=== PATIENT | male | born 1970 | race Caucasian/White ===

== ENCOUNTER 2016-11-09 18:19 | Inpatient (IN) | payer OTHER ==
[~2016-11-09] VITALS: Ht 182.9 cm; Wt 90.7 kg
--- NOTE | 2016-11-09 18:48 | ED GI/GU/ABDOMINAL COMPLAINT ---
History of Present Illness General Chief Complaint: Male Genitourinary Problems Stated Complaint: SENT BY DR ANDRADE FOR EVAL OF FEVER Source: patient Exam Limitations: no limitations Vital Signs & Intake/Output Vital Signs & Intake/Output Vital Signs Date Time Temp Pulse Resp B/P Pulse O2 O2 Flow FiO2 Ox Delivery Rate 11/09 2126 97.0 96 20 132/76 98 Room Air 11/09 1936 Room Air 11/09 1831 96.2 128 20 147/82 95 Room Air Allergies Coded Allergies: No Known Allergies (11/09/16) Reconcile Medications Aspirin (Ecotrin*) 81 MG TABLET.DR 10 TAB PO PRN PAIN (Reported) Divalproex Sodium (Divalproex Sodium ER) 500 MG TAB.ER.24H 1,500 MG PO QAM MENTAL HEALTH (Reported) Esomeprazole Magnesium (Nexium) 20 MG CAPSULE.DR 1 CAP PO DAILY GI (Reported) Hydroxyzine HCl 25 MG TABLET 2 CAP PO QPM MENTAL HEALTH (Reported) Mirtazapine 45 MG TABLET 1 TAB PO QPM MENTAL HEALTH (Reported) Quetiapine Fumarate 300 MG TABLET 2 TAB PO QPM MENTAL HEALTH (Reported) Venlafaxine HCl (Venlafaxine HCl ER) 150 MG CAP.ER.24H 2 CAP PO QPM MENTAL HEALTH (Reported) Triage Note: PT TO ED C/O LEFT TESTICLE PAIN AND SWELLING X A FEW WEEKS. PT SAW DR PUGH AND WAS GIVEN ABX AND PAIN MEDS. PT STATES HE IS DONE WITH THE ABX AND THE PAIN AND SWELLING IS STILL THERE. PT WENT TO SEE DR GONZALEZ AND WAS TOLD TO COME TO ED FOR FURTHER EVAL. PT AFEBRILE, HOWEVER SWEATING WITH RIGORS. Triage Nurses Notes Reviewed? yes Onset: Abrupt Duration: week(s):, constant, getting worse Timing: recent history Location: scrotal Radiation: no radiation No Modifying Factors: none HPI: 46-year-old male comes into emergency room with complaints of severe testicular pain and swelling. Patient reports that he saw his primary care doctor initially and was prescribed antibiotics. Symptoms got progressively worse. This is been going on-and-off for about a month. Patient saw Dr. Gonzalez today who sent into the emergency room for further evaluation. She shooting pain. Associated fever chills. (JIMENEZ SANFORD,TRENT) Past History Travel History Traveled to [place] past 21 day No Medical History Any Pertinent Medical History? see below for history Psychiatric: bipolar disease Surgical History Surgical History: non-contributory Psychosocial History What is your primary language Kiswahili Tobacco Use: Current Daily Use Daily Tobacco Use Amount/Type: => 5 Cigarettes daily ETOH Use: denies use Illicit Drug Use: denies illicit drug use Family History Hx Contributory? No (TRENT HAN) Review of Systems Review of Systems Constitutional: Reports: see HPI. EENTM: Reports: no symptoms. Respiratory: Reports: no symptoms. Cardiovascular: Reports: see HPI. GI: Reports: no symptoms. Genitourinary: Reports: no symptoms, see HPI. Musculoskeletal: Reports: no symptoms. Skin: Reports: no symptoms. Neurological/Psychological: Reports: no symptoms. Hematologic/Endocrine: Reports: no symptoms. Immunologic/Allergic: Reports: no symptoms. All Other Systems: Reviewed and Negative (TRENT HAN) Physical Exam Physical Exam General Appearance: alert, awake, moderate distress Head: atraumatic, normal appearance Eyes: Bilateral: normal appearance, EOMI. Ears, Nose, Throat, Mouth: hearing grossly normal, moist mucous membrane Neck: normal inspection, full range of motion Respiratory: normal breath sounds, no respiratory distress Cardiovascular: regular rate/rhythm, tachycardia Gastrointestinal: soft Male Genitals: severe swelling, testicles tender to palpation, firm, Extremities: normal range of motion Neurologic/Psych: awake, alert, oriented x 3, normal gait, normal mood/affect Skin: intact, normal color Core Measures ACS in differential dx? No Severe Sepsis Present: No Septic Shock Present: No (TRENT HAN) Progress Differential Diagnosis: orchitis, pancreatitis, prostatitis, peptic ulcer, PUD/ GERD, perforated viscous, pyelonephritis, testicular torsion, ureterolithiasis, urinary retention, urethritis, UTI/pyelo Plan of Care: Orders Procedure Date/time Status LACTIC ACID 11/09 2145 Active Admit to inpatient 11/09 2127 Active LACTIC ACID 11/09 184 Active EKG 11/09 1846 Active BLOOD CULTURE 11/09 183 Active URINALYSIS 11/09 183 Complete COMPREHENSIVE METABOLIC PANEL 11/09 183 Complete CBC WITHOUT DIFFERENTIAL 11/09 1829 Complete Laboratory Tests 11/09/165: Urine Color YEL, Urine Clarity CLEAR, Urine pH 8.0, Ur Specific [place] 1.015, Urine Protein 30 H, Urine Ketones NEG, Urine Nitrite NEG, Urine Bilirubin NEG, Urine Urobilinogen 1.0, Ur Leukocyte Esterase NEG, Ur Microscopic SEDIMENT EXAMINED, Urine WBC 1-3 H, Urine Mucus RARE, Urine Hemoglobin NEG, Urine Glucose NEG 11/09/162053: Lactic Acid Pending 11/09/161914: Anion Gap 15, Estimated GFR > 60, BUN/Creatinine Ratio 13.8, Glucose 102 H, Calcium 10.2, Total Bilirubin 0.5, AST 23, ALT 39, Alkaline Phosphatase 98, Total Protein 8.2, Albumin 4.4, Globulin 3.8, Albumin/Globulin Ratio 1.2, CBC w Diff NO MAN DIFF REQ, RBC 5.26, MCV 86.4, MCH 28.5, RDW 13.3, MPV 8.5, Gran % 71.8, Lymphocytes % 21.6, Monocytes % 4.5, Eosinophils % 1.9, Basophils % 0.2, Absolute Granulocytes 7.5 H, Absolute Lymphocytes 2.3, Absolute Monocytes 0.5, Absolute Eosinophils 0.2, Absolute Basophils 0, PUBS MCHC 33.0 Microbiology 11/09 1914 BLOOD: Blood Culture - RECD 11/09 1904 BLOOD: Blood Culture - RECD Diagnostic Imaging: Viewed by Me: Ultrasound. Discussed w/RAD: Ultrasound. Initial ED EKG: normal intervals, normal p-waves, normal sinus rhythm Hand-Off Endorsed To: FREDERICK LINDSAY,CASSIE Folres Endorsed Time: 2056 (TRENT HAN) Departure Departure Disposition: STILL A PATIENT Condition: Stable Clinical Impression Primary Impression: Epididymitis Referrals: SERJIO PUGH MD (PCP/Family) Departure Forms: Customer Survey General Discharge Information Admission Note Spoke With: JULIANE GONZALEZ MD Documentation of Exam: aDocumentation of any treatments & extenuating circumstances including Concerns Regarding Discharge (functional status, medication knowledge or non-compliance, living conditions, etc.) that warrant an admission rather than observation: Patient will require IV antibiotics. IV fluids. Possible surgery. Patient has failed outpatient treatment with oral medications. Patient will require IV pain control. (TRENT HAN) PA/MARBLE MACHINE OPERATOR Co-Sign Statement Statement: ED Attending supervision documentation- [] I saw and evaluated the patient. I have also reviewed all the pertinent lab results and diagnostic results. I agree with the findings and the plan of care as documented in the PA's/MARBLE MACHINE OPERATOR's documentation. [X] I have reviewed the ED Record and agree with the PA's/MARBLE MACHINE OPERATOR's documentation. [] Additions or exceptions (if any) to the PAs/MARBLE MACHINE OPERATOR's note and plan are summarized below: [] (FREDERICK LINDSAY,CASSIE Flores)
[2016-11-09] MEDS ORDERED: DIVALPROEX SOD500 M3 PO (18:57)
[2016-11-09] MEDS ORDERED: QUETIAPINE FUM300 M1 PO (18:59)
[2016-11-09] MEDS ORDERED: VENLAFAXINE HC150 MG PO (19:00)
[2016-11-09] MEDS ORDERED: MIRTAZAPINE45 M1 PO (19:01)
[2016-11-09] MEDS ORDERED: HYDROXYZINE HCL25 M2 PO (19:01)
[2016-11-09] MEDS ORDERED: NEXIUM20 M1 PO (19:02)
[2016-11-09] MEDS ORDERED: ASPIRIN EC81 M1 PO (19:02)
[2016-11-09 19:31] LABS: ABSOLUTE BASOPHIL COUNT 0 /CUMM (0.0-0.2); ABSOLUTE EOSINOPHIL COUNT 0.2 /CUMM (0.0-0.7); ABSOLUTE GRANULOCYTE CT 7.5 /CUMM (1.4-6.5); ABSOLUTE LYMPH COUNT 2.3 /CUMM (1.2-3.4); ABSOLUTE MONOCYTE COUNT 0.5 /CUMM (0.10-0.60); BASOPHIL % 0.2 % (0.0-2.0); EOSINOPHIL % 1.9 % (0-5); GRANULOCYTE % 71.8 % (42.2-75.2); HEMATOCRIT 45.4 % (42-52); MEAN CORPUSCULAR HGB 28.5 PG (27.0-31.0); MEAN CORPUSCULAR VOLUME 86.4 FL (80.0-94.0); MEAN PLATELET VOLUME 8.5 FL (7.4-10.4); PLATELET COUNT 525 /CUMM (130-400); RBC DISTRIBUTION WIDTH 13.3 % (11.5-14.5); RED BLOOD CELL CT 5.26 /CUMM (4.70-6.10); WHITE BLOOD CELL COUNT 10.5 /CUMM (4.8-10.8)
--- NOTE | 2016-11-09 20:57 | ULTRASOUND REPORT ---
EXAMINATION: ULTRASOUND SCROTUM CLINICAL INFORMATION: Fever. Testicular pain. COMPARISON: Testicular ultrasound 10/27/2016 TECHNIQUE: Routine scrotal ultrasound with grayscale and spectral and color Doppler. FINDINGS: Testicle: There is homogeneous echotexture of the right and left testicle. No suspicious focal lesion. There is normal variant of an appendix left testicle at the superior pole. Doppler demonstrates arterial and venous vascular flow in both testicles. Right testicle: 4 x 2 x 2.7 cm. Volume 15.3 mL Left testicle: 3.8 x 2.6 x 1.3 cm. Volume 9.1 mL Epididymis: There is normal vascular flow with Doppler.. No abnormal mass. Varices: There is no varices. Hydrocele: There is a left-sided hydrocele. Measures 8.3 x 4.3 x 5.2 cm. There are a few low-level echoes in the fluid which is otherwise anechoic. The hydrocele on the left is similar to prior exam of 10/27/2016. No right-sided hydrocele. Scrotal wall: Unremarkable. IMPRESSION: Large left-sided hydrocele. Normal vascular flow in right and left testicle.
--- NOTE | 2016-11-09 21:50 | Cons- Urology ---
General Information and HPI Consulting Request Date of Consult: 11/09/16 Requested By: MD FREDERICK, ELMIRA Reason for Consult: chills, rigors, severe left scrotal/testicle pain Source of Information: patient Exam Limitations: no limitations History of Present Illness: 46 YEAR OLD WITH LEFT SCROTAL PAIN AND SWELLING, TXD FOR ONE WEEK WITH ABX, AND IS NOW WORSE WITH RIGORS, N/V, CHILLS. NO FEVER, NO DYSURIA. Allergies/Medications Allergies: Coded Allergies: No Known Allergies (11/09/16) Home Med List: Aspirin (Ecotrin*) 81 MG TABLET.DR 10 TAB PO PRN PAIN (Reported) Divalproex Sodium (Divalproex Sodium ER) 500 MG TAB.ER.24H 1,500 MG PO QAM MENTAL HEALTH (Reported) Esomeprazole Magnesium (Nexium) 20 MG CAPSULE.DR 1 CAP PO DAILY GI (Reported) Hydroxyzine HCl 25 MG TABLET 2 CAP PO QPM MENTAL HEALTH (Reported) Mirtazapine 45 MG TABLET 1 TAB PO QPM MENTAL HEALTH (Reported) Quetiapine Fumarate 300 MG TABLET 2 TAB PO QPM MENTAL HEALTH (Reported) Venlafaxine HCl (Venlafaxine HCl ER) 150 MG CAP.ER.24H 2 CAP PO QPM MENTAL HEALTH (Reported) Current Medications: Current Medications Sig/Delia Start time Last Medication Dose Route Stop Time Status Admin Ampicillin Sodium/ 0 .STK-MED ONE 11/09 1905 DC Sulbactam Sodium .ROUTE Ampicillin Sodium/ 3,000 MG ONCE ONE 11/09 1830 DC 11/09 Sulbactam Sodium IV 11/09 Sodium Chloride 100 ML Hydromorphone HCl 1 MG ONCE ONE 11/09 2100 DC 11/09 IV 11/09 Hydromorphone HCl 0 .STK-MED ONE 11/09 2099 DC .ROUTE Hydromorphone HCl 0 .STK-MED ONE 11/09 1905 DC .ROUTE Hydromorphone HCl 1 MG ONCE ONE 11/09 1900 DC 11/09 IV 11/09 Sodium Chloride 1,000 ML BOLUS ONE 11/09 1900 DC 11/09 IV 11/09 Past History Medical History Blood Transfusion Hx: No Psychiatric: bipolar disease Surgical History Pertinent Surgical History: non-contributory Psychosocial History Where Do You Live? Home Who Do You Live With? self Services at Home: None Primary Language: Hungarian ETOH Use: denies use Illicit Drug Use: denies illicit drug use Employment History Employment: Employed Profession/Employer: [employer] Retired? no Review of Systems Review of Systems Constitutional: Denies: no symptoms. EENTM: Denies: no symptoms. Cardiovascular: Reports: palpitations. Respiratory: Denies: no symptoms. GI: Reports: abdominal pain. Genitourinary: Reports: see HPI. Musculoskeletal: Reports: muscle pain, muscle stiffness. Exam & Diagnostic Data Vital Signs and I&O Vital Signs Date Time Temp Pulse Resp B/P Pulse O2 O2 Flow FiO2 Ox Delivery Rate 11/09 2126 97.0 96 20 132/76 98 Room Air 11/09 1935 Room Air 11/09 1830 96.2 128 20 147/82 95 Room Air Physical Exam General Appearance: well developed/nourished Head: atraumatic Eyes: Bilateral: normal appearance. Neck: normal inspection Respiratory: normal breath sounds Cardiovascular: tachycardia Gastrointestinal: normal bowel sounds, soft Back: no vertebral tenderness Extremities: normal inspection Reproductive: LEFT SCROTUM FIRM AND PAINFUL Last 24 Hours of Labs: Laboratory Tests 11/09 Chemistry Lactic Acid (0.7 - 2.1 mmol/L) 1.1 Urines Urine Color (YEL,AMB,STR) YEL Urine Clarity (CLEAR) CLEAR Urine pH (5.0 - 8.0) 8.0 Ur Specific [place] (1.001 - 1.035) 1.015 Urine Protein (NEG,<30 MG/DL) 30 H Urine Ketones (NEG) NEG Urine Nitrite (NEG) NEG Urine Bilirubin (NEG) NEG Urine Urobilinogen (0.1 - 1.0 EU/dl) 1.0 Ur Leukocyte Esterase (NEG) NEG Ur Microscopic SEDIMENT EXAMINED Urine WBC (0 - 2 /HPF) 1-3 H Urine Mucus (FEW,NONE) RARE Urine Hemoglobin (NEG) NEG Urine Glucose (N MG/DL) NEG 11/09 1914 Chemistry Sodium (137 - 145 mmol/L) 144 Potassium (3.5 - 5.1 mmol/L) 4.9 Chloride (98 - 107 mmol/L) 100 Carbon Dioxide (22 - 30 mmol/L) 28 Anion Gap (5 - 16) 15 BUN (9 - 20 mg/dL) 11 Creatinine (0.7 - 1.2 mg/dL) 0.8 Estimated GFR (>60 ml/min) > 60 BUN/Creatinine Ratio (7 - 25 %) 13.8 Glucose (65 - 99 mg/dL) 102 H Calcium (8.4 - 10.2 mg/dL) 10.2 Total Bilirubin (0.2 - 1.3 mg/dL) 0.5 AST (17 - 59 U/L) 23 ALT (21 - 72 U/L) 39 Alkaline Phosphatase (< 127 U/L) 98 Total Protein (6.3 - 8.2 g/dL) 8.2 Albumin (3.5 - 5.0 g/dL) 4.4 Globulin (1.9 - 4.2 gm/dL) 3.8 Albumin/Globulin Ratio (1.1 - 2.2 %) 1.2 Hematology CBC w Diff NO MAN DIFF REQ WBC (4.8 - 10.8 /CUMM) 10.5 RBC (4.70 - 6.10 /CUMM) 5.26 Hgb (14.0 - 18.0 G/DL) 15.0 Hct (42 - 52 %) 45.4 MCV (80.0 - 94.0 FL) 86.4 MCH (27.0 - 31.0 PG) 28.5 RDW (11.5 - 14.5 %) 13.3 Plt Count (130 - 400 /CUMM) 525 H MPV (7.4 - 10.4 FL) 8.5 Gran % (42.2 - 75.2 %) 71.8 Lymphocytes % (20.5 - 51.1 %) 21.6 Monocytes % (1.7 - 9.3 %) 4.5 Eosinophils % (0 - 5 %) 1.9 Basophils % (0.0 - 2.0 %) 0.2 Absolute Granulocytes (1.4 - 6.5 /CUMM) 7.5 H Absolute Lymphocytes (1.2 - 3.4 /CUMM) 2.3 Absolute Monocytes (0.10 - 0.60 /CUMM) 0.5 Absolute Eosinophils (0.0 - 0.7 /CUMM) 0.2 Absolute Basophils (0.0 - 0.2 /CUMM) 0 PUBS MCHC (33.0 - 37.0 G/DL) 33.0 Imaging Results: PATIENT: FLYNTZ,JESSICA PRESENT AGE: 46 PATIENT ACCOUNT NO: [id number] : 71 LOCATION: [facility] ORDERING PHYSICIAN: GARY MARTE MD SERVICE DATE: 11/09/16 EXAM TYPE: US - US-TESTICULAR EXAMINATION: ULTRASOUND SCROTUM CLINICAL INFORMATION: Fever. Testicular pain. COMPARISON: Testicular ultrasound 10/27/2016 TECHNIQUE: Routine scrotal ultrasound with grayscale and spectral and color Doppler. FINDINGS: Testicle: There is homogeneous echotexture of the right and left testicle. No suspicious focal lesion. There is normal variant of an appendix left testicle at the superior pole. Doppler demonstrates arterial and venous vascular flow in both testicles. Right testicle: 4 x 2 x 2.7 cm. Volume 15.3 mL Left testicle: 3.8 x 2.6 x 1.3 cm. Volume 9.1 mL Epididymis: There is normal vascular flow with Doppler.. No abnormal mass. Varices: There is no varices. Hydrocele: There is a left-sided hydrocele. Measures 8.3 x 4.3 x 5.2 cm. There are a few low-level echoes in the fluid which is otherwise anechoic. The hydrocele on the left is similar to prior exam of 10/27/2016. No right-sided hydrocele. Scrotal wall: Unremarkable. IMPRESSION: Large left-sided hydrocele. Normal vascular flow in right and left testicle. Assessment/Plan Assessment/Plan LEFT EPIDIDYMO-ORCHITIS WITH RIGORS/CHILLS/ADMIT FOR IV ABX AND PAIN MANAGEMENT Copies To: JULIANE QUINTERO MD Consult Acknowledgment - Thank you for your consult request. Attending MD Review Statement Attending Statement Attending MD Statement: examined this patient Attending Assessment/Plan: EPIDIDYMITIS-ORCHITIS: SEVERE, ADMIT FOR ABX AND PAIN CONTROL
[2016-11-10 00:30] VITALS: BP 138/84
[2016-11-10 08:17] LABS: ABSOLUTE BASOPHIL COUNT 0 /CUMM (0.0-0.2); ABSOLUTE EOSINOPHIL COUNT 0.3 /CUMM (0.0-0.7); ABSOLUTE GRANULOCYTE CT 5.5 /CUMM (1.4-6.5); ABSOLUTE LYMPH COUNT 2.9 /CUMM (1.2-3.4); ABSOLUTE MONOCYTE COUNT 0.6 /CUMM (0.10-0.60); BASOPHIL % 0.3 % (0.0-2.0); EOSINOPHIL % 3.5 % (0-5); GRANULOCYTE % 58.7 % (42.2-75.2); MEAN CORPUSCULAR HGB CONC 33.4 G/DL (33.0-37.0); MEAN CORPUSCULAR VOLUME 86.7 FL (80.0-94.0); PLATELET COUNT 522 /CUMM (130-400); RBC DISTRIBUTION WIDTH 13.2 % (11.5-14.5); WHITE BLOOD CELL COUNT 9.3 /CUMM (4.8-10.8)
[2016-11-10 08:19] VITALS: BP 132/78
[2016-11-10 08:31] LABS: HEMATOCRIT 36.4 % (42-52)
--- NOTE | 2016-11-10 10:16 | Admission Certification ---
Admission Certification Certification Statement - As attending physician, I certify that at the time of - admission, based on clinical presentation, severity of - symptoms, need for further diagnostic testing and - therapeutic interventions, and risk of adverse outcomes - without in-hospital treatment, in my clinical assessment, - this patient requires an acute hospital stay for a minimum - of two nights or longer. I have also considered psychsocial - factors such as support system, advanced age, financial - issues, cognitive issues, and failed out-patient treatments, - past re-admission history, safety of patient, and lack of - compliance as applicable. Specific rationale supporting this admission is: acute epididymitis
--- NOTE | 2016-11-10 10:22 | PN- Att Addend ---
Attending Addendum Attending Brief Note Patient complains of left scrotal pain and swelling General Appearance: Alert, No Acute Distress Skin: Grossly normal HEENT: PEERLA Neck: Supple, No JVD Cardiovascular: Regular Rate, Normal S1, Normal S2, No Murmurs Lungs: Clear to Auscultation, Normal Air Movement Abdomen: Left scrotal swelling, redness and tenderness Neurological: Normal Speech, Strength at 5/5 X4 Ext, Cranial Nerves 3-12 NL, Reflexes 2+ Extremities: No Clubbing, No Cyanosis, No Edema Vascular: Normal Pulses Assessment 46-year-old with history of bipolar disorder and chronic back pain presenting with left scrotal pain and swelling that is on and off for last few weeks. He was seen at our office and was started on oral antibiotics with failure. He now presents with severe pain associated with chills and rigors. He has acute epididymitis. He will be treated conservatively with IV antibiotics with urology consult Plan Continue IV Unasyn Follow blood cultures Urology consult Continue other home meds DVT prophylaxis Current Medications Sig/Delia Start time Last Medication Dose Route Stop Time Status Admin Acetaminophen 650 MG Q6PRN PRN 11/09 2200 AC PO Al Hydroxide/Mg 30 ML Q6P PRN 11/09 2200 AC Hydroxide PO Ampicillin Sodium/ 3,000 MG Q6 11/10 1200 AC Sulbactam Sodium IV Sodium Chloride 100 ML Ampicillin Sodium/ 0 .STK-MED ONE 11/09 1905 DC Sulbactam Sodium .ROUTE Ampicillin Sodium/ 3,000 MG ONCE ONE 11/09 1830 DC 11/09 Sulbactam Sodium IV 11/09 1859 1919 Sodium Chloride 100 ML Divalproex Sodium 500 MG TID 11/09 2200 AC 11/10 PO 0937 Docusate Sodium 100 MG DAILY 11/10 1000 AC PO Folic Acid 1 MG DAILY 11/10 1000 AC 11/10 PO 0937 Heparin Sodium 0 .STK-MED ONE 11/09 2232 DC (Porcine) .ROUTE Heparin Sodium 5,000 UNIT Q8 11/09 2200 AC 11/09 (Porcine) SC 2244 Hydromorphone HCl 1 MG ONCE ONE 11/09 2100 DC 11/09 IV 11/09 2100 210 Hydromorphone HCl 0 .STK-MED ONE 11/09 2100 DC .ROUTE Hydromorphone HCl 0 .STK-MED ONE 11/09 1905 DC .ROUTE Hydromorphone HCl 1 MG ONCE ONE 11/09 1899 DC 11/09 IV 11/09 Hydroxyzine HCl 25 MG AT BEDTIME NEED.. 11/09 2214 AC PO Mirtazapine 7.5 MG AT BEDTIME 11/10 2199 AC PO Multivitamins 1 TAB DAILY 11/10 1000 AC 11/10 PO 0937 Omeprazole 40 MG DAILY AC 11/10 0700 AC 11/10 PO 0543 Ondansetron HCl 4 MG Q8P PRN 11/09 2199 AC IV Oxycodone/ 2 TAB Q4P PRN 11/09 2214 AC 11/10 Acetaminophen PO 0937 Oxycodone/ 1 TAB Q6P PRN 11/09 2214 AC Acetaminophen PO Sodium Chloride 1,000 ML .Q10H 11/09 2199 AC 11/10 IV 0552 Sodium Chloride 1,000 ML BOLUS ONE 11/09 1899 DC 11/09 IV 11/09 Venlafaxine HCl 37.5 MG BID 11/09 2202 AC 11/10 PO 0937 Zolpidem Tartrate 2.5 MG AT BEDTIME NEED.. 11/09 2199 AC 11/10 PO 0041 Laboratory Tests 11/10 11/09 0610 2146 Chemistry Sodium (137 - 145 mmol/L) 145 Potassium (3.5 - 5.1 mmol/L) 4.4 Chloride (98 - 107 mmol/L) 104 Carbon Dioxide (22 - 30 mmol/L) 29 Anion Gap (5 - 16) 12 BUN (9 - 20 mg/dL) 12 Creatinine (0.7 - 1.2 mg/dL) 0.7 Estimated GFR (>60 ml/min) > 60 BUN/Creatinine Ratio (7 - 25 %) 17.1 Lactic Acid Cancelled Hematology CBC w Diff NO MAN DIFF REQ WBC (4.8 - 10.8 /CUMM) 9.3 RBC (4.70 - 6.10 /CUMM) 4.20 L Hgb (14.0 - 18.0 G/DL) 12.2 L Hct (42 - 52 %) 36.4 L MCV (80.0 - 94.0 FL) 86.7 MCH (27.0 - 31.0 PG) 29.0 RDW (11.5 - 14.5 %) 13.2 Plt Count (130 - 400 /CUMM) 522 H MPV (7.4 - 10.4 FL) 8.0 Gran % (42.2 - 75.2 %) 58.7 Lymphocytes % (20.5 - 51.1 %) 30.7 Monocytes % (1.7 - 9.3 %) 6.8 Eosinophils % (0 - 5 %) 3.5 Basophils % (0.0 - 2.0 %) 0.3 Absolute Granulocytes (1.4 - 6.5 /CUMM) 5.5 Absolute Lymphocytes (1.2 - 3.4 /CUMM) 2.9 Absolute Monocytes (0.10 - 0.60 /CUMM) 0.6 Absolute Eosinophils (0.0 - 0.7 /CUMM) 0.3 Absolute Basophils (0.0 - 0.2 /CUMM) 0 PUBS MCHC (33.0 - 37.0 G/DL) 33.4 11/09 Chemistry Lactic Acid (0.7 - 2.1 mmol/L) 1.1 Urines Urine Color (YEL,AMB,STR) YEL Urine Clarity (CLEAR) CLEAR Urine pH (5.0 - 8.0) 8.0 Ur Specific [place] (1.001 - 1.035) 1.015 Urine Protein (NEG,<30 MG/DL) 30 H Urine Ketones (NEG) NEG Urine Nitrite (NEG) NEG Urine Bilirubin (NEG) NEG Urine Urobilinogen (0.1 - 1.0 EU/dl) 1.0 Ur Leukocyte Esterase (NEG) NEG Ur Microscopic SEDIMENT EXAMINED Urine WBC (0 - 2 /HPF) 1-3 H Urine Mucus (FEW,NONE) RARE Urine Hemoglobin (NEG) NEG Urine Glucose (N MG/DL) NEG 11/09 1914 Chemistry Sodium (137 - 145 mmol/L) 144 Potassium (3.5 - 5.1 mmol/L) 4.9 Chloride (98 - 107 mmol/L) 100 Carbon Dioxide (22 - 30 mmol/L) 28 Anion Gap (5 - 16) 15 BUN (9 - 20 mg/dL) 11 Creatinine (0.7 - 1.2 mg/dL) 0.8 Estimated GFR (>60 ml/min) > 60 BUN/Creatinine Ratio (7 - 25 %) 13.8 Glucose (65 - 99 mg/dL) 102 H Calcium (8.4 - 10.2 mg/dL) 10.2 Total Bilirubin (0.2 - 1.3 mg/dL) 0.5 AST (17 - 59 U/L) 23 ALT (21 - 72 U/L) 39 Alkaline Phosphatase (< 127 U/L) 98 Total Protein (6.3 - 8.2 g/dL) 8.2 Albumin (3.5 - 5.0 g/dL) 4.4 Globulin (1.9 - 4.2 gm/dL) 3.8 Albumin/Globulin Ratio (1.1 - 2.2 %) 1.2 Hematology CBC w Diff NO MAN DIFF REQ WBC (4.8 - 10.8 /CUMM) 10.5 RBC (4.70 - 6.10 /CUMM) 5.26 Hgb (14.0 - 18.0 G/DL) 15.0 Hct (42 - 52 %) 45.4 MCV (80.0 - 94.0 FL) 86.4 MCH (27.0 - 31.0 PG) 28.5 RDW (11.5 - 14.5 %) 13.3 Plt Count (130 - 400 /CUMM) 525 H MPV (7.4 - 10.4 FL) 8.5 Gran % (42.2 - 75.2 %) 71.8 Lymphocytes % (20.5 - 51.1 %) 21.6 Monocytes % (1.7 - 9.3 %) 4.5 Eosinophils % (0 - 5 %) 1.9 Basophils % (0.0 - 2.0 %) 0.2 Absolute Granulocytes (1.4 - 6.5 /CUMM) 7.5 H Absolute Lymphocytes (1.2 - 3.4 /CUMM) 2.3 Absolute Monocytes (0.10 - 0.60 /CUMM) 0.5 Absolute Eosinophils (0.0 - 0.7 /CUMM) 0.2 Absolute Basophils (0.0 - 0.2 /CUMM) 0 PUBS MCHC (33.0 - 37.0 G/DL) 33.0 Vital Signs Date Time Temp Pulse Resp B/P Pulse O2 O2 Flow FiO2 Ox Delivery Rate 11/10 0819 97.0 89 18 132/78 95 Room Air 11/10 0030 98.0 94 20 138/84 97 Room Air 11/09 2245 97.1 90 18 122/68 99 Room Air 11/097 97.0 96 20 132/76 98 Room Air 11/09 1936 Room Air 11/09 1831 96.2 128 20 147/82 95 Room Air
--- NOTE | 2016-11-10 14:27 | History & Physical ---
JENNIFER REYES 11/10/16 1427: General Information and HPI MD Statement: I have seen and personally examined JESSICA LEIJA and documented this H&P. The patient is a 46 year old M who presented with a patient stated chief complaint of left scrotal pain Source of Information: patient, old records Exam Limitations: no limitations History of Present Illness: Mr Leija is a 46-year-old man who was known to be in his usual state of health until 6 weeks ago. He has a history of bipolar disorder, chronic pain disorder. He came to [facility] with chief concern of worsening left scrotal swelling and pain 6 weeks. As per the patient, he had difficulty urination and pain in his left scrotum after he drove for 17 hours 6 weeks ago, which worsened in the last 2 weeks.. Pain located in the left scrotum, no radiation, 7/10 in severity. Inability to move or work. Reports difficulty urination, but no dysuria. No abnormal discharge. Reports no ejaculation. Also reports fever (recorded temp 100.1), associated with chills. Treated with antibiotics for a week, with no improvement. No injury reported. No abdominal pain, nausea or vomiting. Reports last sexual encounter 2 months ago, monogamous relationship and unprotected sexual intercourse. Nonsmoker [id number] history. No IVDA. Allergies/Medications Allergies: Coded Allergies: No Known Allergies (11/09/16) Home Med list Aspirin (Ecotrin*) 81 MG TABLET.DR 10 TAB PO PRN PAIN (Reported) Divalproex Sodium (Divalproex Sodium ER) 500 MG TAB.ER.24H 1,500 MG PO QAM MENTAL HEALTH (Reported) Esomeprazole Magnesium (Nexium) 20 MG CAPSULE.DR 1 CAP PO DAILY GI (Reported) Hydroxyzine HCl 25 MG TABLET 2 CAP PO QPM MENTAL HEALTH (Reported) Mirtazapine 45 MG TABLET 1 TAB PO QPM MENTAL HEALTH (Reported) Quetiapine Fumarate 300 MG TABLET 2 TAB PO QPM MENTAL HEALTH (Reported) Venlafaxine HCl (Venlafaxine HCl ER) 150 MG CAP.ER.24H 2 CAP PO QPM MENTAL HEALTH (Reported) Past History Travel History Traveled to [place] past 21 day No Medical History Blood Transfusion Hx: No Neurological: NONE EENT: NONE Cardiovascular: NONE Respiratory: NONE Gastrointestinal: NONE Hepatic: NONE Renal: NONE Musculoskeletal: NONE Psychiatric: bipolar disease Endocrine: NONE Blood Disorders: NONE Cancer(s): NONE TITLE SEARCHER/Reproductive: NONE History of MRSA: No History of VRE: No History of CDIFF: No Isolation History: Standard Surgical History Surgical History: spinal fusion Past Family/Social History Family History Relations & Conditions if any FATHER (thymoma ?). Psychosocial History Where do you live? Home Who Do You Live With? self Services at Home: None Primary Language: Cymro Smoking Status: Current Everyday Smoker ETOH Use: denies use Illicit Drug Use: denies illicit drug use Employment History Employment Employed Profession/Employer [employer] Review of Systems Review of Systems Constitutional: Reports: chills, fever, weakness. EENTM: Denies: visual changes. Cardiovascular: Denies: chest pain, orthopena, palpitations. Respiratory: Denies: cough, orthopnea. GI: Denies: abdominal pain. Genitourinary: Reports: frequency, hesitation, pain. Denies: dysuria, nocturia, urgency. Musculoskeletal: Denies: back pain, joint pain. Skin: Denies: jaundice. Neurological/Psychological: Reports: anxiety, depressed, emotional problems. Denies: tingling. Hematologic/Endocrine: Denies: bruising, bleeding. Exam & Diagnostic Data Last 24 Hrs of Vital Signs/I&O Vital Signs Date Time Temp Pulse Resp B/P Pulse O2 O2 Flow FiO2 Ox Delivery Rate 11/10 1555 97.4 75 19 130/88 96 11/10 0819 97.0 89 18 132/78 95 Room Air 11/10 0030 98.0 94 20 138/84 97 Room Air 11/09 2245 97.1 90 18 122/68 99 Room Air Intake & Output 11/10 1600 11/10 0800 11/10 0000 Intake Total 1750 1300 1000 Output Total Balance 1750 1300 1000 Intake, IV 470 039 4295 Intake, Oral 950 600 Number 1 Bowel Movements Patient 200 lb 200 lb Weight Physical Exam General Appearance Alert, Oriented X3, Cooperative, No Acute Distress Skin No Rashes, No Breakdown, No Significant Lesion, left scrotal swelling and erythema tenderness + HEENT Atraumatic, PERRLA, EOMI, Mucous Membr. moist/pink Neck Supple, No JVD, No thryomegaly, +2 Carotid Pulse wo Bruit, No LAD Lymphatic Axillary nl, Cervical nl Cardiovascular Regular Rate, Normal S1, Normal S2, No Murmurs Lungs Clear to Auscultation, Normal Air Movement Abdomen Normal Bowel Sounds, Soft, No Tenderness, No Hepatospenomegaly, No Masses Neurological Normal Speech, Strength at 5/5 X4 Ext, Normal Tone, Sensation Intact, Cranial Nerves 3-12 NL, Reflexes 2+ Extremities No Clubbing, No Cyanosis, No Edema, Normal Pulses, No Tenderness/ Swelling Vascular Pulses Symmetrical Diagnostic Data EKG Results Normal sinus rhythm, QTc 470. Other Results US - US-TESTICULAR Hydrocele: There is a left-sided hydrocele. Measures 8.3 x 4.3 x 5.2 cm. There are a few low-level echoes in the fluid which is otherwise anechoic. The hydrocele on the left is similar to prior exam of 10/27/2016. No right-sided hydrocele. Scrotal wall: Unremarkable. IMPRESSION: Large left-sided hydrocele. Normal vascular flow in right and left testicle. Assessment/Plan Assessment: He is a young man with a past history of bipolar disorder is being evaluated for left scrotal swelling, pain, fever. He was treated with antibiotics, with no resolution of symptoms. At the time of admission, temperature 97.0, pulse rate 89, respiratory rate 18, blood pressure 132/78, pulse ox 95% on room air. No leukocytosis WBC 10.5, hemoglobin 15.0, platelets 522, serum electrolytes sodium 144, potassium 4.9, bicarbonate 28, BUN 11, creatinine 0.8. Urinalysis did not reveal any pyuria or leukocyte esterase. Urine toxicology reviewed elevated benzodiazepines, cannabis, urine opiates. Ultrasound of the testes reveals large left-sided hydrocele. Normal vascular flow in the right and left testicle. No evidence of torsion. Differential diagnosis: #1 hydrocele #2 epididymitis #3 orchitis #4 inguinal hernia Below is the problem list and plan: #1 left scrotal swelling-likely because of hydrocele and epididymitis/orchitis. Likely organisms are mostly Klebsiella, chlamydia, neisseria, Escherichia coli. To cover with ceftriaxone and doxycycline. Alternatively could use fluoroquinolone. Consider revisiting the triceps of antibiotic. Blood cultures. Chlamydia PCR to be sent. Continue to monitor for leukocytosis and fever. For hydrocele-urology consult. #2 pain management-Percocet. Consider reevaluation of pain medications, as per urology. #4 mental health-history of bipolar disorder. Consult psychiatry, for titrating the diagnosis of medications. #5 DVT prophylaxis-heparin. As Ranked By This Provider Problem List: 1. Epididymitis 2. Marijuana abuse 3. Benzodiazepine abuse 4. Opiate dependence Core Measures/Miscellaneous Acute Coronary Syndrome ACS Diagnosis: No Cerebrovascular Accident CVA/TIA Diagnosis: No Congestive Heart Failure CHF Diagnosis: No Venous Thromboembolism VTE Risk Factors: Acute medical illness, Age > 40 VTE Prophylaxis Ordered Inpt: Pharm- Heparin No Mech VTE prophylaxis d/t: No contraindications No VTE Pharm Prophylaxis d/t: No contraindications VTE Diagnosis: No VTE Type: NONE VTE Confirmed by (Test): NONE Severe Sepsis Severe Sepsis Present: No Septic Shock Septic Shock Present: No Miscellaneous Documentation Attending Case Discussed With: MICHELLE POTTER MD Primary Care Physician: SERJIO PUGH MD Patient sees these Specialists Dr. Gonzalez Level of Patient Care: General Medicine MICHELLE POTTER MD 11/10/16 6998: Attending MD Review Statement Attending Statement Attending MD Statement: examined this patient, discuss w/resident/PA/GEL COAT SPRAYER, agreed w/resident/PA/GEL COAT SPRAYER, discussed with family, reviewed EMR data (avail) ELOISA NUÑEZ MD 11/10/16 2305: Resident Review Statement Resident Statement: examined this patient, discussed with internet marketing strategist, agreed with internet marketing strategist, discussed with family, reviewed EMR data (avail), discussed with nursing , discussed with case mgmt, reviewed images, amended to note Other Findings: 46 yo male with pmh of bipolar disorder p/w Lt. testicular swelling. He was seen by Dr. Pugh and given po augmentin 11/02-, but his symptoms didn't improve. Since he had spinal fusion L5-S1 in 2004, he had urinary incontinence. From 2015, he has been suffering ongoing Lt. scrotal swelling with discomfort associated with abnormal ejaculation. He c/o urinary incontinence, dysuria. He denies hematuria or penile discharge. No new sexual parter; he was in relationship with his ex-girlfriend for 4 years, last intercourse around gi. No hx of STDs. He has been sexually inactive for 2 months. He c/o fever/chills, 100.1 F at home. 1. Failed outpt abx treatment for Lt. epididymitis: urology consult was obtained from Dr. Gonzalez. IV unasyn was initiated, but to cover Chlamydia/N.gonorrhea, may consider IV/IM ceftriaxone with ciprofloxacin. Continue IV hydration, pain control, monitor CBC. 2. Bipolar disorder: He followed outpt psychiatry and on different antipsychotics with high doses. EKG [id number], will decrease the dose of seroquel, hydroxyzine. Repeat EKG in 6am. Pt denies SI/HI. DVT ppx: SC heparin, DNR/I
[2016-11-10 15:55] VITALS: BP 130/88
[2016-11-10 16:51] VITALS: BP 172/90
[2016-11-11 00:08] VITALS: BP 128/76
--- NOTE | 2016-11-11 04:56 | Event Note ---
Event Note Event Note: Rapid response was called at 4 o'clock. We went to see the patient. He was conscious, cooperative, oriented to time, place and person. His vitals were blood pressure 153/85, pulse 85, temperature 96.7, SPO2 94%, blood sugar 65. Discussed with the nurse according to her. He tripped within the lines and fell and hit his shoulder. We advised to drink a glass of juice and also check the movements in the shoulder which were normal without any pain. We did check the blood sugar in 20 minutes, which was 70. We advised more sugar-containing juice and biscuits. Patient denies dizziness, palpitations, nausea, vomiting, fever, black in front of eyes
[2016-11-11 07:50] LABS: ABSOLUTE BASOPHIL COUNT 0.1 /CUMM (0.0-0.2); ABSOLUTE EOSINOPHIL COUNT 0.5 /CUMM (0.0-0.7); ABSOLUTE GRANULOCYTE CT 3.8 /CUMM (1.4-6.5); ABSOLUTE LYMPH COUNT 4.1 /CUMM (1.2-3.4); ABSOLUTE MONOCYTE COUNT 0.8 /CUMM (0.10-0.60); BASOPHIL % 0.6 % (0.0-2.0); EOSINOPHIL % 5.6 % (0-5); HEMATOCRIT 36.2 % (42-52); MEAN CORPUSCULAR HGB 28.8 PG (27.0-31.0); MEAN CORPUSCULAR HGB CONC 33.1 G/DL (33.0-37.0); MEAN PLATELET VOLUME 7.9 FL (7.4-10.4); PLATELET COUNT 545 /CUMM (130-400); RBC DISTRIBUTION WIDTH 12.9 % (11.5-14.5); RED BLOOD CELL CT 4.16 /CUMM (4.70-6.10); WHITE BLOOD CELL COUNT 9.3 /CUMM (4.8-10.8)
--- NOTE | 2016-11-11 08:00 | PN- Housestaff ---
Subjective Follow-up For: Acute epididymal orchitis Subjective: He was comfortable this morning. Stated that pain is about the same, and has not changed compared to yesterday. -04/05. No other complaints. No difficulty urination. Remained afebrile overnight. Y toes were stable. Review of Systems Constitutional: Reports: see HPI. Objective Last 24 Hrs of Vital Signs/I&O Vital Signs Date Time Temp Pulse Resp B/P Pulse O2 O2 Flow FiO2 Ox Delivery Rate 11/11 0359 96 Room Air 11/11 0008 98.5 98 20 128/76 96 Room Air 11/10 1555 97.4 75 19 130/88 96 11/10 0819 97.0 89 18 132/78 95 Room Air Intake & Output 11/11 0800 11/11 0000 11/10 1600 Intake Total 900 1750 Output Total 500 Balance 400 1750 Intake, IV 100 800 Intake, Oral 800 950 Number 1 Bowel Movements Output, Urine 500 Physical Exam General Appearance: No Acute Distress Other Physical Findings: General Exam: AAOx3, No acute distress, Skin: No rashes, no breakdown, scrotal swelling on the left side. No discharge. HEENT: PERRLA, EOMI Neck: Supple, No JVD No cervical lymphadenopathy CVS: Reg Rate, Normal S1,S2, No MGR Resp: Normal air entry, no ronchi/rales Abdomen: Soft, No tenderness, Normal Bowel Sounds Neuro: Normal Speech, Strength 5/5 b/l x 4 extremities, Sensation intact, CN III -XII NL, Reflexes 2+ Extremities: No cyanosis, pedal edema Current Medications: Current Medications Sig/Delia Start time Last Medication Dose Route Stop Time Status Admin Acetaminophen 650 MG Q6PRN PRN 11/090 AC PO Al Hydroxide/Mg 30 ML Q6P PRN 11/09 2199 AC Hydroxide PO Ampicillin Sodium/ 3,000 MG Q6 11/10 1200 AC 11/11 Sulbactam Sodium IV 0534 Sodium Chloride 100 ML Divalproex Sodium 500 MG TID 11/09 2199 AC 11/10 PO 2151 Docusate Sodium 100 MG DAILY 11/10 1000 AC PO Folic Acid 1 MG DAILY 11/10 1000 AC 11/10 PO 0937 Heparin Sodium 5,000 UNIT Q8 11/09 2199 AC 11/09 (Porcine) SC 2244 Hydroxyzine HCl 25 MG AT BEDTIME NEED.. 11/09 2214 AC PO Mirtazapine 7.5 MG AT BEDTIME 11/10 2199 CAN PO Mirtazapine 45 MG AT BEDTIME 11/10 2199 DC PO Mirtazapine 15 MG AT BEDTIME 11/10 220 AC 11/10 PO 2150 Morphine Sulfate 2 MG Q4P PRN 11/10 1430 AC 11/10 IV 2353 Multivitamins 1 TAB DAILY 11/10 1000 AC 11/10 PO 0937 Omeprazole 20 MG DAILY AC 11/11 0700 AC 11/11 PO 0534 Omeprazole 40 MG DAILY AC 11/10 0700 DC 11/10 PO 0543 Ondansetron HCl 4 MG Q8P PRN 11/09 2199 AC IV Oxycodone/ 2 TAB Q4P PRN 11/09 221 DC 11/10 Acetaminophen PO 1350 Oxycodone/ 1 TAB Q6P PRN 11/09 221 AC 11/11 Acetaminophen PO 0418 Quetiapine Fumarate 600 MG AT BEDTIME 11/10 2199 DC PO Quetiapine Fumarate 300 MG AT BEDTIME 11/10 220 AC 11/10 PO 2150 Sodium Chloride 1,000 ML .Q10H 11/09 220 AC 11/11 IV 0417 Venlafaxine HCl 300 MG AT BEDTIME 11/10 220 AC 11/10 PO 2151 Venlafaxine HCl 37.5 MG BID 11/09 2202 DC 11/10 PO 0937 Zolpidem Tartrate 2.5 MG AT BEDTIME NEED.. 11/09 2199 AC 11/10 PO 0041 Last 24 Hrs of Lab/Dheeraj Results Last 24 Hrs of Labs/Mics: Laboratory Tests 11/11/16 0650: CBC w Diff Pending, WBC Pending, RBC Pending, Hgb Pending, Hct Pending, MCV Pending, MCH Pending, RDW Pending, Plt Count Pending, MPV Pending, Gran % Pending, Lymphocytes % Pending, Monocytes % Pending, Eosinophils % Pending, Basophils % Pending, Absolute Granulocytes Pending, Absolute Lymphocytes Pending , Absolute Monocytes Pending, Absolute Eosinophils Pending, Absolute Basophils Pending, PUBS MCHC Pending Assessment/Plan Assessment: He is a young man with a past history of bipolar disorder is being evaluated for left scrotal swelling, pain, fever. He was treated with antibiotics, with no resolution of symptoms. Ultrasound of the testes reveals large left-sided hydrocele. Normal vascular flow in the right and left testicle. No evidence of torsion. Differential diagnosis: #1 hydrocele #2 epididymitis #3 orchitis #4 inguinal hernia Below is the problem list and plan: #1 left scrotal swelling-likely because of hydrocele and epididymitis/orchitis. Likely organisms are mostly Klebsiella, chlamydia, neisseria, Escherichia coli. Changed the antibiotics to ceftriaxone and Levaquin. Blood cultures. Await results from Chlamydia and gonorrhea PCR. Continue to monitor for leukocytosis and fever. #2 pain management-Percocet. Consider reevaluation of pain medications, as per urology. #4 mental health-history of bipolar disorder. Consult psychiatry, for titrating the diagnosis of medications. #5 DVT prophylaxis-heparin. Problem List: 1. Epididymitis 2. Opiate dependence 3. Benzodiazepine abuse Pain Ratin Pain Location: Left scrotum Pain Goal: Pain 4 or less Pain Plan: Percocet Tomorrow's Labs & Rationales: No labs necessary. Currently stable. DVT/Prophylaxis: pharmacological (heparin)
[2016-11-11 08:03] VITALS: BP 153/85
[2016-11-11 08:25] VITALS: BP 140/82
--- NOTE | 2016-11-11 09:55 | PN- Att Addend ---
Attending Addendum Attending Brief Note Patient complains of improvement in pain General Appearance: Alert, No Acute Distress Skin: Grossly normal HEENT: PEERLA Neck: Supple, No JVD Cardiovascular: Regular Rate, Normal S1, Normal S2, No Murmurs Lungs: Clear to Auscultation, Normal Air Movement Abdomen: Left scrotal swelling, redness and tenderness Neurological: Normal Speech, Strength at 5/5 X4 Ext, Cranial Nerves 3-12 NL, Reflexes 2+ Extremities: No Clubbing, No Cyanosis, No Edema Vascular: Normal Pulses Assessment 46-year-old with history of bipolar disorder and chronic back pain presenting with left scrotal pain and swelling that is on and off for last few weeks. He was seen at our office and was started on oral antibiotics with failure. He now presents with severe pain associated with chills and rigors. He has acute epididymitis. Will broaden the spectrum of antibiotics to include possible sexually transmitted disease pathogens given her risk. In the meantime we will test him for chlamydia and gonorrhea urine antigen. Plan Discontinue Unasyn and start IV ceftriaxone and levofloxacin 500 mg once daily Sent chlamydia and gonorrhea urine antigen Test STD panel Continue other home meds DVT prophylaxis Current Medications Sig/Delia Start time Last Medication Dose Route Stop Time Status Admin Acetaminophen 650 MG Q6PRN PRN 11/09 2199 AC PO Al Hydroxide/Mg 30 ML Q6P PRN 11/09 2199 AC Hydroxide PO Ampicillin Sodium/ 3,000 MG Q6 11/10 1200 AC 11/11 Sulbactam Sodium IV 0534 Sodium Chloride 100 ML Divalproex Sodium 500 MG TID 11/09 220 AC 11/11 PO 0931 Docusate Sodium 100 MG DAILY 11/10 1000 AC PO Folic Acid 1 MG DAILY 11/10 1000 AC 11/11 PO 0931 Heparin Sodium 5,000 UNIT Q8 11/09 2199 AC 11/09 (Porcine) SC 2244 Hydroxyzine HCl 25 MG AT BEDTIME NEED.. 11/09 2214 AC PO Mirtazapine 7.5 MG AT BEDTIME 11/10 2199 CAN PO Mirtazapine 45 MG AT BEDTIME 11/10 2199 DC PO Mirtazapine 15 MG AT BEDTIME 11/10 2200 AC 11/10 PO 2150 Morphine Sulfate 2 MG Q4P PRN 11/10 1430 AC 11/11 IV 0941 Multivitamins 1 TAB DAILY 11/10 1000 AC 11/11 PO 0931 Omeprazole 20 MG DAILY AC 11/11 0700 AC 11/11 PO 0534 Omeprazole 40 MG DAILY AC 11/10 0700 DC 11/10 PO 0543 Ondansetron HCl 4 MG Q8P PRN 11/09 2199 AC IV Oxycodone/ 2 TAB Q4P PRN 11/09 2214 DC 11/10 Acetaminophen PO 1350 Oxycodone/ 1 TAB Q6P PRN 11/09 2214 AC 11/11 Acetaminophen PO 0418 Quetiapine Fumarate 600 MG AT BEDTIME 11/10 2199 DC PO Quetiapine Fumarate 300 MG AT BEDTIME 11/10 2199 AC 11/10 PO 2150 Sodium Chloride 1,000 ML .Q10H 11/09 2199 AC 11/11 IV 0417 Venlafaxine HCl 300 MG AT BEDTIME 11/10 2199 AC 11/10 PO 2151 Venlafaxine HCl 37.5 MG BID 11/09 2202 DC 11/10 PO 0937 Zolpidem Tartrate 2.5 MG AT BEDTIME NEED.. 11/09 2199 AC 11/10 PO 0041 Laboratory Tests 11/11 0650 Hematology CBC w Diff NO MAN DIFF REQ WBC (4.8 - 10.8 /CUMM) 9.3 RBC (4.70 - 6.10 /CUMM) 4.16 L Hgb (14.0 - 18.0 G/DL) 12.0 L Hct (42 - 52 %) 36.2 L MCV (80.0 - 94.0 FL) 87.0 MCH (27.0 - 31.0 PG) 28.8 RDW (11.5 - 14.5 %) 12.9 Plt Count (130 - 400 /CUMM) 545 H MPV (7.4 - 10.4 FL) 7.9 Gran % (42.2 - 75.2 %) 41.0 L Lymphocytes % (20.5 - 51.1 %) 43.9 Monocytes % (1.7 - 9.3 %) 8.9 Eosinophils % (0 - 5 %) 5.6 H Basophils % (0.0 - 2.0 %) 0.6 Absolute Granulocytes (1.4 - 6.5 /CUMM) 3.8 Absolute Lymphocytes (1.2 - 3.4 /CUMM) 4.1 H Absolute Monocytes (0.10 - 0.60 /CUMM) 0.8 H Absolute Eosinophils (0.0 - 0.7 /CUMM) 0.5 Absolute Basophils (0.0 - 0.2 /CUMM) 0.1 PUBS MCHC (33.0 - 37.0 G/DL) 33.1 Vital Signs Date Time Temp Pulse Resp B/P Pulse O2 O2 Flow FiO2 Ox Delivery Rate 11/11 0825 97.6 84 20 140/82 96 Room Air 11/11 0803 96.1 87 18 153/85 11/11 0359 96 Room Air 11/11 0008 98.5 98 20 128/76 96 Room Air 11/10 1555 97.4 75 19 130/88 96
[2016-11-11 15:47] VITALS: BP 104/64
[2016-11-12 00:46] VITALS: BP 112/72
--- NOTE | 2016-11-12 05:51 | PN- Housestaff ---
Subjective Follow-up For: - scrotal pain Subjective: He was comfortable this morning. Stated that there was a decrease in swelling as well as pain. Vitals remained stable. He was afebrile. Discussed with him about the change in antibiotics. Also discussed with him about testing for STD's. Spoke to Dr. Gonzalez this afternoon. Dr. Gonzalez will stop by in the a.m. and discuss the management plan with the patient. Review of Systems Constitutional: Reports: see HPI. Objective Last 24 Hrs of Vital Signs/I&O Vital Signs Date Time Temp Pulse Resp B/P Pulse O2 O2 Flow FiO2 Ox Delivery Rate 11/12 0046 97.7 84 19 112/72 95 Room Air 11/11 1547 97.4 78 19 104/64 96 Room Air 11/11 0825 97.6 84 20 140/82 96 Room Air 11/11 0803 96.1 87 18 153/85 Intake & Output 11/12 0800 11/12 0000 11/11 1600 Intake Total 2800 1600 Output Total Balance 2800 1600 Intake, IV 800 800 Intake, Oral 2000 800 Number 0 Bowel Movements Patient 200 lb Weight Physical Exam General Appearance: No Acute Distress Other Physical Findings: General Exam: AAOx3, No acute distress, Skin: No rashes, no breakdown HEENT: PERRLA, EOMI Neck: Supple, No JVD No cervical lymphadenopathy CVS: Reg Rate, Normal S1,S2, No MGR Resp: Normal air entry, no ronchi/rales Abdomen: Soft, No tenderness, Normal Bowel Sounds, Left scrotal swelling, tenderness. Neuro: Normal Speech, Strength 5/5 b/l x 4 extremities, Sensation intact, CN III -XII NL, Reflexes 2+ Extremities: No cyanosis, pedal edema Current Medications: Current Medications Sig/Delia Start time Last Medication Dose Route Stop Time Status Admin Acetaminophen 650 MG Q6PRN PRN 11/09 2200 AC PO Al Hydroxide/Mg 30 ML Q6P PRN 11/09 2200 AC Hydroxide PO Ampicillin Sodium/ 3,000 MG Q6 11/10 1200 DC 11/11 Sulbactam Sodium IV 1115 Sodium Chloride 100 ML Ceftriaxone Sodium 1,000 MG DAILY 11/11 1139 AC 11/11 IV 1439 Divalproex Sodium 500 MG TID 11/09 2200 AC 11/11 PO 2140 Docusate Sodium 100 MG DAILY 11/10 1000 AC PO Folic Acid 1 MG DAILY 11/10 1000 AC 11/11 PO 0931 Heparin Sodium 5,000 UNIT Q8 11/09 2200 AC 11/09 (Porcine) SC 2244 Hydroxyzine HCl 25 MG AT BEDTIME NEED.. 11/09 2215 AC PO Levofloxacin 500 MG DAILY 11/11 1330 AC 11/11 PO 1439 Mirtazapine 15 MG AT BEDTIME 11/10 2200 AC 11/11 PO 2140 Morphine Sulfate 2 MG Q4P PRN 11/10 1430 AC 11/11 IV 1955 Multivitamins 1 TAB DAILY 11/10 1000 AC 11/11 PO 0931 Nicotine 14 MG DAILY 11/11 1338 AC 11/11 TOP 1439 Omeprazole 20 MG DAILY AC 11/11 0700 AC 11/11 PO 0534 Ondansetron HCl 4 MG Q8P PRN 11/09 2200 AC IV Oxycodone/ 1 TAB Q6P PRN 11/09 2215 AC 11/11 Acetaminophen PO 2331 Patient Medication 1 ED .STK-MED ONE 11/11 1400 MD Teaching ED 11/11 1401 Quetiapine Fumarate 300 MG AT BEDTIME 11/10 2200 AC 11/11 PO 2140 Sodium Chloride 1,000 ML .Q10H 11/09 2200 AC 11/12 IV 0030 Venlafaxine HCl 300 MG AT BEDTIME 11/10 2200 AC 11/11 PO 2140 Zolpidem Tartrate 2.5 MG AT BEDTIME NEED.. 11/09 2200 AC 11/10 PO 0041 Last 24 Hrs of Lab/Dheeraj Results Last 24 Hrs of Labs/Mics: Laboratory Tests 11/11/16 0650: CBC w Diff NO MAN DIFF REQ, RBC 4.16 L, MCV 87.0, MCH 28.8, RDW 12.9, MPV 7.9, Gran % 41.0 L, Lymphocytes % 43.9, Monocytes % 8.9, Eosinophils % 5.6 H, Basophils % 0.6, Absolute Granulocytes 3.8, Absolute Lymphocytes 4.1 H, Absolute Monocytes 0.8 H, Absolute Eosinophils 0.5, Absolute Basophils 0.1, PUBS MCHC 33.1 Microbiology 11/11 1904 URINE ROUT: GC DNA Probe - RECD 11/11 1904 URINE ROUT: Chlamydia DNA Probe (DHEERAJ) - RECD Assessment/Plan Assessment: He is a young man with a past history of bipolar disorder is being evaluated for left scrotal swelling, pain, fever. He was treated with antibiotics, with no resolution of symptoms. Ultrasound of the testes reveals large left-sided hydrocele. Normal vascular flow in the right and left testicle. No evidence of torsion. Differential diagnosis: #1 hydrocele #2 epididymitis #3 orchitis #4 inguinal hernia Below is the problem list and plan: #1 left scrotal swelling-likely because of hydrocele and epididymitis/orchitis. Likely organisms are mostly Klebsiella, chlamydia, neisseria, Escherichia coli. Changed the antibiotics to ceftriaxone and Levaquin. Blood cultures. Chlamydia and gonorrhea PCR-negative. Results from VDRL, RPR, HIV, hepatitis pending. Continue to monitor for leukocytosis and fever. #2 pain management-Percocet. Consider reevaluation of pain medications, as per urology. #4 mental health-history of bipolar disorder. Consult psychiatry, for titrating the diagnosis of medications. #5 DVT prophylaxis-heparin. Problem List: 1. Epididymitis 2. Marijuana abuse Pain Ratin Pain Location: left scrotum Pain Goal: Pain 4 or less Pain Plan: Tylenol when necessary Tomorrow's Labs & Rationales: CBC, BEP- to check for leukocytosis and renal function. DVT/Prophylaxis: pharmacological
[2016-11-12 07:57] VITALS: BP 160/95
--- NOTE | 2016-11-12 09:47 | PN- Att Addend ---
Attending Addendum Attending Brief Note Patient complains of improvement in pain but has persistent swelling General Appearance: Alert, No Acute Distress Skin: Grossly normal HEENT: PEERLA Neck: Supple, No JVD Cardiovascular: Regular Rate, Normal S1, Normal S2, No Murmurs Lungs: Clear to Auscultation, Normal Air Movement Abdomen: Left scrotal swelling, redness and tenderness Neurological: Normal Speech, Strength at 5/5 X4 Ext, Cranial Nerves 3-12 NL, Reflexes 2+ Extremities: No Clubbing, No Cyanosis, No Edema Vascular: Normal Pulses Assessment 46-year-old with history of bipolar disorder and chronic back pain presenting with left scrotal pain and swelling that is on and off for last few weeks. He was seen at our office and was started on oral antibiotics with failure. He now presents with severe pain associated with chills and rigors. He has acute epididymitis/orchitis. chlamydia and gonorrhea urine antigen test is pending. Provided his high risk we will continue broad-spectrum coverage and also get a neurology reevaluation. Plan Get urology to reevaluate. IV ceftriaxone and levofloxacin 500 mg once daily chlamydia and gonorrhea urine antigen Check STD panel, including HIV, syphilis and hepatitis panel Continue other home meds DVT prophylaxis Current Medications Sig/Delia Start time Last Medication Dose Route Stop Time Status Admin Acetaminophen 650 MG Q6PRN PRN 11/09 2200 AC PO Al Hydroxide/Mg 30 ML Q6P PRN 11/09 2200 AC Hydroxide PO Ampicillin Sodium/ 3,000 MG Q6 11/10 1200 DC 11/11 Sulbactam Sodium IV 1115 Sodium Chloride 100 ML Ceftriaxone Sodium 1,000 MG DAILY 11/11 1139 AC 11/12 IV 0819 Divalproex Sodium 500 MG TID 11/09 2200 AC 11/12 PO 0819 Docusate Sodium 100 MG DAILY 11/10 1000 AC 11/12 PO 0819 Folic Acid 1 MG DAILY 11/10 1000 AC 11/12 PO 0819 Heparin Sodium 5,000 UNIT Q8 11/09 220 AC 11/09 (Porcine) SC 2244 Hydroxyzine HCl 25 MG AT BEDTIME NEED.. 11/09 2215 AC PO Levofloxacin 500 MG DAILY 11/11 1330 AC 11/12 PO 0819 Mirtazapine 15 MG AT BEDTIME 11/10 2200 AC 11/11 PO 2140 Morphine Sulfate 2 MG Q4P PRN 11/10 1430 AC 11/11 IV 1955 Multivitamins 1 TAB DAILY 11/10 1000 AC 11/12 PO 0819 Nicotine 14 MG DAILY 11/11 1338 AC 11/12 TOP 0819 Omeprazole 20 MG DAILY AC 11/11 0700 AC 11/12 PO 0638 Ondansetron HCl 4 MG Q8P PRN 11/09 2200 AC IV Oxycodone/ 1 TAB Q6P PRN 11/09 2215 AC 11/12 Acetaminophen PO 0630 Patient Medication 1 ED .STK-MED ONE 11/11 1400 ND Teaching ED 11/11 1401 Quetiapine Fumarate 300 MG AT BEDTIME 11/10 2199 11/11 PO 2140 Sodium Chloride 1,000 ML .Q10H 11/09 2200 DC 11/12 IV 0030 Venlafaxine HCl 300 MG AT BEDTIME 11/10 220 11/11 PO 2140 Zolpidem Tartrate 2.5 MG AT BEDTIME NEED.. 11/09 2199 11/10 PO 0041 Vital Signs Date Time Temp Pulse Resp B/P Pulse O2 O2 Flow FiO2 Ox Delivery Rate 11/12 0757 97.5 58 20 160/95 94 Room Air 11/12 0046 97.7 84 19 112/72 95 Room Air 11/11 1547 97.4 78 19 104/64 96 Room Air
[2016-11-12 14:18] VITALS: BP 126/78
[2016-11-12 16:08] VITALS: BP 140/80
[2016-11-12 17:45] LABS: ABSOLUTE BASOPHIL COUNT 0.1 /CUMM (0.0-0.2); ABSOLUTE EOSINOPHIL COUNT 0.5 /CUMM (0.0-0.7); ABSOLUTE MONOCYTE COUNT 0.7 /CUMM (0.10-0.60); BASOPHIL % 0.7 % (0.0-2.0); EOSINOPHIL % 5.9 % (0-5); GRANULOCYTE % 48.5 % (42.2-75.2); MEAN CORPUSCULAR HGB 28.9 PG (27.0-31.0); MEAN CORPUSCULAR HGB CONC 33.3 G/DL (33.0-37.0); MEAN CORPUSCULAR VOLUME 86.9 FL (80.0-94.0); MEAN PLATELET VOLUME 7.9 FL (7.4-10.4); PLATELET COUNT 579 /CUMM (130-400); RBC DISTRIBUTION WIDTH 13.2 % (11.5-14.5); RED BLOOD CELL CT 4.03 /CUMM (4.70-6.10); WHITE BLOOD CELL COUNT 8.2 /CUMM (4.8-10.8)
[2016-11-13] VITALS: BP 136/84
--- NOTE | 2016-11-13 07:20 | PN- Housestaff ---
Subjective Follow-up For: -Acute epididymoorchitis -hydrocele Subjective: Pt feels about the same. Still has pain. Remained afebrile. Complained of sore throat, which has not improved compared to yesterday. No abdominal pain. Review of Systems Constitutional: Reports: see HPI. Objective Last 24 Hrs of Vital Signs/I&O Vital Signs Date Time Temp Pulse Resp B/P Pulse O2 O2 Flow FiO2 Ox Delivery Rate 11/13 0000 97.8 81 18 136/84 99 11/12 1608 98.1 88 20 140/80 99 11/12 1418 97.7 98 20 126/78 97 Room Air 11/12 0757 97.5 58 20 160/95 94 Room Air Intake & Output 11/13 0800 11/13 0000 11/12 1600 Intake Total 800 1000 Output Total Balance 800 1000 Intake, IV 100 Intake, Oral 800 900 Number 0 Bowel Movements Physical Exam General Appearance: No Acute Distress Other Physical Findings: General Exam: AAOx3, No acute distress, Skin: No rashes, no breakdown HEENT: PERRLA, EOMI, erythema and exudates on the posterior pharyngeal wall. Neck: Supple, No JVD No cervical lymphadenopathy CVS: Reg Rate, Normal S1,S2, No MGR Resp: Normal air entry, no ronchi/rales Abdomen: Soft, No tenderness, Normal Bowel Sounds, scrotal tenderness and erythema. Neuro: Normal Speech, Strength 5/5 b/l x 4 extremities, Sensation intact, CN III -XII NL, Reflexes 2+ Extremities: No cyanosis, pedal edema Current Medications: Current Medications Sig/Delia Start time Last Medication Dose Route Stop Time Status Admin Acetaminophen 650 MG Q6PRN PRN 11/09 2199 AC PO Al Hydroxide/Mg 30 ML Q6P PRN 11/09 2199 AC Hydroxide PO Benzocaine/Menthol 1 TANO BID PRN 11/12 1800 AC PO Ceftriaxone Sodium 1,000 MG DAILY 11/11 1139 AC 11/12 IV 0819 Divalproex Sodium 500 MG TID 11/09 2199 AC 11/12 PO 2143 Docusate Sodium 100 MG DAILY 11/10 1000 AC 11/12 PO 0819 Folic Acid 1 MG DAILY 11/10 1000 AC 11/12 PO 0819 Heparin Sodium 5,000 UNIT Q8 11/09 2199 AC 11/09 (Porcine) SC 2244 Hydroxyzine HCl 25 MG AT BEDTIME NEED.. 11/09 2215 AC PO Levofloxacin 500 MG DAILY 11/11 1330 AC 11/12 PO 0819 Mirtazapine 15 MG AT BEDTIME 11/10 2200 AC 11/12 PO 2144 Morphine Sulfate 2 MG Q4P PRN 11/10 1430 AC 11/13 IV 0528 Multivitamins 1 TAB DAILY 11/10 1000 AC 11/12 PO 0819 Nicotine 14 MG DAILY 11/11 1338 AC 11/12 TOP 0819 Omeprazole 20 MG DAILY AC 11/11 0700 AC 11/13 PO 0528 Ondansetron HCl 4 MG Q8P PRN 11/09 2200 AC IV Oxycodone/ 1 TAB Q6P PRN 11/09 2215 AC 11/12 Acetaminophen PO 1856 Quetiapine Fumarate 300 MG AT BEDTIME 11/10 2200 AC 11/12 PO 2143 Sodium Chloride 1,000 ML .Q10H 11/09 2200 DC 11/12 IV 0030 Venlafaxine HCl 300 MG AT BEDTIME 11/10 2200 AC 11/12 PO 2143 Zolpidem Tartrate 2.5 MG AT BEDTIME NEED.. 11/09 2200 AC 11/10 PO 0041 Last 24 Hrs of Lab/Dheeraj Results Last 24 Hrs of Labs/Mics: Laboratory Tests 11/13/16 0610: CBC w Diff Pending, WBC Pending, RBC Pending, Hgb Pending, Hct Pending, MCV Pending, MCH Pending, RDW Pending, Plt Count Pending, MPV Pending, PUBS MCHC Pending 11/12/16 1641: RPR Titer/FTA Pending 11/12/16 1641: CBC w Diff NO MAN DIFF REQ, RBC 4.03 L, MCV 86.9, MCH 28.9, RDW 13.2, MPV 7.9, Gran % 48.5, Lymphocytes % 37.0, Monocytes % 7.9, Eosinophils % 5.9 H, Basophils % 0.7, Absolute Granulocytes 4.0, Absolute Lymphocytes 3.0, Absolute Monocytes 0.7 H, Absolute Eosinophils 0.5, Absolute Basophils 0.1, PUBS MCHC 33.3, Hepatitis A IgM Ab Pending, Hep Bs Antigen Pending, Hep B Core IgM Ab Conf Pending, Hepatitis C Antibody Pending, HIV 1&2 Ab Western Blot NONREACTIVE Microbiology 11/12 1700 NASOPHARYN: Influenza Virus A & B Rapid Smear - COMP Assessment/Plan Assessment: He is a young man with a past history of bipolar disorder is being evaluated for left scrotal swelling, pain, fever. He was treated with antibiotics, with no resolution of symptoms. Ultrasound of the testes reveals large left-sided hydrocele. Normal vascular flow in the right and left testicle. No evidence of torsion. Differential diagnosis: #1 hydrocele #2 epididymitis #3 orchitis #4 inguinal hernia Below is the problem list and plan: #1 left scrotal swelling-likely because of hydrocele and epididymitis/orchitis. Likely organisms are mostly Klebsiella, chlamydia, neisseria, Escherichia coli. Blood cultures have been negative so far. Chlamydia and gonorrhea PCR-negative. RPR, HIV, hepatitis are negative. Continue to monitor for leukocytosis and fever. Restarted unasyn. Aspiration of hydrocele, if inflammation is resolved. #2 pain management-Percocet. #4 mental health-history of bipolar disorder. Consult psychiatry, for titrating the diagnosis of medications. #5 Sore throat- chlorseptic lozenges. Meets Centor's criteria. Strep throat- pending results. #5 DVT prophylaxis-heparin. Problem List: 1. Marijuana abuse 2. Epididymitis 3. Benzodiazepine abuse Pain Ratin Pain Location: scrotal Pain Goal: Pain 4 or less Pain Plan: percocet Tomorrow's Labs & Rationales: no labs necessary. pt stable.
[2016-11-13 07:47] LABS: ABSOLUTE BASOPHIL COUNT 0 /CUMM (0.0-0.2); ABSOLUTE EOSINOPHIL COUNT 0.5 /CUMM (0.0-0.7); ABSOLUTE GRANULOCYTE CT 3.7 /CUMM (1.4-6.5); ABSOLUTE LYMPH COUNT 2.9 /CUMM (1.2-3.4); ABSOLUTE MONOCYTE COUNT 0.5 /CUMM (0.10-0.60); BASOPHIL % 0.3 % (0.0-2.0); EOSINOPHIL % 6.2 % (0-5); GRANULOCYTE % 48.9 % (42.2-75.2); HEMATOCRIT 34.7 % (42-52); MEAN CORPUSCULAR HGB CONC 33.7 G/DL (33.0-37.0); MEAN CORPUSCULAR VOLUME 86.1 FL (80.0-94.0); MEAN PLATELET VOLUME 7.8 FL (7.4-10.4); PLATELET COUNT 603 /CUMM (130-400); RBC DISTRIBUTION WIDTH 13.4 % (11.5-14.5); RED BLOOD CELL CT 4.03 /CUMM (4.70-6.10); WHITE BLOOD CELL COUNT 7.6 /CUMM (4.8-10.8)
[2016-11-13 08:44] VITALS: BP 148/90
--- NOTE | 2016-11-13 09:39 | PN- Att Addend ---
Attending Addendum Attending Brief Note Patient complains of persisting pain and swelling. He complains of sore throat. General Appearance: Alert, No Acute Distress Skin: Grossly normal HEENT: PEERLA Neck: Supple, No JVD Cardiovascular: Regular Rate, Normal S1, Normal S2, No Murmurs Lungs: Clear to Auscultation, Normal Air Movement Abdomen: Left scrotal swelling, redness and tenderness Neurological: Normal Speech, Strength at 5/5 X4 Ext, Cranial Nerves 3-12 NL, Reflexes 2+ Extremities: No Clubbing, No Cyanosis, No Edema Vascular: Normal Pulses Assessment 46-year-old with history of bipolar disorder and chronic back pain presenting with left scrotal pain and swelling that is on and off for last few weeks. He was seen at our office and was started on oral antibiotics with failure. He now presents with severe pain associated with chills and rigors. He has acute epididymitis/orchitis. chlamydia and gonorrhea urine antigen test is negative. We will change coverage to cover enteric bacteria. Possible aspiration when infection well-controlled. Patient possibly has oropharyngeal danilo. Plan Discontinue current antibiotics and restart Unasyn Nystatin swish and swallow Continue other home meds DVT prophylaxis Current Medications Sig/Delia Start time Last Medication Dose Route Stop Time Status Admin Acetaminophen 650 MG Q6PRN PRN 11/09 2200 AC PO Al Hydroxide/Mg 30 ML Q6P PRN 11/09 2200 AC Hydroxide PO Benzocaine/Menthol 1 TANO BID PRN 11/12 1800 AC PO Ceftriaxone Sodium 1,000 MG DAILY 11/11 1139 AC 11/13 IV 0807 Divalproex Sodium 500 MG TID 11/09 2200 AC 11/13 PO 0808 Docusate Sodium 100 MG DAILY 11/10 1000 AC 11/13 PO 0808 Folic Acid 1 MG DAILY 11/10 1000 AC 11/13 PO 0808 Heparin Sodium 5,000 UNIT Q8 11/09 2200 AC 11/09 (Porcine) SC 2244 Hydroxyzine HCl 25 MG AT BEDTIME NEED.. 11/09 2215 AC PO Levofloxacin 500 MG DAILY 11/11 1330 AC 11/13 PO 0808 Mirtazapine 15 MG AT BEDTIME 11/10 2200 AC 11/12 PO 2144 Morphine Sulfate 2 MG Q4P PRN 11/10 1430 AC 11/13 IV 0528 Multivitamins 1 TAB DAILY 11/10 1000 AC 11/13 PO 0808 Nicotine 14 MG DAILY 11/11 1338 AC 11/13 TOP 0807 Nystatin 5 ML 4 TIMES/DAY 11/13 1000 AC PO 11/14 220 Omeprazole 20 MG DAILY AC 11/11 0700 AC 11/13 PO 0528 Ondansetron HCl 4 MG Q8P PRN 11/09 2200 AC IV Oxycodone/ 1 TAB Q6P PRN 11/09 221 AC 11/13 Acetaminophen PO 08 Quetiapine Fumarate 300 MG AT BEDTIME 11/10 2199 AC 11/12 PO 214 Venlafaxine HCl 300 MG AT BEDTIME 11/10 2199 AC 11/12 PO 214 Zolpidem Tartrate 2.5 MG AT BEDTIME NEED.. 11/09 2199 AC 11/10 PO 0041 Laboratory Tests 11/13 11/12 0610 1641 Hematology CBC w Diff NO MAN DIFF REQ WBC (4.8 - 10.8 /CUMM) 7.6 RBC (4.70 - 6.10 /CUMM) 4.03 L Hgb (14.0 - 18.0 G/DL) 11.7 L Hct (42 - 52 %) 34.7 L MCV (80.0 - 94.0 FL) 86.1 MCH (27.0 - 31.0 PG) 29.0 RDW (11.5 - 14.5 %) 13.4 Plt Count (130 - 400 /CUMM) 603 H MPV (7.4 - 10.4 FL) 7.8 Gran % (42.2 - 75.2 %) 48.9 Lymphocytes % (20.5 - 51.1 %) 37.6 Monocytes % (1.7 - 9.3 %) 7.0 Eosinophils % (0 - 5 %) 6.2 H Basophils % (0.0 - 2.0 %) 0.3 Absolute Granulocytes (1.4 - 6.5 /CUMM) 3.7 Absolute Lymphocytes (1.2 - 3.4 /CUMM) 2.9 Absolute Monocytes (0.10 - 0.60 /CUMM) 0.5 Absolute Eosinophils (0.0 - 0.7 /CUMM) 0.5 Absolute Basophils (0.0 - 0.2 /CUMM) 0 PUBS MCHC (33.0 - 37.0 G/DL) 33.7 Serology RPR Titer/FTA (NONREACTIVE) NONREACTIVE 11/12 1641 Hematology CBC w Diff NO MAN DIFF REQ WBC (4.8 - 10.8 /CUMM) 8.2 RBC (4.70 - 6.10 /CUMM) 4.03 L Hgb (14.0 - 18.0 G/DL) 11.7 L Hct (42 - 52 %) 35.0 L MCV (80.0 - 94.0 FL) 86.9 MCH (27.0 - 31.0 PG) 28.9 RDW (11.5 - 14.5 %) 13.2 Plt Count (130 - 400 /CUMM) 579 H MPV (7.4 - 10.4 FL) 7.9 Gran % (42.2 - 75.2 %) 48.5 Lymphocytes % (20.5 - 51.1 %) 37.0 Monocytes % (1.7 - 9.3 %) 7.9 Eosinophils % (0 - 5 %) 5.9 H Basophils % (0.0 - 2.0 %) 0.7 Absolute Granulocytes (1.4 - 6.5 /CUMM) 4.0 Absolute Lymphocytes (1.2 - 3.4 /CUMM) 3.0 Absolute Monocytes (0.10 - 0.60 /CUMM) 0.7 H Absolute Eosinophils (0.0 - 0.7 /CUMM) 0.5 Absolute Basophils (0.0 - 0.2 /CUMM) 0.1 PUBS MCHC (33.0 - 37.0 G/DL) 33.3 Serology Hepatitis A IgM Ab (NONREACTIVE) Pending Hep Bs Antigen (NONREACTIVE) Pending Hep B Core IgM Ab Conf (NONREACTIVE) Pending Hepatitis C Antibody (NONREACTIVE) Pending HIV 1&2 Ab Western Blot (NONREACTIVE) NONREACTIVE Vital Signs Date Time Temp Pulse Resp B/P Pulse O2 O2 Flow FiO2 Ox Delivery Rate 11/13 0844 97.8 79 20 148/90 96 11/13 0000 97.8 81 18 136/84 99 11/12 1608 98.1 88 20 140/80 99 11/12 1418 97.7 98 20 126/78 97 Room Air
[2016-11-13 16:10] VITALS: BP 144/88
[2016-11-14 00:13] VITALS: BP 128/96
--- NOTE | 2016-11-14 06:02 | PN- Housestaff ---
Subjective Follow-up For: - scrotal pain Subjective: Patient comfortable this morning. Did not have any complaints. Pain adequately controlled with current regimen. Vitals remained stable overnight. He remained afebrile overnight. Review of Systems Constitutional: Reports: see HPI. Objective Last 24 Hrs of Vital Signs/I&O Vital Signs Date Time Temp Pulse Resp B/P Pulse O2 O2 Flow FiO2 Ox Delivery Rate 11/14 0013 97.5 93 18 128/96 92 Room Air 11/13 1610 98.2 90 20 144/88 94 11/13 0844 97.8 79 20 148/90 96 Intake & Output 11/14 0800 11/14 0000 11/13 1600 Intake Total 930 1000 Output Total Balance 930 1000 Intake, IV 130 100 Intake, Oral 800 900 Number 0 Bowel Movements Physical Exam General Appearance: No Acute Distress Other Physical Findings: General Exam: AAOx3, No acute distress, Skin: No rashes, no breakdown HEENT: PERRLA, EOMI Neck: Supple, No JVD No cervical lymphadenopathy CVS: Reg Rate, Normal S1,S2, No MGR Resp: Normal air entry, no ronchi/rales Abdomen: Soft, No tenderness, Normal Bowel Sounds, left scrotal swelling and erythema (decreased compared to yesterday). Neuro: Normal Speech, Strength 5/5 b/l x 4 extremities, Sensation intact, CN III -XII NL, Reflexes 2+ Extremities: No cyanosis, pedal edema Current Medications: Current Medications Sig/Delia Start time Last Medication Dose Route Stop Time Status Admin Acetaminophen 650 MG Q6PRN PRN 11/09 2200 AC PO Al Hydroxide/Mg 30 ML Q6P PRN 11/09 220 AC Hydroxide PO Ampicillin Sodium/ 3,000 MG Q6 11/13 1800 AC 11/13 Sulbactam Sodium IV 2351 Sodium Chloride 100 ML Benzocaine/Menthol 1 TANO BID PRN 11/12 1800 AC PO Ceftriaxone Sodium 1,000 MG DAILY 11/11 1139 DC 11/13 IV 0807 Divalproex Sodium 500 MG TID 11/09 2200 AC 11/13 PO 2200 Docusate Sodium 100 MG DAILY 11/10 1000 AC 11/13 PO 0808 Folic Acid 1 MG DAILY 11/10 1000 AC 11/13 PO 0808 Heparin Sodium 5,000 UNIT Q8 11/09 2199 AC 11/09 (Porcine) SC 2244 Hydroxyzine HCl 25 MG AT BEDTIME NEED.. 11/09 2215 AC PO Levofloxacin 500 MG DAILY 11/11 1330 DC 11/13 PO 0808 Mirtazapine 15 MG AT BEDTIME 11/10 2200 AC 11/13 PO 2159 Morphine Sulfate 2 MG Q4P PRN 11/10 1430 AC 11/13 IV 2201 Multivitamins 1 TAB DAILY 11/10 1000 AC 11/13 PO 0808 Nicotine 14 MG DAILY 11/11 1338 AC 11/13 TOP 0807 Nystatin 5 ML 4 TIMES/DAY 11/13 1000 AC 11/13 PO 11/14 220 2159 Omeprazole 20 MG DAILY AC 11/11 0700 AC 11/13 PO 0528 Ondansetron HCl 4 MG Q8P PRN 11/09 2200 AC IV Oxycodone/ 1 TAB Q6P PRN 11/09 2215 AC 11/13 Acetaminophen PO 2351 Quetiapine Fumarate 300 MG AT BEDTIME 11/10 2200 AC 11/13 PO 2159 Venlafaxine HCl 300 MG AT BEDTIME 11/10 2200 AC 11/13 PO 2200 Zolpidem Tartrate 2.5 MG AT BEDTIME NEED.. 11/09 220 AC 11/10 PO 0041 Last 24 Hrs of Lab/Dheeraj Results Last 24 Hrs of Labs/Mics: Laboratory Tests 11/13/16 0610: CBC w Diff NO MAN DIFF REQ, RBC 4.03 L, MCV 86.1, MCH 29.0, RDW 13.4, MPV 7.8, Gran % 48.9, Lymphocytes % 37.6, Monocytes % 7.0, Eosinophils % 6.2 H, Basophils % 0.3, Absolute Granulocytes 3.7, Absolute Lymphocytes 2.9, Absolute Monocytes 0.5, Absolute Eosinophils 0.5, Absolute Basophils 0, PUBS MCHC 33.7 Assessment/Plan Assessment: He is a young man with a past history of bipolar disorder is being evaluated for left scrotal swelling, pain, fever. He was treated with antibiotics, with no resolution of symptoms. Ultrasound of the testes reveals large left-sided hydrocele. Normal vascular flow in the right and left testicle. No evidence of torsion. Differential diagnosis: #1 hydrocele #2 epididymitis #3 orchitis #4 inguinal hernia Below is the problem list and plan: #1 left scrotal swelling-likely because of hydrocele and epididymitis/orchitis. Likely organisms are mostly Klebsiella, chlamydia, neisseria, Escherichia coli. Blood cultures have been negative so far. Chlamydia and gonorrhea PCR-negative. RPR, HIV, hepatitis are negative. Continue to monitor for leukocytosis and fever. Restarted unasyn. Aspiration of hydrocele, if inflammation is resolved. #2 pain IV morphine #4 mental health-history of bipolar disorder. Consult psychiatry, for titrating the diagnosis of medications. #5 Sore throat- chlorseptic lozenges. Meets Centor's criteria. Strep throat- pending results. #5 DVT prophylaxis-heparin. Problem List: 1. Epididymitis 2. Marijuana abuse Pain Ratin Pain Location: left scrotum Pain Goal: Pain 4 or less Pain Plan: percocet tylenol Tomorrow's Labs & Rationales: no labs necessary. pt stable.
[2016-11-14 08:44] VITALS: BP 110/53
--- NOTE | 2016-11-14 12:06 | PN- Pulmonary ---
Subjective HPI/Critical Care Issues: Deep asleep when I saw him and attempted to wake pt up but he was in deep sleep No sig events noted Objective Current Medications: Current Medications Sig/Delia Start time Last Medication Dose Route Stop Time Status Admin Acetaminophen 650 MG Q6PRN PRN 11/09 2200 AC PO Al Hydroxide/Mg 30 ML Q6P PRN 11/09 2200 AC Hydroxide PO Ampicillin Sodium/ 3,000 MG Q6 11/13 1800 AC 11/14 Sulbactam Sodium IV 0600 Sodium Chloride 100 ML Benzocaine/Menthol 1 TANO BID PRN 11/12 1800 AC PO Ceftriaxone Sodium 1,000 MG DAILY 11/11 1139 DC 11/13 IV 0807 Divalproex Sodium 500 MG TID 11/09 2200 AC 11/14 PO 0906 Docusate Sodium 100 MG DAILY 11/10 1000 AC 11/14 PO 0906 Folic Acid 1 MG DAILY 11/10 1000 AC 11/14 PO 0908 Heparin Sodium 5,000 UNIT Q8 11/09 2200 AC 11/09 (Porcine) SC 2244 Hydroxyzine HCl 25 MG AT BEDTIME NEED.. 11/09 2215 AC PO Levofloxacin 500 MG DAILY 11/11 1330 DC 11/13 PO 0808 Mirtazapine 15 MG AT BEDTIME 11/10 2200 AC 11/13 PO 2159 Morphine Sulfate 2 MG Q4P PRN 11/10 1430 AC 11/14 IV 0909 Multivitamins 1 TAB DAILY 11/10 1000 AC 11/14 PO 0906 Nicotine 14 MG DAILY 11/11 1338 AC 11/14 TOP 0905 Nystatin 5 ML 4 TIMES/DAY 11/13 1000 AC 11/14 PO 11/14 2201 0906 Omeprazole 20 MG DAILY AC 11/11 0700 AC 11/13 PO 0528 Ondansetron HCl 4 MG Q8P PRN 11/09 2200 AC IV Oxycodone/ 1 TAB Q6P PRN 11/09 2215 AC 11/14 Acetaminophen PO 0605 Polyethylene Glycol 17 GM DAILY PRN 11/14 0630 AC PO Quetiapine Fumarate 300 MG AT BEDTIME 11/10 2200 AC 11/13 PO 2159 Senna 187 MG AT BEDTIME PRN 11/14 0630 AC PO Venlafaxine HCl 300 MG AT BEDTIME 11/10 2200 AC 11/13 PO 2200 Zolpidem Tartrate 2.5 MG AT BEDTIME NEED.. 11/09 2200 AC 11/10 PO 0041 Vital Signs & I&O Last 24 Hrs of Vitals and I&O: Vital Signs Date Time Temp Pulse Resp B/P Pulse O2 O2 Flow FiO2 Ox Delivery Rate 11/14 0844 97.6 86 18 110/53 92 Room Air 11/14 0013 97.5 93 18 128/96 92 Room Air 11/13 1610 98.2 90 20 144/88 94 Intake & Output 11/14 1600 11/14 0800 11/14 0000 Intake Total 200 930 Output Total 150 Balance 50 930 Intake, IV 200 130 Intake, Oral 800 Output, Urine 150 Impression/Plan Impression/Plan Impression/Plan: 46-year-old with history of bipolar disorder and chronic back pain presenting with left scrotal pain and swelling that is on and off for last few weeks. He was seen at our office and was started on oral antibiotics with failure. He now presents with severe pain associated with chills and rigors. He has acute epididymitis/orchitis. chlamydia and gonorrhea urine antigen test is negative. We will change coverage to cover enteric bacteria. Possible aspiration when infection well-controlled. Patient possibly has oropharyngeal danilo. Plan Unasyn Nystatin swish and swallow Continue other home meds DVT prophylaxis Uro on board
[2016-11-14 15:51] VITALS: BP 137/64
[2016-11-15 00:04] VITALS: BP 145/101
--- NOTE | 2016-11-15 07:29 | PN- Housestaff ---
Subjective Follow-up For: Left scrotal swelling Subjective: Patient comfortable this morning. Pain decreased compared to yesterday. Still complains of sore throat. Vitals remained stable overnight. MAXIMUM TEMPERATURE 98.1, oxygen saturation in the range of 90-97% on room air. Review of Systems Constitutional: Reports: see HPI. Objective Last 24 Hrs of Vital Signs/I&O Vital Signs Date Time Temp Pulse Resp B/P Pulse O2 O2 Flow FiO2 Ox Delivery Rate 11/15 0004 97.6 83 18 145/101 97 Room Air 11/14 1551 97.4 81 20 137/64 91 11/14 0844 97.6 86 18 110/53 92 Room Air Intake & Output 11/15 0800 11/15 0000 11/14 1600 Intake Total 650 600 Output Total Balance 650 600 Intake, IV 120 Intake, Oral 650 480 Physical Exam General Appearance: No Acute Distress Other Physical Findings: General Exam: AAOx3, No acute distress, Skin: No rashes, no breakdown HEENT: PERRLA, EOMI, erythema posterior pharyngeal wall Neck: Supple, No JVD No cervical lymphadenopathy CVS: Reg Rate, Normal S1,S2, No MGR Resp: Normal air entry, no ronchi/rales Abdomen: Soft, No tenderness, Normal Bowel Sounds, left scrotal tenderness, erythema decreased compared to yesterday. Neuro: Normal Speech, Strength 5/5 b/l x 4 extremities, Sensation intact, CN III -XII NL, Reflexes 2+ Extremities: No cyanosis, pedal edema Current Medications: Current Medications Sig/Delia Start time Last Medication Dose Route Stop Time Status Admin Acetaminophen 650 MG Q6PRN PRN 11/09 2199 AC PO Al Hydroxide/Mg 30 ML Q6P PRN 11/09 2199 AC Hydroxide PO Ampicillin Sodium/ 3,000 MG Q6 11/13 1800 AC 11/15 Sulbactam Sodium IV 0624 Sodium Chloride 100 ML Benzocaine/Menthol 1 TANO BID PRN 11/12 1800 AC PO Divalproex Sodium 500 MG TID 11/09 2199 AC 11/14 PO 2211 Docusate Sodium 100 MG DAILY 11/10 1000 AC 11/14 PO 0906 Folic Acid 1 MG DAILY 11/10 1000 AC 11/14 PO 0908 Heparin Sodium 5,000 UNIT Q8 11/09 2199 AC 11/09 (Porcine) SC 2244 Hydroxyzine HCl 25 MG AT BEDTIME NEED.. 11/09 2214 AC PO Mirtazapine 15 MG AT BEDTIME 11/10 2200 AC 11/14 PO 2211 Morphine Sulfate 2 MG Q4P PRN 11/10 1430 AC 11/15 IV 0641 Multivitamins 1 TAB DAILY 11/10 1000 AC 11/14 PO 0906 Nicotine 14 MG DAILY 11/11 1338 AC 11/14 TOP 0905 Nystatin 5 ML 4 TIMES/DAY 11/13 1000 DC 11/14 PO 11/14 220 221 Omeprazole 20 MG DAILY AC 11/11 0700 AC 11/15 PO 0625 Ondansetron HCl 4 MG Q8P PRN 11/09 2200 AC IV Oxycodone/ 1 TAB Q6P PRN 11/09 2215 AC 11/14 Acetaminophen PO 0605 Polyethylene Glycol 17 GM DAILY PRN 11/14 0630 AC PO Quetiapine Fumarate 300 MG AT BEDTIME 11/10 2200 AC 11/14 PO 2209 Senna 187 MG AT BEDTIME PRN 11/14 0630 AC PO Venlafaxine HCl 300 MG AT BEDTIME 11/10 2200 AC 11/14 PO 2209 Zolpidem Tartrate 2.5 MG AT BEDTIME NEED.. 11/09 220 AC 11/10 PO 0041 Assessment/Plan Assessment: He is a young man with a past history of bipolar disorder is being evaluated for left scrotal swelling, pain, fever. He was treated with antibiotics, with no resolution of symptoms. Ultrasound of the testes reveals large left-sided hydrocele. Normal vascular flow in the right and left testicle. No evidence of torsion. Differential diagnosis: #1 hydrocele #2 epididymitis #3 orchitis #4 inguinal hernia Below is the problem list and plan: #1 left scrotal swelling-likely because of hydrocele and epididymitis/orchitis. Blood cultures have been negative so far. Chlamydia and gonorrhea PCR-negative. RPR, HIV, hepatitis are negative. Continue to monitor for leukocytosis and fever. Restarted unasyn. Aspiration of hydrocele, if inflammation is resolved. #2 pain IV morphine, frequency of which has been decreased. Continue Percocet. #4 mental health-history of bipolar disorder. Currently on Effexor, Seroquel, Depakote, Ambien and Remeron. Possible psychiatric evaluation at the time of discharge. #5 Sore throat- chlorseptic lozenges. Meets Centor's criteria. Strep throat- pending results. #5 DVT prophylaxis-heparin. Problem List: 1. Epididymitis Pain Ratin Pain Location: Left scrotum Pain Goal: Pain 4 or less Pain Plan: Morphine every 6 when necessary Percocet every 6 when necessary Tomorrow's Labs & Rationales: No labs necessary.. Patient stable
[2016-11-15 08:04] VITALS: BP 118/78
--- NOTE | 2016-11-15 11:11 | PN- Pulmonary ---
Subjective HPI/Critical Care Issues: Patient comfortable this morning. Pain decreased compared to yesterday. Still complains of sore throat. Vitals remained stable overnight. MAXIMUM TEMPERATURE 98.1, oxygen saturation in the range of 90-97% on room air. Review of Systems Constitutional: Reports: see HPI. Objective Current Medications: Current Medications Sig/Delia Start time Last Medication Dose Route Stop Time Status Admin Acetaminophen 650 MG Q6PRN PRN 11/09 220 AC PO Al Hydroxide/Mg 30 ML Q6P PRN 11/09 220 AC Hydroxide PO Ampicillin Sodium/ 3,000 MG Q6 11/13 1800 AC 11/15 Sulbactam Sodium IV 0624 Sodium Chloride 100 ML Benzocaine/Menthol 1 TANO BID PRN 11/12 1800 AC PO Divalproex Sodium 500 MG TID 11/09 2200 AC 11/15 PO 0807 Docusate Sodium 100 MG DAILY 11/10 1000 AC 11/15 PO 0807 Folic Acid 1 MG DAILY 11/10 1000 AC 11/15 PO 0807 Heparin Sodium 5,000 UNIT Q8 11/09 2200 AC 11/09 (Porcine) SC 2244 Hydroxyzine HCl 25 MG AT BEDTIME NEED.. 11/09 2214 AC PO Mirtazapine 15 MG AT BEDTIME 11/10 2200 AC 11/14 PO 2211 Morphine Sulfate 2 MG Q6-PRN PRN 11/15 1045 AC 11/15 IV 1032 Morphine Sulfate 2 MG Q4P PRN 11/10 1430 DC 11/15 IV 0641 Multivitamins 1 TAB DAILY 11/10 1000 AC 11/15 PO 0807 Nicotine 14 MG DAILY 11/11 1338 AC 11/15 TOP 0807 Nystatin 5 ML 4 TIMES/DAY 11/15 1400 AC PO 11/15 2201 Nystatin 5 ML 4 TIMES/DAY 11/13 1000 DC 11/14 PO 11/14 2201 2216 Omeprazole 20 MG DAILY AC 11/11 0700 AC 11/15 PO 0625 Ondansetron HCl 4 MG Q8P PRN 11/09 2200 AC IV Oxycodone/ 1 TAB Q6P PRN 11/09 2215 AC 11/15 Acetaminophen PO 0807 Polyethylene Glycol 17 GM DAILY PRN 11/14 0630 AC PO Quetiapine Fumarate 300 MG AT BEDTIME 11/10 2200 AC 11/14 PO 2209 Senna 187 MG AT BEDTIME PRN 11/14 0630 AC PO Venlafaxine HCl 300 MG AT BEDTIME 11/10 2199 AC 11/14 PO 2209 Zolpidem Tartrate 2.5 MG AT BEDTIME NEED.. 11/09 2199 AC 11/10 PO 0041 Vital Signs & I&O Last 24 Hrs of Vitals and I&O: Vital Signs Date Time Temp Pulse Resp B/P Pulse O2 O2 Flow FiO2 Ox Delivery Rate 11/15 0804 98.1 65 20 118/78 90 Room Air 11/15 0004 97.6 83 18 145/101 97 Room Air 11/14 1551 97.4 81 20 137/64 91 Intake & Output 11/15 1600 11/15 0800 11/15 0000 Intake Total 650 Output Total Balance 650 Intake, Oral 650 Impression/Plan Impression/Plan Impression/Plan: 46-year-old with history of bipolar disorder and chronic back pain presenting with left scrotal pain and swelling that is on and off for last few weeks. He was started on oral antibiotics with failure. He has acute epididymitis/ orchitis. chlamydia and gonorrhea urine antigen test is negative. Patient possibly has oropharyngeal danilo. Plan Unasyn Nystatin swish and swallow Continue other home meds DVT prophylaxis Uro on board DC in am
[2016-11-15 15:47] VITALS: BP 132/78
[2016-11-15 23:33] VITALS: BP 144/64
--- NOTE | 2016-11-16 05:46 | PN- Housestaff ---
Subjective Follow-up For: - left scrotal swelling Subjective: Still complains of pain and swelling in the left scrotum. Pain decreased compared to yesterday. He remained afebrile overnight. Blood pressure was stable. Review of Systems Constitutional: Reports: see HPI. Objective Last 24 Hrs of Vital Signs/I&O Vital Signs Date Time Temp Pulse Resp B/P Pulse O2 O2 Flow FiO2 Ox Delivery Rate 11/15 2333 97.8 50 20 144/64 96 11/15 1547 97.8 79 18 132/78 97 11/15 0804 98.1 65 20 118/78 90 Room Air Intake & Output 11/16 0800 11/16 0000 11/15 1600 Intake Total 920 820 Output Total Balance 920 820 Intake, IV 120 100 Intake, Oral 800 720 Number 1 Bowel Movements Physical Exam General Appearance: No Acute Distress Other Physical Findings: General Exam: AAOx3, No acute distress, Skin: No rashes, no breakdown HEENT: PERRLA, EOMI Neck: Supple, No JVD No cervical lymphadenopathy CVS: Reg Rate, Normal S1,S2, No MGR Resp: Normal air entry, no ronchi/rales Abdomen: Soft, No tenderness, Normal Bowel Sounds, left scrotal swelling, tenderness. Neuro: Normal Speech, Strength 5/5 b/l x 4 extremities, Sensation intact, CN III -XII NL, Reflexes 2+ Extremities: No cyanosis, pedal edema Current Medications: Current Medications Sig/Delia Start time Last Medication Dose Route Stop Time Status Admin Acetaminophen 650 MG Q6PRN PRN 11/09 2199 AC PO Al Hydroxide/Mg 30 ML Q6P PRN 11/09 2199 AC Hydroxide PO Ampicillin Sodium/ 3,000 MG Q6 11/13 1800 AC 11/16 Sulbactam Sodium IV 0003 Sodium Chloride 100 ML Benzocaine/Menthol 1 TANO BID PRN 11/12 1800 AC PO Divalproex Sodium 500 MG TID 11/09 2199 AC 11/15 PO 2050 Docusate Sodium 100 MG DAILY 11/10 1000 AC 11/15 PO 806 Folic Acid 1 MG DAILY 11/10 1000 AC 11/15 PO 806 Heparin Sodium 5,000 UNIT Q8 11/09 2199 AC 11/09 (Porcine) SC 2244 Hydroxyzine HCl 25 MG AT BEDTIME NEED.. 02/13 2215 AC PO Mirtazapine 15 MG AT BEDTIME 11/10 2200 AC 11/15 PO 205 Morphine Sulfate 2 MG Q6-PRN PRN 11/15 1045 AC 11/16 IV 0002 Morphine Sulfate 2 MG Q4P PRN 11/10 1430 DC 11/15 IV 0641 Multivitamins 1 TAB DAILY 11/10 1000 AC 11/15 PO 0807 Nicotine 14 MG DAILY 11/11 1338 AC 11/15 TOP 0807 Nystatin 5 ML 4 TIMES/DAY 11/15 1400 DC 11/15 PO 11/15 220 205 Omeprazole 20 MG DAILY AC 11/11 0700 AC 11/15 PO 0625 Ondansetron HCl 4 MG Q8P PRN 11/09 2200 AC IV Oxycodone/ 1 TAB Q6P PRN 11/09 2215 AC 11/15 Acetaminophen PO 210 Pantoprazole Sodium 40 MG ONCE ONE 11/15 2045 DC 11/15 IV 11/15 Polyethylene Glycol 17 GM DAILY PRN 11/14 0630 AC PO Quetiapine Fumarate 300 MG AT BEDTIME 11/10 2200 AC 11/15 PO 205 Senna 187 MG AT BEDTIME PRN 11/14 0630 AC PO Venlafaxine HCl 300 MG AT BEDTIME 11/10 2200 AC 11/15 PO 205 Zolpidem Tartrate 2.5 MG AT BEDTIME NEED.. 11/09 220 AC 11/10 PO 0041 Assessment/Plan Assessment: He is a young man with a past history of bipolar disorder is being evaluated for left scrotal swelling, pain, fever. He was treated with antibiotics, with no resolution of symptoms. Ultrasound of the testes reveals large left-sided hydrocele. Normal vascular flow in the right and left testicle. No evidence of torsion. Differential diagnosis: #1 hydrocele #2 epididymitis #3 orchitis #4 inguinal hernia Below is the problem list and plan: #1 left scrotal swelling-likely because of hydrocele and epididymitis/orchitis. Blood cultures have been negative so far. Chlamydia and gonorrhea PCR-negative. RPR, HIV, hepatitis are negative. Continue to monitor for leukocytosis and fever. Restarted unasyn. Aspiration of hydrocele, if inflammation is resolved. Await recommendation from urology, if any possible aspiration could be done. If not, the patient did be discharged in the a.m. on by mouth antibiotics- Augmentin. #2 pain IV morphine, frequency of which has been decreased. Continue Percocet. #4 mental health-history of bipolar disorder. Currently on Effexor, Seroquel, Depakote, Ambien and Remeron. Possible psychiatric evaluation at the time of discharge. #5 Sore throat- chlorseptic lozenges. Meets [facility]'s criteria. Strep throat- pending results. #5 DVT prophylaxis-heparin. Problem List: 1. Epididymitis 2. Marijuana abuse 3. Benzodiazepine abuse Pain Ratin Pain Location: Left scrotum Pain Goal: Pain 4 or less Pain Plan: Tylenol when necessary Tomorrow's Labs & Rationales: No labs necessary
[2016-11-16 08:17] VITALS: BP 138/68
--- NOTE | 2016-11-16 08:54 | PN- Att Addend ---
Attending Addendum Attending Brief Note Patient complains of persisting pain and swelling. He complains of sore throat. General Appearance: Alert, No Acute Distress Skin: Grossly normal HEENT: PEERLA Neck: Supple, No JVD Cardiovascular: Regular Rate, Normal S1, Normal S2, No Murmurs Lungs: Clear to Auscultation, Normal Air Movement Abdomen: Left scrotal swelling, redness and tenderness Neurological: Normal Speech, Strength at 5/5 X4 Ext, Cranial Nerves 3-12 NL, Reflexes 2+ Extremities: No Clubbing, No Cyanosis, No Edema Vascular: Normal Pulses Assessment 46-year-old with history of bipolar disorder and chronic back pain presenting with left scrotal pain and swelling that is on and off for last few weeks. He was seen at our office and was started on oral antibiotics with failure. He now presents with severe pain associated with chills and rigors. He has acute epididymitis/orchitis. chlamydia and gonorrhea urine antigen test is negative. Patient possibly has oropharyngeal danilo on nystatin. He is currently on Unasyn with some improvement. We will have a reevaluation by urology. Plan Get urology reevaluation Continue current antibiotics Nystatin swish and swallow Continue other home meds DVT prophylaxis Current Medications Sig/Delia Start time Last Medication Dose Route Stop Time Status Admin Acetaminophen 650 MG Q6PRN PRN 11/09 2199 AC PO Al Hydroxide/Mg 30 ML Q6P PRN 11/09 2199 AC Hydroxide PO Ampicillin Sodium/ 3,000 MG Q6 11/13 1800 AC 11/16 Sulbactam Sodium IV 0559 Sodium Chloride 100 ML Benzocaine/Menthol 1 TANO BID PRN 11/12 1800 AC PO Divalproex Sodium 500 MG TID 11/09 2199 AC 11/15 PO 205 Docusate Sodium 100 MG DAILY 11/10 1000 AC 11/15 PO 0807 Folic Acid 1 MG DAILY 11/10 1000 AC 11/15 PO 0807 Heparin Sodium 5,000 UNIT Q8 11/09 2199 AC 11/09 (Porcine) SC 2244 Hydroxyzine HCl 25 MG AT BEDTIME NEED.. 11/09 2214 AC PO Mirtazapine 15 MG AT BEDTIME 11/10 2199 AC 11/15 PO 205 Morphine Sulfate 2 MG Q6-PRN PRN 11/15 1045 AC 11/16 IV 0002 Morphine Sulfate 2 MG Q4P PRN 11/10 1430 DC 11/15 IV 0641 Multivitamins 1 TAB DAILY 11/10 1000 AC 11/15 PO 0807 Nicotine 14 MG DAILY 11/11 1338 AC 11/15 TOP 0807 Nystatin 5 ML 4 TIMES/DAY 11/15 1400 DC 11/15 PO 11/15 Omeprazole 20 MG DAILY AC 11/11 0700 AC 11/16 PO 0559 Ondansetron HCl 4 MG Q8P PRN 11/09 220 AC IV Oxycodone/ 1 TAB Q6P PRN 11/09 221 AC 11/16 Acetaminophen PO 0559 Pantoprazole Sodium 40 MG ONCE ONE 11/15 2044 DC 11/15 IV 11/15 Polyethylene Glycol 17 GM DAILY PRN 11/14 0630 AC PO Quetiapine Fumarate 300 MG AT BEDTIME 11/10 2199 AC 11/15 PO 2051 Senna 187 MG AT BEDTIME PRN 11/14 0630 AC PO Venlafaxine HCl 300 MG AT BEDTIME 11/10 2199 AC 11/15 PO 2050 Zolpidem Tartrate 2.5 MG AT BEDTIME NEED.. 11/09 2199 AC 11/10 PO 0041 Vital Signs Date Time Temp Pulse Resp B/P Pulse O2 O2 Flow FiO2 Ox Delivery Rate 11/16 0817 98.1 55 20 138/68 94 Room Air 11/15 2333 97.8 50 20 144/64 96 11/15 1547 97.8 79 18 132/78 97
[2016-11-16 16:00] VITALS: BP 120/84
[2016-11-16 23:47] VITALS: BP 126/60
--- NOTE | 2016-11-17 06:01 | PN- Housestaff ---
Subjective Follow-up For: - acute epididymo orchitis Subjective: Checked CTPMP, and he received opiates on 11/02/16. Dr. Montana recommended that we discharge the pt on percocet, as a taper. CMR signed by Dr. Montana. He was comfortable this morning. Pain adequately controlled with current regimen. Evaluated by urology-Dr. Gonzalez this morning, and he was comfortable discharging the patient;reassess him as an outpatient for further management- possibly aspiration. Review of Systems Constitutional: Reports: see HPI. Objective Last 24 Hrs of Vital Signs/I&O Vital Signs Date Time Temp Pulse Resp B/P Pulse O2 O2 Flow FiO2 Ox Delivery Rate 11/16 2347 98.3 98 20 126/60 91 Room Air 11/16 1600 97.8 109 20 120/84 92 11/16 0817 98.1 55 20 138/68 94 Room Air Intake & Output 11/17 0800 11/17 0000 11/16 1600 Intake Total 100 240 Output Total Balance 100 240 Intake, IV 100 Intake, Oral 240 Number 1 Bowel Movements Physical Exam General Appearance: No Acute Distress Other Physical Findings: General Exam: AAOx3, No acute distress, Skin: No rashes, no breakdown HEENT: PERRLA, EOMI Neck: Supple, No JVD No cervical lymphadenopathy CVS: Reg Rate, Normal S1,S2, No MGR Resp: Normal air entry, no ronchi/rales Abdomen: Soft, No tenderness, Normal Bowel Sounds, left scrotal swelling. Neuro: Normal Speech, Strength 5/5 b/l x 4 extremities, Sensation intact, CN III -XII NL, Reflexes 2+ Extremities: No cyanosis, pedal edema Current Medications: Current Medications Sig/Delia Start time Last Medication Dose Route Stop Time Status Admin Acetaminophen 650 MG Q6PRN PRN 11/090 AC PO Al Hydroxide/Mg 30 ML Q6P PRN 11/09 2200 AC Hydroxide PO Ampicillin Sodium/ 3,000 MG Q6 11/13 1800 AC 11/16 Sulbactam Sodium IV 2323 Sodium Chloride 100 ML Benzocaine/Menthol 1 TANO BID PRN 11/12 1800 AC PO Divalproex Sodium 500 MG TID 11/09 2200 AC 11/16 PO 2117 Docusate Sodium 100 MG DAILY 11/10 1000 AC 11/16 PO 1003 Folic Acid 1 MG DAILY 11/10 1000 AC 11/16 PO 1003 Heparin Sodium 5,000 UNIT Q8 11/09 2200 AC 11/16 (Porcine) SC 1335 Hydroxyzine HCl 25 MG AT BEDTIME NEED.. 11/09 2214 AC PO Mirtazapine 15 MG AT BEDTIME 11/10 2200 AC 11/16 PO 2116 Morphine Sulfate 2 MG Q6-PRN PRN 11/15 1045 AC 11/17 IV 0307 Multivitamins 1 TAB DAILY 11/10 1000 AC 11/16 PO 1003 Nicotine 14 MG DAILY 11/11 1338 AC 11/16 TOP 1003 Omeprazole 20 MG DAILY AC 11/11 0700 AC 11/16 PO 0559 Ondansetron HCl 4 MG Q8P PRN 11/09 220 AC IV Oxycodone/ 1 TAB Q6P PRN 11/09 221 DC 11/16 Acetaminophen PO 211 Polyethylene Glycol 17 GM DAILY PRN 11/14 0630 AC PO Quetiapine Fumarate 300 MG AT BEDTIME 11/10 220 AC 11/16 PO 211 Senna 187 MG AT BEDTIME PRN 11/14 0630 AC PO Venlafaxine HCl 300 MG AT BEDTIME 11/10 2200 AC 11/16 PO 2116 Zolpidem Tartrate 2.5 MG AT BEDTIME NEED.. 11/09 2199 DC 11/10 PO 0041 Assessment/Plan Assessment: He is a young man with a past history of bipolar disorder is being evaluated for left scrotal swelling, pain, fever. He was treated with antibiotics, with no resolution of symptoms. Ultrasound of the testes reveals large left-sided hydrocele. Normal vascular flow in the right and left testicle. No evidence of torsion. Differential diagnosis: #1 hydrocele Below is the problem list and plan: #1 left scrotal swelling-likely because of hydrocele and epididymitis/orchitis. Blood cultures have been negative so far. Chlamydia and gonorrhea PCR-negative. RPR, HIV, hepatitis are negative. Continue to monitor for leukocytosis and fever. Restarted unasyn. Aspiration of hydrocele, if inflammation is resolved. #2 pain IV morphine, frequency of which has been decreased. Continue Percocet. #4 mental health-history of bipolar disorder. Currently on Effexor, Seroquel, Depakote, Ambien and Remeron. Possible psychiatric evaluation at the time of discharge. #5 Sore throat- chlorseptic lozenges. #5 DVT prophylaxis-heparin. Problem List: 1. Epididymitis 2. Marijuana abuse 3. Benzodiazepine abuse 4. Opiate dependence Pain Ratin Pain Location: Left scrotum Pain Goal: Pain 4 or less Pain Plan: Percocet Tomorrow's Labs & Rationales: No labs necessary. Patient to be discharged.
[2016-11-17 08:14] VITALS: BP 140/80
[2016-11-17] MEDS ORDERED: AUGMENTIN 875-1 EACH PO ×2 (08:20→11:00)
--- NOTE | 2016-11-17 08:20 | Patient Discharge Instructions ---
Discharge Instructions General Discharge Information You were seen/treated for: Epidymitis Special Instructions: 1. Please see your PCP within one week 2. Please see your urologist within one week. Please contact his office as soon as possible, for scheduling a possible procedure. 3. Please take your medications as prescribed. Acute Coronary Syndrome Inclusion Criteria At DC or during hospital stay patient has or had the following: ACS DIAGNOSIS No Discharge Core Measures Meds if any: Prescribed or Continued at Discharge Meds if any: NOT Prescribed or Continued at Discharge Congestive Heart Failure Inclusion Criteria At DC or during hospital stay patient has or had the following: CHF DIAGNOSIS No Discharge Core Measures Meds if any: Prescribed or Continued at Discharge Meds if any: NOT Prescribed or Continued at Discharge Cerebrovascular accident Inclusion Criteria At DC or during hospital stay patient has or had the following: CVA/TIA Diagnosis No Discharge Core Measures Meds if any: Prescribed or Continued at Discharge Meds if any: NOT Prescribed or Continued at Discharge Venous thromboembolism Inclusion Criteria VTE Diagnosis No VTE Type NONE VTE Confirmed by (Test) NONE Discharge Core Measures - Per Current guidelines, there needs to be overlap - treatment for the first 5 days of Warfarin therapy. - If discharged on Warfarin prior to 5 days of - overlap therapy, the patient will need to be - assessed for post discharge needs including - *Post discharge parental anticoagulation - *Warfarin and/or parental anticoagulation education - *Follow up date to check INR post discharge At least 5 days overlap therapy as Inpatient No Meds if any: Prescribed or Continued at Discharge Note: Overlap Therapy is Warfarin and Anticoagulant Meds if any: NOT Prescribed or Continued at Discharge
[2016-11-17] MEDS ORDERED: TYLENOL EXTRA500 M2 PO (08:25)
[2016-11-17] MEDS ORDERED: PERCOCET 5-3251 EACH PO ×2 (08:32→11:00)
--- NOTE | 2016-11-17 08:42 | PN- Att Addend ---
Attending Addendum Attending Brief Note Patient reports improved pain however swelling is persistent General Appearance: Alert, No Acute Distress Skin: Grossly normal HEENT: PEERLA Neck: Supple, No JVD Cardiovascular: Regular Rate, Normal S1, Normal S2, No Murmurs Lungs: Clear to Auscultation, Normal Air Movement Abdomen: Left scrotal swelling, redness Neurological: Normal Speech, Strength at 5/5 X4 Ext, Cranial Nerves 3-12 NL, Reflexes 2+ Extremities: No Clubbing, No Cyanosis, No Edema Vascular: Normal Pulses Assessment 46-year-old with history of bipolar disorder and chronic back pain presenting with left scrotal pain and swelling that is on and off for last few weeks. He was seen at our office and was started on oral antibiotics with failure. He now presents with severe pain associated with chills and rigors. He has acute epididymitis/orchitis. chlamydia and gonorrhea urine antigen test is negative. Patient possibly has oropharyngeal danilo on nystatin. He is currently on Unasyn with improvement. We will have a reevaluation by urology prior to discharge and transition to oral antibiotics. Plan Get urology reevaluation Augmentin for 1 more week Discharge on Percocet taper Continue other home meds DVT prophylaxis Current Medications Sig/Delia Start time Last Medication Dose Route Stop Time Status Admin Acetaminophen 650 MG Q6PRN PRN 11/09 2199 AC PO Al Hydroxide/Mg 30 ML Q6P PRN 11/09 2199 AC Hydroxide PO Ampicillin Sodium/ 3,000 MG Q6 11/13 1800 AC 11/17 Sulbactam Sodium IV 0630 Sodium Chloride 100 ML Benzocaine/Menthol 1 TANO BID PRN 11/12 1800 AC PO Divalproex Sodium 500 MG TID 11/09 220 AC 11/16 PO 2117 Docusate Sodium 100 MG DAILY 11/10 1000 AC 11/16 PO 1003 Folic Acid 1 MG DAILY 11/10 1000 AC 11/16 PO 1003 Heparin Sodium 5,000 UNIT Q8 11/09 2199 AC 11/16 (Porcine) SC 1335 Hydroxyzine HCl 25 MG AT BEDTIME NEED.. 11/09 2214 AC PO Mirtazapine 15 MG AT BEDTIME 11/10 2200 AC 11/16 PO 2116 Morphine Sulfate 2 MG Q6-PRN PRN 11/15 1045 AC 11/17 IV 0307 Multivitamins 1 TAB DAILY 11/10 1000 AC 11/16 PO 1003 Nicotine 14 MG DAILY 11/11 1338 AC 11/16 TOP 1003 Omeprazole 20 MG DAILY AC 11/11 0700 AC 11/17 PO 0630 Ondansetron HCl 4 MG Q8P PRN 11/09 2199 AC IV Oxycodone/ 1 TAB Q6P PRN 11/17 0630 AC 11/17 Acetaminophen PO 0635 Oxycodone/ 1 TAB Q6P PRN 11/09 2214 DC 11/16 Acetaminophen PO 211 Polyethylene Glycol 17 GM DAILY PRN 11/14 629 AC PO Quetiapine Fumarate 300 MG AT BEDTIME 11/10 2199 AC 11/16 PO 211 Senna 187 MG AT BEDTIME PRN 11/14 629 AC PO Venlafaxine HCl 300 MG AT BEDTIME 11/10 2199 AC 11/16 PO 211 Zolpidem Tartrate 2.5 MG AT BEDTIME NEED.. 11/09 2199 DC 11/10 PO 0041 Vital Signs Date Time Temp Pulse Resp B/P Pulse O2 O2 Flow FiO2 Ox Delivery Rate 11/17 0814 97.8 84 20 140/80 93 Room Air 11/16 2347 98.3 98 20 126/60 91 Room Air 11/16 1600 97.8 109 20 120/84 92
--- NOTE | 2016-12-02 14:34 | Discharge Summary ---
Visit Information Visit Dates Admission Date: 11/09/16 Discharge Date: 11/17/16 Hospital Course Course Attending Physician: MICHELLE POTTER MD Primary Care Physician: LEXY LINDSAY,SERJIO Dorsey Consulting Request: Consulting Specialty: Urology Consulting Physician: Dr. Gonzalez [facility] Course: 46-year-old man who was known to be in his usual state of health until 6 weeks ago presented to [facility] with chief concern of worsening left scrotal swelling and pain 6 weeks. As per the patient, he had difficulty urination and pain in his left scrotum after he drove for 17 hours 6 weeks ago, which worsened in the last 2 weeks. Pain located in the left scrotum, no radiation, 7/10 in severity. Inability to move or work. Reports difficulty urination, but no dysuria. No abnormal discharge. reported fever (recorded temp 100.1), associated with chills. Treated with antibiotics as out pt for a week, with no improvement. 1. scrotal cellulitis/hydrocele STD workup was negative. He was treated on Unasyn with gradual improvement. Ultrasound scrotum suggested a large hydrocele. Cultures on this admission was negative and patient was evaluated by urology who recommended possible aspiration of the hydrocele after the infection has subsided. With improvement in his symptoms he was discharged home on Augmentin with recommendations for further follow-up with urology as outpatient. Allergies: Coded Allergies: No Known Allergies (11/21/16) Disposition Summary Disposition Principal Diagnosis: scrotal cellulitis Additional Diagnosis: hydrocele bipolar disorder Discharge Disposition: home or self care Discharge Instructions General Discharge Information Code Status: Full Code Patient's Diet: regular diet Patient's Activity: no limitations Follow-Up Instructions/Appts: follow-up with urology as outpatient Medications at Discharge Discharge Medications: Continue taking these medications: Esomeprazole Magnesium (Nexium) 20 MG CAPSULE. 1 Capsule ORAL DAILY Comments: NOT GIVEN IN HOSPITAL Aspirin (Ecotrin*) 81 MG TABLET. 2-4 Tablet ORAL as needed for PAIN Comments: PER PT Start taking the following new medications: Oxycodone HCl/Acetaminophen (Percocet 5-325 MG Tablet) 5 MG-325 MG TABLET 1 Tablet ORAL TWICE DAILY Qty = 8 No Refills Instructions: Please take 1 tab twice daily on 11/17, 11/18, 11/19 1 tab once daily on 11/20,11/21. Please stop on 11/21.. Comments: Last Taken: 11/17/16 Time: 0645AM Amoxicillin/Potassium Clav (Augmentin 875-125 Tablet) 875 MG-125 MG TABLET 1 Tablet ORAL TWICE DAILY Qty = 14 No Refills Instructions: . Comments: NOT GIVEN Copies To: LEON LINDSAY,JULIANE Attending MD Review Statement Documenting Attending: MICHELLE POTTER MD
[2016-12-30] MEDS ORDERED: LEXAPRO10 M1 PO (10:43)
[2016-12-30] MEDS ORDERED: SEROQUEL400 M1 PO (10:44)
[2016-12-30] MEDS ORDERED: SEROQUEL100 M1 PO (10:44)
== END 2016-11-17 12:07 | DRG 501 ==
LOC: ENRESERVTM → ENRESERVDT → ERH 18:19 → ERHI 21:28 → 2NB 21:28 → ENPENDDIS 21:28 → 2NB 11-10 00:27
PROVIDERS: Emergency Medicine; Internal Medicine; Internal Medicine Endocrinology, Diabetes & Metabolism; ADMIT Urology
DX: N45.3 Epididymo-orchitis (principal); N43.3 Hydrocele, unspecified; B37.0 Candidal stomatitis; F13.10 Sedative, hypnotic or anxiolytic abuse, uncomplicated; F12.10 Cannabis abuse, uncomplicated; F31.9 Bipolar disorder, unspecified
CPT/HCPCS: 2NBSP; ERO; 36415; 80307; 81001; 82436; 87040; 87389; 87491; 87591; 87804; 87804-59; 93005; 93010; 94799; 96361; 96374; 96375; 96376; J0696; J1644; J3490

== ENCOUNTER 2016-11-21 17:22 | Inpatient (IN) | payer OTHER ==
[~2016-11-21] VITALS: Ht 182.9 cm; Wt 90.7 kg
[~2016-11-21 17:22] MED LIST: ASPIRIN EC81 M1 PO; AUGMENTIN 875-1 EACH PO; DIVALPROEX SOD500 M3 PO; HYDROXYZINE HCL25 M2 PO; MIRTAZAPINE45 M1 PO; NEXIUM20 M1 PO; PERCOCET 5-3251 EACH PO; QUETIAPINE FUM300 M1 PO; TYLENOL EXTRA500 M2 PO; VENLAFAXINE HC150 MG PO
--- NOTE | 2016-11-21 17:54 | NUR ---
Informed waiting has been performed.
--- NOTE | 2016-11-21 17:54 | NUR ---
TRIAGE: PT TO ER C/C L TESTICULAR PAIN, WEAKNESS AND 25 LB WEIGHT LOSS IN 5 DAYS. STATES WAS INPATIENT AT [facility] FOR 8 DAYS FOR TREATMENT OF L TESTICULAR INFECTION. WAS D/C'D 11/17 AND STATES HAS NOT BEEN ABLE TO KEEP ANYTHING DOWN. FEELS DEHYDRATED. +DRY HEAVING AT TRIAGE. HR 133, REGULAR AT TRIAGE. COMPLAINS ONLY OF PAIN TO L TESTICLE. EKG ORDERED FROM TRIAGE.
[2016-11-21 18:20] LABS: ABSOLUTE BASOPHIL COUNT 0.1 /CUMM (0.0-0.2); ABSOLUTE EOSINOPHIL COUNT 0 /CUMM (0.0-0.7); ABSOLUTE GRANULOCYTE CT 12.4 /CUMM (1.4-6.5); ABSOLUTE MONOCYTE COUNT 0.9 /CUMM (0.10-0.60); BASOPHIL % 0.3 % (0.0-2.0); EOSINOPHIL % 0.1 % (0-5); HEMATOCRIT 52.2 % (42-52); MEAN CORPUSCULAR HGB 27.8 PG (27.0-31.0); MEAN CORPUSCULAR HGB CONC 32.9 G/DL (33.0-37.0); MEAN CORPUSCULAR VOLUME 84.6 FL (80.0-94.0); PLATELET COUNT 544 /CUMM (130-400); RBC DISTRIBUTION WIDTH 14.1 % (11.5-14.5); RED BLOOD CELL CT 6.17 /CUMM (4.70-6.10); WHITE BLOOD CELL COUNT 16.4 /CUMM (4.8-10.8)
[2016-11-21 18:23] LABS: GRANULOCYTE % 75.4 % (42.2-75.2)
--- NOTE | 2016-11-21 19:16 | ED GENERAL ADULT ---
History of Present Illness General Chief Complaint: General Adult Stated Complaint: VOMITING,WEAKNESS,WEIGHT LOSS Source: patient, old records Exam Limitations: no limitations Vital Signs & Intake/Output Vital Signs & Intake/Output Vital Signs Date Time Temp Pulse Resp B/P Pulse O2 O2 Flow FiO2 Ox Delivery Rate 11/21 2109 98.1 113 20 132/96 95 Room Air 11/21 1948 99.1 116 18 132/106 93 Room Air 11/21 1942 Room Air 11/217 97.1 133 26 145/94 98 Room Air Allergies Coded Allergies: No Known Allergies (11/21/16) Reconcile Medications Amoxicillin/Potassium Clav (Augmentin 875-125 Tablet) 875 MG-125 MG TABLET 1 TAB PO BID scrotal swelling . Aspirin (Ecotrin*) 81 MG TABLET.DR 2-4 TAB PO PRN PAIN (Reported) Esomeprazole Magnesium (Nexium) 20 MG CAPSULE.DR 1 CAP PO DAILY GI (Reported) Oxycodone HCl/Acetaminophen (Percocet 5-325 MG Tablet) 5 MG-325 MG TABLET 1 TAB PO BID pain Please take 1 tab twice daily on 11/17, 11/18, 11/19 1 tab once daily on 11/20,11/21. Please stop on 11/21.. Triage Note: TRIAGE: PT TO ER C/C L TESTICULAR PAIN, WEAKNESS AND 25 LB WEIGHT LOSS IN 5 DAYS. STATES WAS INPATIENT AT [facility] FOR 8 DAYS FOR TREATMENT OF L TESTICULAR INFECTION. WAS D/C'D 11/17 AND STATES HAS NOT BEEN ABLE TO KEEP ANYTHING DOWN. FEELS DEHYDRATED. +DRY HEAVING AT TRIAGE. HR 133, REGULAR AT TRIAGE. COMPLAINS ONLY OF PAIN TO L TESTICLE. EKG ORDERED FROM TRIAGE. Triage Nurses Notes Reviewed? yes HPI: Patient is a 46-year-old male presents complaining of nausea, vomiting, left testicular pain. Patient was admitted a couple weeks ago for epididymitis, was in the hospital for 8 days and discharged approximately 5 days ago. Since discharge patient has been vomiting numerous times each day with over 20 pound weight loss. Patient has been trying to take the Augmentin that was prescribed to him when he was discharged, but reports that there has not been any improvement of his left scrotal swelling or pain. Denies fevers, dysuria, hematuria, penile discharge. (EBONY SANFORD,CHOLO) Past History Travel History Traveled to [place] past 21 day No Medical History Any Pertinent Medical History? see below for history Neurological: NONE EENT: NONE Cardiovascular: NONE Respiratory: NONE Gastrointestinal: NONE Hepatic: NONE Renal: NONE Musculoskeletal: INFECTION L TESTICLE RUPTURED DISK Psychiatric: bipolar disease Endocrine: NONE Blood Disorders: NONE Cancer(s): NONE [employer] S[employer]OL PRINCIPAL/Reproductive: NONE History of MRSA: No History of VRE: No History of CDIFF: No Surgical History Surgical History: spinal fusion Psychosocial History Who do you live with Patient/Self Services at Home None What is your primary language Pashto Tobacco Use: Quit >30 days ago ETOH Use: denies use Illicit Drug Use: denies illicit drug use Family History Family History, If Any: FATHER (thymoma ?). Hx Contributory? No (CHOLO LINDA) Review of Systems Review of Systems Constitutional: Reports: malaise, weakness. Denies: chills, fever. EENTM: Reports: no symptoms. Respiratory: Denies: cough, short of breath. Cardiovascular: Denies: chest pain. GI: Reports: abdominal pain, constipation, nausea, vomiting. Genitourinary: Reports: see HPI, pain. Musculoskeletal: Reports: no symptoms. Skin: Reports: no symptoms. Neurological/Psychological: Reports: no symptoms. Hematologic/Endocrine: Reports: no symptoms. Immunologic/Allergic: Reports: no symptoms. (CHOLO LINDA) Physical Exam Physical Exam General Appearance: alert, awake Head: atraumatic, normal appearance Eyes: Bilateral: normal appearance, PERRL, EOMI. Ears, Nose, Throat: normal pharynx, normal ENT inspection, hearing grossly normal Neck: normal inspection, supple, full range of motion Respiratory: normal breath sounds, chest non-tender, no respiratory distress, lungs clear Cardiovascular: tachycardia (regular rhythm, no murmur) Gastrointestinal: normal bowel sounds, soft, mild diffuse tenderness Back: normal inspection, normal range of motion Extremities: normal inspection, normal capillary refill, normal range of motion, no edema Neurologic/Psych: no motor/sensory deficits, awake, alert, oriented x 3, normal gait, normal mood/affect Skin: intact, normal color, warm/dry Comments: exam: Left scrotal swelling. Mild left testicular and epididymal tenderness. Core Measures ACS in differential dx? No CVA/TIA Diagnosis: No Severe Sepsis Present: No Septic Shock Present: No (CHOLO LINDA) Progress Differential Diagnoses I considered the following diagnoses in my evaluation of the patient: dehydration, sepsis, epididymitis, orchitis, intra-abdominal infection Initial ED EKG: sinus tachycardia 113 bpm, nonspecific st/t wave abnormalities, likely rate related (CHOLO LINDA) Plan of Care: Orders Procedure Date/time Status Regular Diet 11/22 B Active Pathway - chart 11/21 2257 Active House Staff 11/21 2257 Active Patient Data 11/21 2257 Active Code Status 11/21 2257 Active URINE DRUGS OF ABUSE 11/21 2208 Active CULTURE,URINE 11/21 2205 Active URINALYSIS 11/21 2205 Active Admit to inpatient 11/21 2143 Active Patient Data 11/21 2121 Active Add-on Test (ER Only) 11/21 1922 Active BLOOD CULTURE 11/21 1922 Active LACTIC ACID 11/21 181 Complete BLOOD CULTURE 11/21 175 Active COMPREHENSIVE METABOLIC PANEL 11/21 175 Complete CBC WITHOUT DIFFERENTIAL 11/21 175 Complete EKG 11/21 175 Active VTE Mechanical Prophylaxis 11/21 UNK Active Current Medications Sig/Delia Start time Last Medication Dose Stop Time Status Admin Heparin Sodium 5,000 UNIT Q8 11/22 0600 UNVr (Porcine) Acetaminophen 650 MG Q4P PRN 11/21 2300 UNVr (Tylenol) Omeprazole 40 MG DAILY AC 11/21 2300 UNVr (Prilosec) Oxycodone/ 1 TAB Q6P PRN 11/21 2300 UNVr Acetaminophen (Percocet) Sodium Chloride 1,000 ML .Q10H 11/21 2300 UNVr (Normal Saline 0.9%) Laboratory Tests 11/21/16 1810: Anion Gap 25 H, Estimated GFR 31 L, BUN/Creatinine Ratio 18.3, Glucose 121 H, Lactic Acid 1.6, Calcium 10.9 H, Total Bilirubin 0.7, AST 32, ALT 41, Alkaline Phosphatase 97, Total Protein 10.3 H, Albumin 5.4 H, Globulin 4.9 H, Albumin/ Globulin Ratio 1.1, CBC w Diff NO MAN DIFF REQ, RBC 6.17 H, MCV 84.6, MCH 27.8, RDW 14.1, MPV 9.0, Gran % 75.4 H, Lymphocytes % 18.5 L, Monocytes % 5.7, Eosinophils % 0.1, Basophils % 0.3, Absolute Granulocytes 12.4 H, Absolute Lymphocytes 3.0, Absolute Monocytes 0.9 H, Absolute Eosinophils 0, Absolute Basophils 0.1, PUBS MCHC 32.9 L Microbiology 11/21 2205 URINE ROUT: Urine Culture - ORD 11/21 2142 BLOOD: Blood Culture - RECD 11/21 1809 BLOOD: Blood Culture - RECD discussed with Dr. Gonzalez: start on Unasyn and IV fluids. Will consult on patient. Discussed with Dr. [place]: will admit patient. (CHOLO LINDA) Departure Departure Time of Disposition: 2117 Disposition: STILL A PATIENT Condition: Stable Clinical Impression Primary Impression: Acute kidney injury Secondary Impressions: Epididymitis Referrals: LEXY LINDSAY,SERJIO Dorsey (PCP/Family) Departure Forms: Customer Survey General Discharge Information Admission Note Spoke With: ABBEY LINDSAY,[facility] Documentation of Exam: Documentation of any treatments & extenuating circumstances including Concerns Regarding Discharge (functional status, medication knowledge or non-compliance, living conditions, etc.) that warrant an admission rather than observation: IV fluids, IV antibiotics, urology consultation, possible surgical intervention. (CHOLO ILNDA) PA/WHITTLING ROOM OPERATOR Co-Sign Statement Statement: ED Attending supervision documentation- [] I saw and evaluated the patient. I have also reviewed all the pertinent lab results and diagnostic results. I agree with the findings and the plan of care as documented in the PA's/WHITTLING ROOM OPERATOR's documentation. [x] I have reviewed the ED Record and agree with the PA's/WHITTLING ROOM OPERATOR's documentation. [] Additions or exceptions (if any) to the PAs/WHITTLING ROOM OPERATOR's note and plan are summarized below: [] (JUICE LINDSAY,RORO Simmons) Critical Care Note Critical Care Note Critical Care Time: non-applicable (CHOLO LINDA)
--- NOTE | 2016-11-21 19:25 | NUR ---
RECIEVED TO ROOM 16. PT AWAKE, ALERT, ORIENTED. PT RESTLESS. COMPLAINING OF ANXIETY AND PAIN. SEEN BY CHOLO BCEK AND TOLD HE WILL LIKELY NEED TO BE ADMITTED TO HOSPITAL. PLAN FOR IVF AND MEDS FOR COMFORT.
--- NOTE | 2016-11-21 19:41 | NUR ---
PT BECAME ACUTELY MORE RESTLESS, ARMS AND LEGS THRASHING IN BED. PT STATES HE IS VERY ANXIOUS. IV STARTED, BLOOD CULTURES DRAWN AND DILAUDID GIVEN. PT REASSURED THAT DILAUDID WILL EASE PAIN AND LIKELY HELP HIM RELAX.
--- NOTE | 2016-11-21 20:30 | NUR ---
PT WITH ONLY SOME PAIN RELIEF AFTER DILAUDID. REMAINS RESTLESS.
--- NOTE | 2016-11-21 21:05 | NUR ---
PT GIVEN SECOND DOSE OF DILAUDID.
--- NOTE | 2016-11-21 21:18 | NUR ---
PT STATES PAIN IMPROVED AND HE FEELS HE CAN LAY QUIETLY FOR CT SCAN. TAKEN TO CT SCAN
--- NOTE | 2016-11-21 21:51 | CT SCAN REPORT ---
EXAMINATION: CT ABDOMEN AND PELVIS WITHOUT CONTRAST CLINICAL INFORMATION: Abdominal pain, vomiting and tenderness. COMPARISON: Testicular ultrasound 11/09/2016. TECHNIQUE: Multidetector volumetric imaging was performed from the superior aspect of the liver through the pubic symphysis. Sagittal and coronal reformatted images were obtained on the technologist's workstation. DLP: 438 mGy-cm FINDINGS: Limited evaluation of the solid abdominal viscera in the absence of intravenous contrast. LUNG BASES: The visualized lung bases are unremarkable. LIVER, GALLBLADDER, AND BILIARY TREE: The liver is normal in size, shape, and attenuation. There is a lobular hypoattenuating lesion within the posterior right hepatic lobe measuring 1.0 x 1.5 cm (series 2, image 15). This lesion is incompletely characterized on this examination but could reflect a small hepatic cyst or hemangioma. No intrahepatic or extrahepatic biliary ductal dilatation is identified.. The gallbladder is unremarkable with no evidence of radiopaque gallstones, gallbladder wall thickening, or obvious pericholecystic inflammatory changes. PANCREAS: Unremarkable. SPLEEN: Unremarkable. ADRENAL GLANDS: Unremarkable. KIDNEYS AND URETERS: Evaluation of the bilateral kidneys and renal collecting systems is notable for bilateral simple renal cortical cysts, visualized measuring up to 1.6 x 1.9 cm within the upper pole of the left kidney and 3.1 x 3.5 cm within the lower pole of the right kidney. There is a 2.7 x 2.7 cm renal cortical cyst within the midpole of the right kidney with peripheral rim calcification. No renal or ureteral stones are identified and there is no hydroureteronephrosis of either kidney or renal collecting system. BLADDER: Unremarkable. GASTROINTESTINAL TRACT: Normal anatomic orientation of the stomach relative to the duodenum. Normal caliber of abdominal and pelvic bowel loops, without evidence of obstruction or ileus. No circumferential bowel wall thickening with surrounding inflammatory changes to suggest an underlying infectious or inflammatory enterocolitis. Normal-appearing appendix within the right lower quadrant of the abdomen. Scattered colonic diverticulosis, notably involving the descending and rectosigmoid colon, without secondary signs of acute diverticulitis. No organizing intra-abdominal fluid collections or free intraperitoneal air. ABDOMINAL WALL: No significant hernia is appreciated. LYMPH NODES: No significant abdominal or pelvic adenopathy. VASCULAR: Normal course and caliber of the abdominal aorta and its branching vessels, without aneurysmal dilatation. Limited evaluation for vascular patency in the absence of intravenous contrast. PELVIC VISCERA: Partially visualized left-sided hydrocele. OSSEOUS STRUCTURES: No acute osseous abnormality. Normal alignment of the imaged thoracolumbar spine. No destructive osseous lesions. IMPRESSION: No acute findings within the abdomen or pelvis to explain patient symptomatology. There is a partially visualized left-sided hydrocele.
--- NOTE | 2016-11-21 22:46 | NUR ---
HOUSE STAFF IN TO SEE PT
--- NOTE | 2016-11-21 22:54 | NUR ---
HOUSE STAFF HEATHER SHAH, NOTIFIED OF NEED FOR ORDERS FOR PT TRANSFER, STATING ORDERS TO BE ENTERED NOW
--- NOTE | 2016-11-21 23:15 | History & Physical ---
See Addendum General Information and HPI Source of Information: patient, old records Exam Limitations: no limitations History of Present Illness: He is 46-year-old man with past medical history of bipolar disorder, recently discharged from [facility] on after getting treatment for acute epididymoorchitis with IV Unasyn and discharged on by mouth Augmentin. Patient presented to ER with complaint of intractable nausea and vomiting. According to patient he started taking his Augmentin on day of discharge and relate all his symptoms to Augmentin. He also reports having chills, diaphoresis and palpitations. His appetite was poor and he felt really dehydrated. He is also complaining of soreness in epigastric area. Denies any chest pain or discomfort , dizziness or lightheadedness. He also states loosing at least 20 pounds since his discharge. According to patient his left scrotal swelling is still there and he feels that its soft now but still sore. He also claims that since admission he has not passed his urine. He feels constipated and his last bowel movement was on day of discharge November 17. He denies smoking, drinking alcohol or use of recreational drugs. He only took Percocet that he was prescribed upon discharge. Allergies/Medications Allergies: Coded Allergies: No Known Allergies (11/21/16) Home Med list Amoxicillin/Potassium Clav (Augmentin 875-125 Tablet) 875 MG-125 MG TABLET 1 TAB PO BID scrotal swelling . Aspirin (Ecotrin*) 81 MG TABLET.DR 2-4 TAB PO PRN PAIN (Reported) Esomeprazole Magnesium (Nexium) 20 MG CAPSULE.DR 1 CAP PO DAILY GI (Reported) Oxycodone HCl/Acetaminophen (Percocet 5-325 MG Tablet) 5 MG-325 MG TABLET 1 TAB PO BID pain Please take 1 tab twice daily on 11/17, 11/18, 11/19 1 tab once daily on 11/20,11/21. Please stop on 11/21.. Past History Travel History Traveled to [place] past 21 day No Medical History Neurological: NONE EENT: NONE Cardiovascular: NONE Respiratory: NONE Gastrointestinal: NONE Hepatic: NONE Renal: NONE Musculoskeletal: INFECTION L TESTICLE RUPTURED DISK Psychiatric: bipolar disease Endocrine: NONE Blood Disorders: NONE Cancer(s): NONE CLIENT SERVICE CONSULTANT/Reproductive: NONE History of MRSA: No History of VRE: No History of CDIFF: No Surgical History Surgical History: spinal fusion Past Family/Social History Family History Relations & Conditions if any FATHER (thymoma ?). Psychosocial History Who Do You Live With? self Services at Home: None Primary Language: Swedish ETOH Use: denies use Illicit Drug Use: denies illicit drug use Review of Systems Review of Systems Constitutional: Reports: see HPI. Exam & Diagnostic Data Last 24 Hrs of Vital Signs/I&O Vital Signs Date Time Temp Pulse Resp B/P Pulse O2 O2 Flow FiO2 Ox Delivery Rate 11/21 2333 98.4 108 18 144/92 96 Room Air 11/21 2110 98.1 113 20 132/96 95 Room Air 11/21 194 99.1 116 18 132/106 93 Room Air 11/21 1943 Room Air 11/21 1747 97.1 133 26 145/94 98 Room Air Intake & Output 11/22 0800 11/22 0000 11/21 1600 Intake Total 2000 Output Total Balance 2000 Intake, IV 2000 Patient 175 lb Weight Physical Exam General Appearance Alert, Oriented X3, Cooperative, No Acute Distress Skin No Rashes Neck Supple Cardiovascular tachycardia Lungs Clear to Auscultation Abdomen Soft, Mild tenderness in epigastric area for deep palpation Neurological Normal Speech, Strength at 5/5 X4 Ext, Sensation Intact, Cranial Nerves 3-12 NL Extremities No Edema, Normal Pulses Reproductive (MALE) left hydrocele. No warmth, redness or skin changes. Mild tenderness Last 24 Hrs of Labs/Dheeraj: Laboratory Tests 11/21/16 1810: Anion Gap 25 H, Estimated GFR 31 L, BUN/Creatinine Ratio 18.3, Glucose 121 H, Lactic Acid 1.6, Calcium 10.9 H, Total Bilirubin 0.7, AST 32, ALT 41, Alkaline Phosphatase 97, Total Protein 10.3 H, Albumin 5.4 H, Globulin 4.9 H, Albumin/ Globulin Ratio 1.1, CBC w Diff NO MAN DIFF REQ, RBC 6.17 H, MCV 84.6, MCH 27.8, RDW 14.1, MPV 9.0, Gran % 75.4 H, Lymphocytes % 18.5 L, Monocytes % 5.7, Eosinophils % 0.1, Basophils % 0.3, Absolute Granulocytes 12.4 H, Absolute Lymphocytes 3.0, Absolute Monocytes 0.9 H, Absolute Eosinophils 0, Absolute Basophils 0.1, PUBS MCHC 32.9 L Microbiology 11/21 2205 URINE ROUT: Urine Culture - ORD 11/21 2143 BLOOD: Blood Culture - RECD 11/21 1810 BLOOD: Blood Culture - RECD Diagnostic Data EKG Results sinus tachy. NSR. no acute ST-T wave changes Other Results CT ABD & PELVIS W/O IV CONTRAS No acute findings within the abdomen or pelvis. BLADDER: Unremarkable. Bilateral simple renal cortical cysts. No renal or ureteral stones are identified and there is no hydroureteronephrosis of either kidney or renal collecting system. Assessment/Plan Assessment: He is 46-year-old man with past medical history of bipolar disorder, recently discharged from [facility] on after getting treatment for acute epididymoorchitis with IV Unasyn and discharged on by mouth Augmentin and Percocet. Patient was unable to make appointment with Dr. Gonzalez. Problem list 1. Intractable nausea and vomiting. Could be due to side effects of Percocet. Patient reports constipation. CT abdomen and pelvis did not show any evidence of obstruction or ileus 2. Dehydration resulting in acute kidney injury. BUN/creatinine is 42/2.3. CT abdomen shows bilateral simple renal cysts and no evidence of renal or ureteral stones. There is no hydroureteronephrosis of either kidney or renal collecting system. 3. Epididymoorchitis. SIRS criteria positive. Patient was taking Augmentin for that. 4. Constipation. Last bowel movement on November 17 5. Urinary retention. Patient reports that he has not urinated since discharge. Physical exam not suggestive of distended bladder. CT abdomen and pelvis shows unremarkable bladder. 6. History of bipolar disorder. According to patient he stopped taking all his psych meds after discharge as he slowly weaned off and currently he does not want any psych medications. Please note that patient was on Depakote, hydroxyzine, Seroquel, venlafaxine and mirtazapine. 7. History of GERD Plan We will admit patient to general medicine floor. Vitals every shift. Continue IV hydration. Zofran as needed for nausea. We will start patient again on IV Unasyn. Consult Dr. Gonzalez in a.m. avoid nephrotoxins. Repeat kidney functions in a.m. Bowel regimen, MiraLAX, senna and docusate. Will check UA and urine tox. Follow-up blood cultures and urine cultures. Pain management pathway. Subcutaneous heparin for DVT prophylaxis. Regular diet. Patient is full code As Ranked By This Provider Problem List: 1. Epididymitis 2. Acute kidney injury Core Measures/Miscellaneous Acute Coronary Syndrome ACS Diagnosis: No Cerebrovascular Accident CVA/TIA Diagnosis: No Congestive Heart Failure CHF Diagnosis: No Venous Thromboembolism VTE Risk Factors: Acute medical illness, Age > 40 VTE Prophylaxis Ordered Inpt: Pharm- Heparin No Mech VTE prophylaxis d/t: No contraindications No VTE Pharm Prophylaxis d/t: No contraindications VTE Diagnosis: No VTE Type: NONE VTE Confirmed by (Test): NONE Severe Sepsis Severe Sepsis Present: No Septic Shock Septic Shock Present: No Miscellaneous Documentation Attending Case Discussed With: MICHELLE POTTER MD Primary Care Physician: SERJIO PUGH MD Patient sees these Specialists psych Level of Patient Care: General Medicine Consults Needed: Consulting Specialty: Urology
--- NOTE | 2016-11-21 23:28 | NUR ---
BED ASSIGNED 210-2
--- NOTE | 2016-11-21 23:32 | NUR ---
PT MOVED TO ROOM 7. IV IN LEFT AC INFILTRATED. WAS REMOVED AND NEW IV PLACED IN RIGHT HAND. SECOND LITER OF IVF HUNG. PT DENIES URGE TO VOID, STILL NEED URINE SPECIMEN
--- NOTE | 2016-11-21 23:33 | NUR ---
REPORT CALLED TO [facility] ON SECOND FLOOR. [facility] AWARE PT IS TO GET IVF AT 100CC/HR AFTER CURRENT BAG COMPLETED. AND THAT PT NEEDS URINE SPECIMENS
[2016-11-22 01:27] VITALS: BP 122/78
--- NOTE | 2016-11-22 03:03 | NUR ---
LATE ENTRY NURSING NOTE: PT ARRIVED TO THE FLOOR AT APPROXIMATELY 2340 VIA STRETCHER WITHOUT FAMILY AT BEDSIDE. PT AOX3, RA, IND W/SUPERVISION. PT WAS HERE APPROX ONE WEEK AGO AND HAD A FALL. #[address] 11/21/ FLUSHING WELL. IVF HUNG, PLACED ALPS, ADMISTERED MEDS ORDERED. ORIENTED PT TO ROOM. PT HAD ONE SMALL BAG OF CLOTHES. PROVIDED PT WITH CRACKERS AND JUICE. BED IN LOWEST POSITION. WILL CONTINUE TO MONITOR.
--- NOTE | 2016-11-22 07:54 | PN- Housestaff ---
Subjective Follow-up For: - Acute epidydimitis Subjective: Patient comfortable this morning. Did not have any complaints. Pain adequately controlled with current regimen. Stated that he discontinued all his psychiatric medications, without seeking any medical advice. She did not want to restart any psychiatry medications. Encouraged him to have a psychiatrist see him, to be able to advice on restarting some of his medications. Vitals remained stable overnight. Review of Systems Constitutional: Reports: see HPI. Objective Last 24 Hrs of Vital Signs/I&O Vital Signs Date Time Temp Pulse Resp B/P Pulse O2 O2 Flow FiO2 Ox Delivery Rate 11/22 0127 98.5 106 20 122/78 99 Room Air 11/21 2333 98.4 108 18 144/92 96 Room Air 11/21 2110 98.1 113 20 132/96 95 Room Air 11/21 1949 99.1 116 18 132/106 93 Room Air 11/21 1943 Room Air 11/21 1747 97.1 133 26 145/94 98 Room Air Intake & Output 11/22 0800 11/22 0000 11/21 1600 Intake Total 1600 2000 Output Total 550 Balance 1050 2000 Intake, IV 800 2000 Intake, Oral 800 Output, Urine 550 Patient 200 lb 175 lb Weight Physical Exam General Appearance: No Acute Distress Other Physical Findings: General Exam: AAOx3, No acute distress, Skin: No rashes, no breakdown HEENT: PERRLA, EOMI Neck: Supple, No JVD No cervical lymphadenopathy CVS: Reg Rate, Normal S1,S2, No MGR Resp: Normal air entry, no ronchi/rales Abdomen: Soft, No tenderness, Normal Bowel Sounds, left scrotal erythema and tenderness, swelling Neuro: Normal Speech, Strength 5/5 b/l x 4 extremities, Sensation intact, CN III -XII NL, Reflexes 2+ Extremities: No cyanosis, pedal edema Current Medications: Current Medications Sig/Delia Start time Last Medication Dose Route Stop Time Status Admin Acetaminophen 650 MG Q4P PRN 11/21 2300 AC 11/22 PO 0030 Ampicillin Sodium/ 3,000 MG Q6H 11/22 0400 AC 11/22 Sulbactam Sodium IV 0527 Sodium Chloride 100 ML Ampicillin Sodium/ 0 .STK-MED ONE 11/21 2158 DC Sulbactam Sodium .ROUTE Ampicillin Sodium/ 3,000 MG ONCE ONE 11/21 1999 DC 11/21 Sulbactam Sodium IV 11/21 Sodium Chloride 100 ML Docusate Sodium 100 MG DAILY NEEDED PRN 11/22 0030 AC PO Heparin Sodium 5,000 UNIT Q8 11/22 06 AC (Porcine) SC Hydromorphone HCl 0 .STK-MED ONE 11/21 2056 DC .ROUTE Hydromorphone HCl 1 MG ONCE ONE 11/21 2030 DC 11/21 IV 11/21 Hydromorphone HCl 0 .STK-MED ONE 11/21 1937 DC .ROUTE Hydromorphone HCl 1 MG ONCE ONE 11/21 193 DC 11/21 IV 11/21 Non-Formulary 0 SEE ADMIN CRITERIA 11/22 14 DC Medication ANY Omeprazole 40 MG DAILY AC 11/21 2300 AC 11/22 PO 0525 Ondansetron HCl 4 MG Q6P PRN 11/22 0115 AC IV Ondansetron HCl 0 .STK-MED ONE 11/21 1937 DC .ROUTE Ondansetron HCl 4 MG ONCE ONE 11/21 1929 DC 11/21 IV 11/21 1930 194 Oxycodone/ 1 TAB Q6P PRN 11/22 0330 AC Acetaminophen PO Oxycodone/ 1 TAB Q6P PRN 11/21 2300 DC Acetaminophen PO Polyethylene Glycol 17 GM DAILY 11/22 1000 AC PO Senna/Docusate Sodium 1 TAB BID 11/22 0015 AC PO Sodium Chloride 1,000 ML .Q10H 11/21 2300 AC 11/22 IV 0030 Sodium Chloride 1,000 ML BOLUS ONE 11/21 2130 DC 11/21 IV 11/21 2228 2332 Sodium Chloride 1,000 ML BOLUS ONE 11/21 193 DC 11/21 IV 11/21 Last 24 Hrs of Lab/Dheeraj Results Last 24 Hrs of Labs/Mics: Laboratory Tests 11/22/16 0130: Urine Opiates Screen 1767.00, Methadone Screen 45, Barbiturate Screen < 60, Ur Phencyclidine Scrn < 6.00, Amphetamines Screen 192, U Benzodiazepines Scrn 793 H, Urine Cocaine Screen 71, Urine Cannabis Screen 69.80 H, Urine Color YEL, Urine Clarity CLEAR, Urine pH 5.5, Ur Specific [place] >= 1.030, Urine Protein NEG, Urine Ketones TRACE H, Urine Nitrite NEG, Urine Bilirubin NEG@ICTO, Urine Urobilinogen 0.2, Ur Leukocyte Esterase NEG, Ur Microscopic EXAM NOT REQUIRED, Urine Hemoglobin NEG, Urine Glucose NEG 11/21/161809: Anion Gap 25 H, Estimated GFR 31 L, BUN/Creatinine Ratio 18.3, Glucose 121 H, Lactic Acid 1.6, Calcium 10.9 H, Total Bilirubin 0.7, AST 32, ALT 41, Alkaline Phosphatase 97, Total Protein 10.3 H, Albumin 5.4 H, Globulin 4.9 H, Albumin/ Globulin Ratio 1.1, CBC w Diff NO MAN DIFF REQ, RBC 6.17 H, MCV 84.6, MCH 27.8, RDW 14.1, MPV 9.0, Gran % 75.4 H, Lymphocytes % 18.5 L, Monocytes % 5.7, Eosinophils % 0.1, Basophils % 0.3, Absolute Granulocytes 12.4 H, Absolute Lymphocytes 3.0, Absolute Monocytes 0.9 H, Absolute Eosinophils 0, Absolute Basophils 0.1, PUBS MCHC 32.9 L Microbiology 11/22 013 URINE ROUT: Urine Culture - RECD 11/21 2142 BLOOD: Blood Culture - RECD 11/21 1809 BLOOD: Blood Culture - RECD Assessment/Plan Assessment: Is a middle-aged man with history of bipolar disease (discontinued all medications recently), is being evaluated for left scrotal swelling (failed outpatient therapy) 3 days, nausea, several episodes of vomiting. At the time of admission, vitals were stable, temperature 98.5, pulse rate 106, respiratory 20, blood pressure 122/78, pulse ox 99% on room air. Laboratory findings indicated leukocytosis W BC 16.4, hemoglobin 17.1, hematocrit 52.2, platelet count 544-all indicating dehydration. Serum creatinine 2.3, BUN 42. Admission diagnosis: #1 dehydration secondary to vomiting #2 left scrotal swelling Below is the problem list and plan: #1 left scrotal swelling-restart antibiotics, Unasyn. Follow WBC and vitals closely. No imaging required at this time. Urology consult. As per urology, plan to take the patient to the OR on Wednesday. #2 dehydration-normal saline. Serum creatinine normalized. Encouraged by mouth intake. U tox positive for benzodiazepines and cannabis. Benzodiazepines and drug use could've constipated to decreased by mouth intake. #3 pain management-Percocet, but decrease the frequency to every 8. #4 mental health-bipolar disorder. Patient declines all medications. Restart medications in the a.m., after speaking to psychiatrist. Reevaluate in the a.m. #5 DVT prophylaxis-heparin subcutaneous and Alps. Problem List: 1. Acute kidney injury 2. Benzodiazepine abuse 3. Marijuana abuse Pain Ratin Pain Location: Left scrotum Pain Goal: Pain 4 or less Pain Plan: Percocet Tomorrow's Labs & Rationales: Basic electrolyte panel-to monitor for serum creatinine. Consulting Request: Consulting Specialty: Urology
[2016-11-22 08:17] VITALS: BP 128/66
[2016-11-22 08:41] LABS: ABSOLUTE BASOPHIL COUNT 0 /CUMM (0.0-0.2); ABSOLUTE EOSINOPHIL COUNT 0.1 /CUMM (0.0-0.7); ABSOLUTE GRANULOCYTE CT 7.2 /CUMM (1.4-6.5); ABSOLUTE LYMPH COUNT 3.4 /CUMM (1.2-3.4); ABSOLUTE MONOCYTE COUNT 1.2 /CUMM (0.10-0.60); BASOPHIL % 0.4 % (0.0-2.0); GRANULOCYTE % 60.2 % (42.2-75.2); MEAN CORPUSCULAR HGB 28.4 PG (27.0-31.0); MEAN CORPUSCULAR HGB CONC 33.3 G/DL (33.0-37.0); MEAN CORPUSCULAR VOLUME 85.4 FL (80.0-94.0); MEAN PLATELET VOLUME 9.3 FL (7.4-10.4); PLATELET COUNT 389 /CUMM (130-400); RBC DISTRIBUTION WIDTH 14.3 % (11.5-14.5); RED BLOOD CELL CT 5.04 /CUMM (4.70-6.10)
--- NOTE | 2016-11-22 12:48 | Admission Certification ---
Admission Certification Certification Statement - As attending physician, I certify that at the time of - admission, based on clinical presentation, severity of - symptoms, need for further diagnostic testing and - therapeutic interventions, and risk of adverse outcomes - without in-hospital treatment, in my clinical assessment, - this patient requires an acute hospital stay for a minimum - of two nights or longer. I have also considered psychsocial - factors such as support system, advanced age, financial - issues, cognitive issues, and failed out-patient treatments, - past re-admission history, safety of patient, and lack of - compliance as applicable. Specific rationale supporting this admission is: Acute epididymitis
--- NOTE | 2016-11-22 12:53 | PN- Att Addend ---
Attending Addendum Attending Brief Note Patient complains of persistent scrotal pain and swelling General Appearance: Alert, No Acute Distress Skin: Grossly normal HEENT: PEERLA Neck: Supple, No JVD Cardiovascular: Regular Rate, Normal S1, Normal S2, No Murmurs Lungs: Clear to Auscultation, Normal Air Movement Abdomen: Distended left scrotal, tenderness Neurological: Normal Speech, Strength at 5/5 X4 Ext, Cranial Nerves 3-12 NL, Reflexes 2+ Extremities: No Clubbing, No Cyanosis, No Edema Vascular: Normal Pulses Assessment 46-year-old history of bipolar recently discharged with prolonged antibiotics for acute epididymitis/orchitis on Augmentin failed outpatient oral antibiotic treatment secondary to adverse reaction to Augmentin with nausea and vomiting. He returns with persistent testicular discomfort and currently on IV antibiotics. Patient will need surgical exploration and likely aspiration of hydrocele with culture. Acute kidney injury on admission now resolved. Plan Continue IV Unasyn Blood cultures Check UA and culture Urology consult Minimal pain medications Continue all home meds Strict constipation regimen DVT prophylaxis Current Medications Sig/Delia Start time Last Medication Dose Route Stop Time Status Admin Acetaminophen 650 MG .STK-MED ONE 11/22 0026 DC PO 11/22 0027 Acetaminophen 650 MG Q4P PRN 11/21 2300 AC 11/22 PO 0030 Ampicillin Sodium/ 3,000 MG Q6H 11/22 0400 AC 11/22 Sulbactam Sodium IV 0941 Sodium Chloride 100 ML Ampicillin Sodium/ 0 .STK-MED ONE 11/21 2159 DC Sulbactam Sodium .ROUTE Ampicillin Sodium/ 3,000 MG ONCE ONE 11/21 1999 DC 11/21 Sulbactam Sodium IV 11/21 2028 2205 Sodium Chloride 100 ML Docusate Sodium 100 MG DAILY NEEDED PRN 11/22 0030 AC PO Heparin Sodium 5,000 UNIT Q8 11/22 0600 AC (Porcine) SC Hydromorphone HCl 0 .STK-MED ONE 11/21 2056 DC .ROUTE Hydromorphone HCl 1 MG ONCE ONE 11/21 2029 DC 11/21 IV 11/21 Hydromorphone HCl 0 .STK-MED ONE 11/21 1937 DC .ROUTE Hydromorphone HCl 1 MG ONCE ONE 11/21 1929 DC 11/21 IV 11/21 Non-Formulary 0 SEE ADMIN CRITERIA 02/26 0015 DC Medication ANY Omeprazole 40 MG DAILY AC 11/21 2299 AC 11/22 PO 0525 Ondansetron HCl 4 MG Q6P PRN 11/22 0115 AC IV Ondansetron HCl 0 .STK-MED ONE 11/21 1937 DC .ROUTE Ondansetron HCl 4 MG ONCE ONE 11/21 1929 DC 11/21 IV 11/21 Oxycodone/ 1 TAB Q6P PRN 11/22 0330 AC 11/22 Acetaminophen PO 0941 Oxycodone/ 1 TAB Q6P PRN 11/21 2299 DC Acetaminophen PO Polyethylene Glycol 17 GM DAILY 11/22 1000 AC 11/22 PO 0941 Senna/Docusate Sodium 1 TAB BID 11/22 001 AC 11/22 PO 0942 Sodium Chloride 1,000 ML .Q10H 11/21 230 AC 11/22 IV 0941 Sodium Chloride 1,000 ML BOLUS ONE 11/21 2129 DC 11/21 IV 11/21 Sodium Chloride 1,000 ML BOLUS ONE 11/21 1929 DC 11/21 IV 11/21 Laboratory Tests 11/22 11/22 0705 0130 Chemistry Sodium (137 - 145 mmol/L) 136 L Potassium (3.5 - 5.1 mmol/L) 4.1 Chloride (98 - 107 mmol/L) 97 L Carbon Dioxide (22 - 30 mmol/L) 28 Anion Gap (5 - 16) 12 BUN (9 - 20 mg/dL) 32 H Creatinine (0.7 - 1.2 mg/dL) 1.0 Estimated GFR (>60 ml/min) > 60 BUN/Creatinine Ratio (7 - 25 %) 32.0 H Hematology CBC w Diff NO MAN DIFF REQ WBC (4.8 - 10.8 /CUMM) 12.0 H RBC (4.70 - 6.10 /CUMM) 5.04 Hgb (14.0 - 18.0 G/DL) 14.3 Hct (42 - 52 %) 43.0 MCV (80.0 - 94.0 FL) 85.4 MCH (27.0 - 31.0 PG) 28.4 RDW (11.5 - 14.5 %) 14.3 Plt Count (130 - 400 /CUMM) 389 MPV (7.4 - 10.4 FL) 9.3 Gran % (42.2 - 75.2 %) 60.2 Lymphocytes % (20.5 - 51.1 %) 28.5 Monocytes % (1.7 - 9.3 %) 9.9 H Eosinophils % (0 - 5 %) 1.0 Basophils % (0.0 - 2.0 %) 0.4 Absolute Granulocytes (1.4 - 6.5 /CUMM) 7.2 H Absolute Lymphocytes (1.2 - 3.4 /CUMM) 3.4 Absolute Monocytes (0.10 - 0.60 /CUMM) 1.2 H Absolute Eosinophils (0.0 - 0.7 /CUMM) 0.1 Absolute Basophils (0.0 - 0.2 /CUMM) 0 PUBS MCHC (33.0 - 37.0 G/DL) 33.3 Toxicology Urine Opiates Screen (>2000 NG/ML) 1767.00 Methadone Screen (>300 NG/ML) 45 Barbiturate Screen (>200 NG/ML) < 60 Ur Phencyclidine Scrn (>25 NG/ML) < 6.00 Amphetamines Screen (>1000 NG/ML) 192 U Benzodiazepines Scrn (>200 NG/ML) 793 H Urine Cocaine Screen (>300 NG/ML) 71 Urine Cannabis Screen (>50 NG/ML) 69.80 H Urines Urine Color (YEL,AMB,STR) YEL Urine Clarity (CLEAR) CLEAR Urine pH (5.0 - 8.0) 5.5 Ur Specific [place] (1.001 - 1.035) >= 1.030 Urine Protein (NEG,<30 MG/DL) NEG Urine Ketones (NEG) TRACE H Urine Nitrite (NEG) NEG Urine Bilirubin (NEG) NEG@ICTO Urine Urobilinogen (0.1 - 1.0 EU/dl) 0.2 Ur Leukocyte Esterase (NEG) NEG Ur Microscopic EXAM NOT REQUIRED Urine Hemoglobin (NEG) NEG Urine Glucose (N MG/DL) NEG 11/210 Chemistry Sodium (137 - 145 mmol/L) 137 Potassium (3.5 - 5.1 mmol/L) 4.6 Chloride (98 - 107 mmol/L) 88 L Carbon Dioxide (22 - 30 mmol/L) 24 Anion Gap (5 - 16) 25 H BUN (9 - 20 mg/dL) 42 H Creatinine (0.7 - 1.2 mg/dL) 2.3 H Estimated GFR (>60 ml/min) 31 L BUN/Creatinine Ratio (7 - 25 %) 18.3 Glucose (65 - 99 mg/dL) 121 H Lactic Acid (0.7 - 2.1 mmol/L) 1.6 Calcium (8.4 - 10.2 mg/dL) 10.9 H Total Bilirubin (0.2 - 1.3 mg/dL) 0.7 AST (17 - 59 U/L) 32 ALT (21 - 72 U/L) 41 Alkaline Phosphatase (< 127 U/L) 97 Total Protein (6.3 - 8.2 g/dL) 10.3 H Albumin (3.5 - 5.0 g/dL) 5.4 H Globulin (1.9 - 4.2 gm/dL) 4.9 H Albumin/Globulin Ratio (1.1 - 2.2 %) 1.1 Hematology CBC w Diff NO MAN DIFF REQ WBC (4.8 - 10.8 /CUMM) 16.4 H RBC (4.70 - 6.10 /CUMM) 6.17 H Hgb (14.0 - 18.0 G/DL) 17.1 Hct (42 - 52 %) 52.2 H MCV (80.0 - 94.0 FL) 84.6 MCH (27.0 - 31.0 PG) 27.8 RDW (11.5 - 14.5 %) 14.1 Plt Count (130 - 400 /CUMM) 544 H MPV (7.4 - 10.4 FL) 9.0 Gran % (42.2 - 75.2 %) 75.4 H Lymphocytes % (20.5 - 51.1 %) 18.5 L Monocytes % (1.7 - 9.3 %) 5.7 Eosinophils % (0 - 5 %) 0.1 Basophils % (0.0 - 2.0 %) 0.3 Absolute Granulocytes (1.4 - 6.5 /CUMM) 12.4 H Absolute Lymphocytes (1.2 - 3.4 /CUMM) 3.0 Absolute Monocytes (0.10 - 0.60 /CUMM) 0.9 H Absolute Eosinophils (0.0 - 0.7 /CUMM) 0 Absolute Basophils (0.0 - 0.2 /CUMM) 0.1 PUBS MCHC (33.0 - 37.0 G/DL) 32.9 L Vital Signs Date Time Temp Pulse Resp B/P Pulse O2 O2 Flow FiO2 Ox Delivery Rate 11/22 0817 99.0 88 20 128/66 95 Room Air 11/22 0127 98.5 106 20 122/78 99 Room Air 11/21 2333 98.4 108 18 144/92 96 Room Air 11/21 2110 98.1 113 20 132/96 95 Room Air 11/21 1949 99.1 116 18 132/106 93 Room Air 11/21 194 Room Air 11/21 174 97.1 133 26 145/94 98 Room Air
--- NOTE | 2016-11-22 14:58 | Cons- Psychiatry ---
Psychiatric Consult Date of Consult: 11/22/16 Reason for Consult: "stopped all the psychiatric meds; hx of bipolar disorder" History of Present Illness: Per medicine note, 46-year-old man with past medical history of bipolar disorder , recently discharged from [facility] on after getting treatment for acute epididymoorchitis with IV Unasyn and discharged on by mouth Augmentin. Patient presented to ER with complaint of intractable nausea and vomiting. According to patient he started taking his Augmentin on day of discharge and relate all his symptoms to Augmentin. He also reports having chills, diaphoresis and palpitations. His appetite was poor and he felt really dehydrated. He is also complaining of soreness in epigastric area. Denies any chest pain or discomfort, dizziness or lightheadedness. He also states loosing at least 20 pounds since his discharge. According to patient his left scrotal swelling is still there and he feels that its soft now but still sore. He also claims that since admission he has not passed his urine. He feels constipated and his last bowel movement was on day of discharge November 17. He denies smoking, drinking alcohol or use of recreational drugs. He only took Percocet that he was prescribed upon discharge. On exam today, pt notes that he does indeed have dx of Bipolar disorder and stopped his psych meds a few weeks to 1.5 months ago. He feels that they are only minimially helpful and does not like taking them. He does not wish to restart taking them. He believes that outpt psychiatrist, Dr. Sharath Fleming of [place] know that he is off meds but has not seen him in some time. He does feels that the meds may help his sleep but "then he is too sleepy and tired all day." Pt notes that his mood is lower than baseline and may be "a little depressed." He endorsed chronic daily passive SI "for the past 25 years" since his twin brother comitted suicide. He thinks about shooting himself daily. He does not have a gun at home. He feels that although he thinks about it, "its not the answer, I can't do it, because thats not going to solve anything." He notes that he had more active SI in ?2015 or early 2015, he thinks around the time of his fathers . Pt is unemployed though trained as [employer] (highest level in [place]), "I'm not ready to get things together." He notes last manic episode with Jul 2016. He was not hospitalized for this. He denies psychotic or trauma-related sx. No alcohol use for the past three years. No LSD, muschrooms, cocaine, or valium use for "a while" (pt would not specify in any more detail.) Utox + of mj and BDZ. He was adamant that he did not want to restart medications, even one or two at lower levels. He feels that not helpful and not neccessary. He did give verbal permission for Primary Team or Psych to contact Psychiatrist, Dr. Sharath Kelley, , "but I'm not going to start the meds again." Allergies: Coded Allergies: No Known Allergies (11/21/16) Current Medications: Current Medications Sig/Delia Start time Last Medication Dose Route Stop Time Status Admin Acetaminophen 650 MG .STK-MED ONE 11/22 0026 DC PO 11/22 0027 Acetaminophen 650 MG Q4P PRN 11/21 2300 AC 11/22 PO 0030 Ampicillin Sodium/ 3,000 MG Q6H 11/22 0400 AC 11/22 Sulbactam Sodium IV 0941 Sodium Chloride 100 ML Ampicillin Sodium/ 0 .STK-MED ONE 11/21 2158 DC Sulbactam Sodium .ROUTE Ampicillin Sodium/ 3,000 MG ONCE ONE 11/21 1999 DC 11/21 Sulbactam Sodium IV 11/21 2028 2205 Sodium Chloride 100 ML Docusate Sodium 100 MG DAILY NEEDED PRN 11/22 0030 AC PO Heparin Sodium 5,000 UNIT Q8 11/22 0600 AC (Porcine) SC Hydromorphone HCl 0 .STK-MED ONE 11/21 2056 DC .ROUTE Hydromorphone HCl 1 MG ONCE ONE 11/21 2029 DC 11/21 IV 11/21 Hydromorphone HCl 0 .STK-MED ONE 11/21 1937 DC .ROUTE Hydromorphone HCl 1 MG ONCE ONE 11/21 1929 DC 11/21 IV 11/21 Non-Formulary 0 SEE ADMIN CRITERIA 11/22 0015 DC Medication ANY Omeprazole 40 MG DAILY AC 11/21 2300 AC 11/22 PO 0525 Ondansetron HCl 4 MG Q6P PRN 11/22 0115 AC IV Ondansetron HCl 0 .STK-MED ONE 11/21 1937 DC .ROUTE Ondansetron HCl 4 MG ONCE ONE 11/21 1929 DC 11/21 IV 11/21 Oxycodone/ 1 TAB Q8P PRN 11/22 1800 AC Acetaminophen PO Oxycodone/ 1 TAB Q6P PRN 11/22 0330 DC 11/22 Acetaminophen PO 0941 Oxycodone/ 1 TAB Q6P PRN 11/21 2300 DC Acetaminophen PO Polyethylene Glycol 17 GM DAILY 11/22 1000 AC 11/22 PO 0941 Senna/Docusate Sodium 1 TAB BID 11/22 0015 AC 11/22 PO 0942 Sodium Chloride 1,000 ML .Q10H 11/21 2300 AC 11/22 IV 0941 Sodium Chloride 1,000 ML BOLUS ONE 11/21 2129 DC 11/21 IV 11/21 2228 233 Sodium Chloride 1,000 ML BOLUS ONE 11/21 1929 DC 11/21 IV 11/21 Past History Past Medical History Neurological: NONE EENT: NONE Cardiovascular: NONE Respiratory: NONE Gastrointestinal: NONE Hepatic: NONE Renal: NONE Musculoskeletal: INFECTION L TESTICLE RUPTURED DISK Psychiatric: bipolar disease Endocrine: NONE Blood Disorders: NONE Cancer(s): NONE ELECTROPHYSIOLOGY NURSE PRACTITIONER/Reproductive: NONE Past Surgical History Surgical History: spinal fusion Psychiatric Treatment History Psych Treatment Psychiatric Treatment Yes Inpatient Treatment No Outpatient Treatment Yes (Dr. Kelley) Location of Treatment [place] Reason for Treatment Bipolar disorder Dates of Treatment last a few weeks ago Response to Treatment positive overall Diagnosis: Bipolar disorder Risk Factors: chronic/serious med cond., high anxiety/distress, history of suicide atmpts, substance abuse, isolate/no social support, lives alone, male, limited support Substance Use/Abuse History Drug Use/Abuse Substances Used/Abused Yes Substance Used/Abused Other (list in comments) (MJ, Coke, LSD, shrooms, valium) First Use as a young adult Last Used fee weeks ago How much used/taken occasionally Route of use denied IVDU Substance Abuse Treatment Substance Abuse Treatment Past Substance Abuse [place] No Assessment/Plan Mental Status Orientation: Person, Place, Situation Affect: Constricted (slightly irritable) Speech: WNL Neuro-vegetative: Sleep Disturbance Mental Status Exam: MSE Appears as stated age. Cooperative behavior but guarded at times, appropriate eye contact. Nl speech rate and prosody. No psychomotor retardation or agitation. Mood I'm OK Affect slightly irritable, sad, constricted, appropriate, non-liable. Linear and goal directed thought process. Denies SI or HI. Does not appear to be responding to internal stimuli. Denies AVHs, paranoia, or delusions. I/J: limited Lab Results: Laboratory Tests 11/22 11/22 0705 0130 Chemistry Sodium (137 - 145 mmol/L) 136 L Potassium (3.5 - 5.1 mmol/L) 4.1 Chloride (98 - 107 mmol/L) 97 L Carbon Dioxide (22 - 30 mmol/L) 28 Anion Gap (5 - 16) 12 BUN (9 - 20 mg/dL) 32 H Creatinine (0.7 - 1.2 mg/dL) 1.0 Estimated GFR (>60 ml/min) > 60 BUN/Creatinine Ratio (7 - 25 %) 32.0 H Hematology CBC w Diff NO MAN DIFF REQ WBC (4.8 - 10.8 /CUMM) 12.0 H RBC (4.70 - 6.10 /CUMM) 5.04 Hgb (14.0 - 18.0 G/DL) 14.3 Hct (42 - 52 %) 43.0 MCV (80.0 - 94.0 FL) 85.4 MCH (27.0 - 31.0 PG) 28.4 RDW (11.5 - 14.5 %) 14.3 Plt Count (130 - 400 /CUMM) 389 MPV (7.4 - 10.4 FL) 9.3 Gran % (42.2 - 75.2 %) 60.2 Lymphocytes % (20.5 - 51.1 %) 28.5 Monocytes % (1.7 - 9.3 %) 9.9 H Eosinophils % (0 - 5 %) 1.0 Basophils % (0.0 - 2.0 %) 0.4 Absolute Granulocytes (1.4 - 6.5 /CUMM) 7.2 H Absolute Lymphocytes (1.2 - 3.4 /CUMM) 3.4 Absolute Monocytes (0.10 - 0.60 /CUMM) 1.2 H Absolute Eosinophils (0.0 - 0.7 /CUMM) 0.1 Absolute Basophils (0.0 - 0.2 /CUMM) 0 PUBS MCHC (33.0 - 37.0 G/DL) 33.3 Toxicology Urine Opiates Screen (>2000 NG/ML) 1767.00 Methadone Screen (>300 NG/ML) 45 Barbiturate Screen (>200 NG/ML) < 60 Ur Phencyclidine Scrn (>25 NG/ML) < 6.00 Amphetamines Screen (>1000 NG/ML) 192 U Benzodiazepines Scrn (>200 NG/ML) 793 H Urine Cocaine Screen (>300 NG/ML) 71 Urine Cannabis Screen (>50 NG/ML) 69.80 H Urines Urine Color (YEL,AMB,STR) YEL Urine Clarity (CLEAR) CLEAR Urine pH (5.0 - 8.0) 5.5 Ur Specific [place] (1.001 - 1.035) >= 1.030 Urine Protein (NEG,<30 MG/DL) NEG Urine Ketones (NEG) TRACE H Urine Nitrite (NEG) NEG Urine Bilirubin (NEG) NEG@ICTO Urine Urobilinogen (0.1 - 1.0 EU/dl) 0.2 Ur Leukocyte Esterase (NEG) NEG Ur Microscopic EXAM NOT REQUIRED Urine Hemoglobin (NEG) NEG Urine Glucose (N MG/DL) NEG 11/21 1810 Chemistry Sodium (137 - 145 mmol/L) 137 Potassium (3.5 - 5.1 mmol/L) 4.6 Chloride (98 - 107 mmol/L) 88 L Carbon Dioxide (22 - 30 mmol/L) 24 Anion Gap (5 - 16) 25 H BUN (9 - 20 mg/dL) 42 H Creatinine (0.7 - 1.2 mg/dL) 2.3 H Estimated GFR (>60 ml/min) 31 L BUN/Creatinine Ratio (7 - 25 %) 18.3 Glucose (65 - 99 mg/dL) 121 H Lactic Acid (0.7 - 2.1 mmol/L) 1.6 Calcium (8.4 - 10.2 mg/dL) 10.9 H Total Bilirubin (0.2 - 1.3 mg/dL) 0.7 AST (17 - 59 U/L) 32 ALT (21 - 72 U/L) 41 Alkaline Phosphatase (< 127 U/L) 97 Total Protein (6.3 - 8.2 g/dL) 10.3 H Albumin (3.5 - 5.0 g/dL) 5.4 H Globulin (1.9 - 4.2 gm/dL) 4.9 H Albumin/Globulin Ratio (1.1 - 2.2 %) 1.1 Hematology CBC w Diff NO MAN DIFF REQ WBC (4.8 - 10.8 /CUMM) 16.4 H RBC (4.70 - 6.10 /CUMM) 6.17 H Hgb (14.0 - 18.0 G/DL) 17.1 Hct (42 - 52 %) 52.2 H MCV (80.0 - 94.0 FL) 84.6 MCH (27.0 - 31.0 PG) 27.8 RDW (11.5 - 14.5 %) 14.1 Plt Count (130 - 400 /CUMM) 544 H MPV (7.4 - 10.4 FL) 9.0 Gran % (42.2 - 75.2 %) 75.4 H Lymphocytes % (20.5 - 51.1 %) 18.5 L Monocytes % (1.7 - 9.3 %) 5.7 Eosinophils % (0 - 5 %) 0.1 Basophils % (0.0 - 2.0 %) 0.3 Absolute Granulocytes (1.4 - 6.5 /CUMM) 12.4 H Absolute Lymphocytes (1.2 - 3.4 /CUMM) 3.0 Absolute Monocytes (0.10 - 0.60 /CUMM) 0.9 H Absolute Eosinophils (0.0 - 0.7 /CUMM) 0 Absolute Basophils (0.0 - 0.2 /CUMM) 0.1 PUBS MCHC (33.0 - 37.0 G/DL) 32.9 L Diffential Diagnosis: Bipolar disorder, most recent mixed vs depressed PSD Impression: Pt with hx of Bipolar disorder with marked irritabilty on exam though noting passive unchanging SI for the past 25yrs with most recent more active SI four month ago. Although he is non-compliant with treatment that he may benefit from, at this time, is not active danger to self or others or gravely disabled. However, since baseline mood and affect are not clear, collateral from long-time outpatient provider would be helpful. Pt would benefit from re-engaging with treatment and restart at least a few of this medications though he is not open to this at this time. As patient not acutely sucidial or danger to others or gravely disabled, cannot force him to take meds involuntarily. - Collateral from Dr. Sharath Kelley, needed, pt gave verbal permission for providers to contact his outpatient providers. - Encourage pt to consider restarting at least some of this meds. - Psych consult to continue to follow. Thank you for the consult.
[2016-11-22 16:30] VITALS: BP 141/102
[2016-11-22 23:44] VITALS: BP 136/86
[2016-11-23 08:38] VITALS: BP 142/88
--- NOTE | 2016-11-23 09:11 | PN- Att Addend ---
Attending Addendum Attending Brief Note Patient complains of persistent scrotal pain and swelling General Appearance: Alert, No Acute Distress Skin: Grossly normal HEENT: PEERLA Neck: Supple, No JVD Cardiovascular: Regular Rate, Normal S1, Normal S2, No Murmurs Lungs: Clear to Auscultation, Normal Air Movement Abdomen: Distended left scrotal, tenderness Neurological: Normal Speech, Strength at 5/5 X4 Ext, Cranial Nerves 3-12 NL, Reflexes 2+ Extremities: No Clubbing, No Cyanosis, No Edema Vascular: Normal Pulses Assessment 46-year-old history of bipolar recently discharged with prolonged antibiotics for acute epididymitis/orchitis on Augmentin failed outpatient oral antibiotic treatment secondary to adverse reaction to Augmentin with nausea and vomiting. He returns with persistent testicular discomfort and currently on IV antibiotics. Patient will need surgical exploration and likely aspiration of hydrocele with cultures. Acute kidney injury on admission now resolved. Plan for OR in a.m. Plan Continue IV Unasyn Follow cultures Continue current pain meds Continue all home meds Strict constipation regimen DVT prophylaxis Current Medications Sig/Delia Start time Last Medication Dose Route Stop Time Status Admin Acetaminophen 650 MG .STK-MED ONE 11/23 0053 DC PO 11/23 0054 Acetaminophen 650 MG Q4P PRN 11/21 2300 AC 11/23 PO 0209 Ampicillin Sodium/ 3,000 MG Q6H 11/22 0400 AC 11/23 Sulbactam Sodium IV 0414 Sodium Chloride 100 ML Docusate Sodium 100 MG DAILY NEEDED PRN 11/22 0030 AC PO Heparin Sodium 5,000 UNIT Q8 11/22 0600 AC (Porcine) SC Melatonin 5 MG AT BEDTIME 11/23 2200 AC PO Omeprazole 40 MG DAILY AC 11/21 2300 AC 11/23 PO 0607 Ondansetron HCl 4 MG Q6P PRN 11/22 0115 AC IV Oxycodone/ 1 TAB Q8P PRN 11/22 1800 AC 11/23 Acetaminophen PO 0654 Oxycodone/ 1 TAB Q6P PRN 11/22 0330 DC 11/22 Acetaminophen PO 0941 Polyethylene Glycol 17 GM DAILY 11/22 1000 AC 11/22 PO 0941 Ramelteon 8 MG ONCE ONE 11/22 2230 DC 11/22 PO 11/22 2231 2307 Senna/Docusate Sodium 1 TAB BID 11/22 0015 AC 11/22 PO 0942 Laboratory Tests 11/23 0825 Chemistry Sodium Pending Potassium Pending Chloride Pending Carbon Dioxide Pending Anion Gap Pending BUN Pending Creatinine Pending BUN/Creatinine Ratio Pending Hematology CBC w Diff Pending WBC Pending RBC Pending Hgb Pending Hct Pending MCV Pending MCH Pending RDW Pending Plt Count Pending MPV Pending PUBS MCHC Pending Vital Signs Date Time Temp Pulse Resp B/P Pulse O2 O2 Flow FiO2 Ox Delivery Rate 11/23 0838 98.0 80 18 142/88 98 Room Air 11/22 2344 96.0 95 20 136/86 97 Room Air 11/22 1630 98.3 91 19 141/102 98 Room Air
[2016-11-23 09:27] LABS: ABSOLUTE BASOPHIL COUNT 0 /CUMM (0.0-0.2); ABSOLUTE EOSINOPHIL COUNT 0.1 /CUMM (0.0-0.7); ABSOLUTE GRANULOCYTE CT 5.6 /CUMM (1.4-6.5); ABSOLUTE MONOCYTE COUNT 0.9 /CUMM (0.10-0.60); BASOPHIL % 0.3 % (0.0-2.0); EOSINOPHIL % 0.9 % (0-5); GRANULOCYTE % 57.7 % (42.2-75.2); MEAN CORPUSCULAR HGB 28.9 PG (27.0-31.0); MEAN CORPUSCULAR HGB CONC 33.8 G/DL (33.0-37.0); MEAN CORPUSCULAR VOLUME 85.5 FL (80.0-94.0); MEAN PLATELET VOLUME 9.5 FL (7.4-10.4); PLATELET COUNT 294 /CUMM (130-400); RBC DISTRIBUTION WIDTH 13.8 % (11.5-14.5); RED BLOOD CELL CT 4.41 /CUMM (4.70-6.10); WHITE BLOOD CELL COUNT 9.7 /CUMM (4.8-10.8)
[2016-11-23 09:55] LABS: HEMATOCRIT 37.7 % (42-52)
--- NOTE | 2016-11-23 11:55 | PN- Housestaff ---
Subjective Follow-up For: Dehydration Urinary retention Epididymoorchitis Subjective: Patient comfortable this morning. Did not have any complaints. Pain improved compared to yesterday. He remained afebrile overnight. Blood pressure stable. Review of Systems Constitutional: Reports: see HPI. Objective Last 24 Hrs of Vital Signs/I&O Vital Signs Date Time Temp Pulse Resp B/P Pulse O2 O2 Flow FiO2 Ox Delivery Rate 11/23 1629 98.4 83 18 128/68 98 Room Air 11/23 0838 98.0 80 18 142/88 98 Room Air 11/22 2344 96.0 95 20 136/86 97 Room Air Intake & Output 11/23 1600 11/23 0800 11/23 0000 Intake Total 1450 900 Output Total 500 350 Balance 950 550 Intake, IV 450 300 Intake, Oral 1000 600 Number 3 Bowel Movements Output, Urine 500 350 Patient 200 lb Weight Physical Exam General Appearance: No Acute Distress Other Physical Findings: General Exam: AAOx3, No acute distress, Skin: No rashes, no breakdown HEENT: PERRLA, EOMI Neck: Supple, No JVD No cervical lymphadenopathy CVS: Reg Rate, Normal S1,S2, No MGR Resp: Normal air entry, no ronchi/rales Abdomen: Soft, No tenderness, Normal Bowel Sounds, left scrotal swelling, erythematous, tender Neuro: Normal Speech, Strength 5/5 b/l x 4 extremities, Sensation intact, CN III -XII NL, Reflexes 2+ Extremities: No cyanosis, pedal edema Current Medications: Current Medications Sig/Delia Start time Last Medication Dose Route Stop Time Status Admin Acetaminophen 650 MG .STK-MED ONE 11/23 0053 DC PO 11/23 0054 Acetaminophen 650 MG Q4P PRN 11/21 230 AC 11/23 PO 0209 Ampicillin Sodium/ 3,000 MG Q6H 11/22 0400 AC 11/23 Sulbactam Sodium IV 1528 Sodium Chloride 100 ML Divalproex Sodium 500 MG BID 11/23 2199 AC PO Docusate Sodium 100 MG DAILY NEEDED PRN 11/22 0030 AC PO Heparin Sodium 5,000 UNIT Q8 11/22 0600 AC (Porcine) SC Melatonin 5 MG AT BEDTIME 11/23 2199 AC PO Omeprazole 40 MG DAILY AC 11/21 2300 AC 11/23 PO 0607 Ondansetron HCl 4 MG Q6P PRN 11/22 0115 AC IV Oxycodone/ 1 TAB Q8P PRN 11/22 1800 AC 11/23 Acetaminophen PO 0654 Patient Medication 1 ED .STK-MED ONE 11/23 1327 AR Teaching ED 11/23 1328 Polyethylene Glycol 17 GM DAILY 11/22 1000 AC 11/22 PO 0941 Ramelteon 8 MG ONCE ONE 11/22 2230 DC 11/22 PO 11/22 2230 2307 Senna/Docusate Sodium 1 TAB BID 11/22 0015 AC 11/22 PO 0942 Last 24 Hrs of Lab/Dheeraj Results Last 24 Hrs of Labs/Mics: Laboratory Tests 11/23/16 0825: Anion Gap 11, Estimated GFR > 60, BUN/Creatinine Ratio 28.3 H, CBC w Diff NO MAN DIFF REQ, RBC 4.41 L, MCV 85.5, MCH 28.9, RDW 13.8, MPV 9.5, Gran % 57.7, Lymphocytes % 31.5, Monocytes % 9.6 H, Eosinophils % 0.9, Basophils % 0.3, Absolute Granulocytes 5.6, Absolute Lymphocytes 3.0, Absolute Monocytes 0.9 H, Absolute Eosinophils 0.1, Absolute Basophils 0, PUBS MCHC 33.8, Valproic Acid < 10.0 L Assessment/Plan Assessment: Is a middle-aged man with history of bipolar disease (discontinued all medications recently), is being evaluated for left scrotal swelling (failed outpatient therapy) 3 days, nausea, several episodes of vomiting. Admission diagnosis: #1 dehydration secondary to vomiting #2 left scrotal swelling Below is the problem list and plan: #1 left scrotal swelling- Unasyn. Plan to discontinue antibiotics after speaking to Dr. [place]. Patient received more than adequate antibiotics in the last 2 weeks. Follow WBC and vitals closely. No imaging required at this time. Urology consult. As per urology, plan to take the patient to the OR on Wednesday. #2 dehydration-normal saline. Serum creatinine normalized. Encouraged by mouth intake. U tox positive for benzodiazepines and cannabis. #3 pain management-Percocet, but decrease the frequency to every 8. #4 mental health-bipolar disorder. Patient declines all medications. Restart medications in the a.m., after speaking to psychiatrist. Await recommendation from psychiatry. #5 DVT prophylaxis-heparin subcutaneous and Alps. Problem List: 1. Acute kidney injury 2. Epididymitis Pain Ratin Pain Location: left scrotum Pain Goal: Pain 4 or less Pain Plan: Percocet Tomorrow's Labs & Rationales: No labs necessary. Consulting Request: Consulting Specialty: Urology
--- NOTE | 2016-11-23 13:27 | PN- Psychiatry ---
Assessment/Plan Impression: The patient is minimizing his street drug usage, and not taking his psychotropic medications as ordered. He has a long history of self-medication, but states that he sought out Dr. Kelley several years ago for help. He had indicated that he wished to stop seeing Dr. Kelley, and agreed to come to OPS for an intake appointment. Per the patient, the MD does not take his insurance. The patient would be better served by coming to the Intensive Outpatient Dual-[facility] Program, due to his desire to stop using drugs and his bipolar d/o. Urine toxicology was positive for benzos and cannabis. I spoke briefly with the patient's psychiatrist, Dr. Sharath Kelley, [phone], today with the patient's written permission. He reports that the patient was receiving medication and psychotherapies at his office in [place]. He is in agreement with our tentative plan to have the patient attend the IOP program, and then return to the MD's care. He is reporting poor sleep, and none last night, due to pain from his testicular infection and environmental noise. He had been on several sedating psychotropic medications, which are being held now, he may derive some limited benefit from melatonin for insomnia. The patient presents with some symptoms of wyatt, and would benefit from restarting Depakote at a lower level. Dr. Gonzalez has indicated his approval. His last dose was on 11/17/16 at discharge from , but I will add-on a valproic acid level to today's draw. Suggestion: 1. Consider melatonin 5 mg PO at bedtime for insomnia. 2. I will start Depakote 500 mg PO 2X/day beginning this evening. a. Hold if valproic acid level greater than 80 mcg/mL, unless approved by psychiatry. 3. I will order a valproic level check for the fourth morning after restart of Depakote at trough. If the patient will discharge before this, please provide a lab slip or lab order with results to myself and Dr. Kelley. 4. The patient may be agreeable to [facility]. We will discuss this again with him post-surgery. If he agrees, then after graduation from this program, then the patient may return to the care of Dr. Kelley for psychiatry. We will continue to follow along with you. Jose Blackwell APRN, Pager [phone] Subjective Subjective: I visited the patient today, 11/23/16, at 1025, in room 210-2. He is sleeping, but easily arousable. He is oriented to person, date, place, but note day ("Wednesday".) He denies AVH and presents no ramona delusions. He denies current suicidal or homicidal ideation, but reports that when his father 3 years ago, he had ideation, but no plan or intent. He rates his current depressive symptoms as 7-9/10; anxiety as "high, but not 10." 10/10 would be the most severe in either case. He reports that he stopped drinking without assistance three years ago after his father's . He reports that he has a past history of heroin, cocaine, hallucinogenics, which he has not used lately. He endorses racing thoughts, periods of time when he did not require sleep and impulsive buying. He states that his drug and alcohol use was an attempt at self -medication to relieve symptoms. He has a recent history of buying roxycodone on the street, and then, per his report, weaned himself off with street-purchased Suboxone. The patient denies any current opiate withdrawal symptoms, including GI cramps, muscle cramps, sweating, and is receiving Percocet 5/325 PO every 8 hours as needed. He states that he has been seeing Dr. Kelley, psychiatrist, for "two or three years." He feels that the medications are making him too sleepy, but he had not contacted the MD to report this, but had stopped taking them. 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 He is unmarried, "I cannot make a relationship last longer than a year." His sister lives in [place]. Objective Last 24 Hrs of Vital Signs/I&O Vital Signs Date Time Temp Pulse Resp B/P Pulse O2 O2 Flow FiO2 Ox Delivery Rate 11/23 0838 98.0 80 18 142/88 98 Room Air 11/22 2344 96.0 95 20 136/86 97 Room Air 11/22 1630 98.3 91 19 141/102 98 Room Air Intake & Output 11/23 1600 11/23 0800 11/23 0000 Intake Total 1450 900 Output Total 500 350 Balance 950 550 Intake, IV 450 300 Intake, Oral 1000 600 Number 3 Bowel Movements Output, Urine 500 350 Current Medications: Current Medications Sig/Delia Start time Last Medication Dose Route Stop Time Status Admin Acetaminophen 650 MG .STK-MED ONE 11/23 0053 DC PO 11/23 0054 Acetaminophen 650 MG Q4P PRN 11/21 2300 AC 11/23 PO 0209 Ampicillin Sodium/ 3,000 MG Q6H 11/22 0400 AC 11/23 Sulbactam Sodium IV 1114 Sodium Chloride 100 ML Docusate Sodium 100 MG DAILY NEEDED PRN 11/22 0030 AC PO Heparin Sodium 5,000 UNIT Q8 11/22 0600 AC (Porcine) SC Melatonin 5 MG AT BEDTIME 11/23 2200 AC PO Omeprazole 40 MG DAILY AC 11/21 2300 AC 11/23 PO 0607 Ondansetron HCl 4 MG Q6P PRN 11/22 0115 AC IV Oxycodone/ 1 TAB Q8P PRN 11/22 1800 AC 11/23 Acetaminophen PO 0654 Oxycodone/ 1 TAB Q6P PRN 11/22 0330 DC 11/22 Acetaminophen PO 0941 Polyethylene Glycol 17 GM DAILY 11/22 1000 AC 11/22 PO 0941 Ramelteon 8 MG ONCE ONE 11/22 2230 DC 11/22 PO 11/22 2231 2307 Senna/Docusate Sodium 1 TAB BID 11/22 0015 AC 11/22 PO 0942 Results Last 24 Hrs of Labs/Mics: Laboratory Tests 11/23 0825 Chemistry Sodium (137 - 145 mmol/L) 138 Potassium (3.5 - 5.1 mmol/L) 4.1 Chloride (98 - 107 mmol/L) 102 Carbon Dioxide (22 - 30 mmol/L) 25 Anion Gap (5 - 16) 11 BUN (9 - 20 mg/dL) 17 Creatinine (0.7 - 1.2 mg/dL) 0.6 L Estimated GFR (>60 ml/min) > 60 BUN/Creatinine Ratio (7 - 25 %) 28.3 H Hematology CBC w Diff NO MAN DIFF REQ WBC (4.8 - 10.8 /CUMM) 9.7 RBC (4.70 - 6.10 /CUMM) 4.41 L Hgb (14.0 - 18.0 G/DL) 12.7 L Hct (42 - 52 %) 37.7 L MCV (80.0 - 94.0 FL) 85.5 MCH (27.0 - 31.0 PG) 28.9 RDW (11.5 - 14.5 %) 13.8 Plt Count (130 - 400 /CUMM) 294 MPV (7.4 - 10.4 FL) 9.5 Gran % (42.2 - 75.2 %) 57.7 Lymphocytes % (20.5 - 51.1 %) 31.5 Monocytes % (1.7 - 9.3 %) 9.6 H Eosinophils % (0 - 5 %) 0.9 Basophils % (0.0 - 2.0 %) 0.3 Absolute Granulocytes (1.4 - 6.5 /CUMM) 5.6 Absolute Lymphocytes (1.2 - 3.4 /CUMM) 3.0 Absolute Monocytes (0.10 - 0.60 /CUMM) 0.9 H Absolute Eosinophils (0.0 - 0.7 /CUMM) 0.1 Absolute Basophils (0.0 - 0.2 /CUMM) 0 PUBS MCHC (33.0 - 37.0 G/DL) 33.8
--- NOTE | 2016-11-23 13:32 | Transfer of Care Summary ---
Hospital Course Course Hospital Course: s a middle-aged man with history of bipolar disease (discontinued all medications recently), is being evaluated for left scrotal swelling (failed outpatient therapy) 3 days, nausea, several episodes of vomiting. At the time of admission, vitals were stable, temperature 98.5, pulse rate 106, respiratory 20, blood pressure 122/78, pulse ox 99% on room air. Laboratory findings indicated leukocytosis W BC 16.4, hemoglobin 17.1, hematocrit 52.2, platelet count 544-all indicating dehydration. Serum creatinine 2.3, BUN 42. Admission diagnosis: #1 dehydration secondary to vomiting #2 left scrotal swelling Below is the problem list and plan: #1 left scrotal swelling-restarted antibiotics, Unasyn. Although, the indication for the use of anti-microbial is very unclear. Leucocytosis improved. No imaging was required at this time. Urology has been advisiong. As per urology, plan to take the patient to the OR on Wednesday, but the pt has been on psych medications, due to which the aspiration is delayed. #2 dehydration-pt was dehydrated due to decreased po intake. Serum creatinine normalized during the stay in the hospital. U tox was positive for benzodiazepines and cannabis. Suspect most of these medications, have not been prescribed. #3 pain management-Percocet, but decreased the frequency to every 8, instead of q6h compared to last admission. #4 mental health-bipolar disorder. Patient declineed all medications. Consulted the psychiatrist, to guide us therapy. To restart atleast a few medications. #5 DVT prophylaxis-heparin subcutaneous and Alps. Assessment/Plan: as above.
[2016-11-23 16:29] VITALS: BP 128/68
[2016-11-24 01:15] VITALS: BP 122/76
[2016-11-24 08:05] LABS: ABSOLUTE BASOPHIL COUNT 0 /CUMM (0.0-0.2); ABSOLUTE EOSINOPHIL COUNT 0 /CUMM (0.0-0.7); ABSOLUTE GRANULOCYTE CT 5.3 /CUMM (1.4-6.5); ABSOLUTE LYMPH COUNT 2.7 /CUMM (1.2-3.4); BASOPHIL % 0.2 % (0.0-2.0); EOSINOPHIL % 0.5 % (0-5); GRANULOCYTE % 58.5 % (42.2-75.2); HEMATOCRIT 35.4 % (42-52); MEAN CORPUSCULAR HGB 28.9 PG (27.0-31.0); MEAN CORPUSCULAR HGB CONC 33.6 G/DL (33.0-37.0); MEAN CORPUSCULAR VOLUME 85.8 FL (80.0-94.0); MEAN PLATELET VOLUME 9.3 FL (7.4-10.4); PLATELET COUNT 274 /CUMM (130-400); RBC DISTRIBUTION WIDTH 13.5 % (11.5-14.5); RED BLOOD CELL CT 4.13 /CUMM (4.70-6.10)
[2016-11-24 08:20] VITALS: BP 126/80
--- NOTE | 2016-11-24 08:57 | PN- Housestaff ---
Subjective Follow-up For: Hydrocele Nausea and vomiting Subjective: Mr Leija was seen and examined this morning. Resting comfortably in bed. He reports no issues overnight. Patient currently states that he is ready to go for his procedure with urology. Patient states that he was able to have a bowel movement last evening. He is also endorses urinary frequency. Patient states that his pain in the scrotal region has remained constant. Pain is rated 7 out of 10. Pain is nonradiating and has not changed over the last 24 hours. Patient denies any fever, chills, nausea, vomiting. Review of Systems Constitutional: Reports: see HPI. Objective Last 24 Hrs of Vital Signs/I&O Vital Signs Date Time Temp Pulse Resp B/P Pulse O2 O2 Flow FiO2 Ox Delivery Rate 11/24 0820 98.8 74 18 126/80 98 Room Air 11/24 0115 98.5 78 18 122/76 97 Room Air 11/23 1629 98.4 83 18 128/68 98 Room Air Intake & Output 11/24 1600 11/24 0800 11/24 0000 Intake Total Output Total 350 Balance -350 Output, Urine 350 Physical Exam General Appearance: Alert, Oriented X3, Cooperative, No Acute Distress Cardiovascular: Normal S1, Normal S2, No Murmurs Lungs: Clear to Auscultation, Normal Air Movement Abdomen: Normal Bowel Sounds, Soft, No Tenderness Neurological: Sensation Intact Extremities: No Edema, Normal Pulses Reproductive (MALE) Hydorcele. Approximately 6 cm x 3 Cm. Tender to palpation. Non erythmatous. Current Medications: Current Medications Sig/Delia Start time Last Medication Dose Route Stop Time Status Admin Acetaminophen 650 MG Q4P PRN 11/21 230 AC 11/23 PO 0209 Ampicillin Sodium/ 3,000 MG Q6H 11/22 0400 AC 11/24 Sulbactam Sodium IV 0341 Sodium Chloride 100 ML Divalproex Sodium 500 MG BID 11/23 PO 2152 Docusate Sodium 100 MG DAILY NEEDED PRN 11/22 0030 AC PO Heparin Sodium 5,000 UNIT Q8 11/22 0600 DC (Porcine) SC Melatonin 5 MG AT BEDTIME 11/23 2199 AC 11/23 PO 2152 Omeprazole 40 MG DAILY AC 11/21 230 AC 11/24 PO 0634 Ondansetron HCl 4 MG Q6P PRN 11/22 0115 AC IV Oxycodone/ 1 TAB Q8P PRN 11/22 1800 AC 11/24 Acetaminophen PO 0301 Patient Medication 1 ED .[facility]-MED ONE 11/23 1327 CO Teaching ED 11/23 1328 Polyethylene Glycol 17 GM DAILY 11/22 1000 AC 11/22 PO 0941 Senna/Docusate Sodium 1 TAB BID 11/22 0015 AC 11/22 PO 0942 Assessment/Plan Assessment: Mr Leija is a gentleman with a past medical history of bipolar disease ( discontinued all medications recently), is being evaluated for left scrotal swelling (failed outpatient therapy) 3 days, nausea, several episodes of vomiting. #Left scrotal swelling On IV Unasyn. Plan to discontinue antibiotics after speaking to Dr. [place]. Patient received more than adequate antibiotics in the last 2 weeks. Follow WBC and vitals closely. No imaging required at this time. Urology consult. As per urology, plan to take the patient to the OR today for drainage of the hydrocele. #Dehydration-normal saline. Serum creatinine normalized. Encouraged by mouth intake. U tox positive for benzodiazepines and cannabis. #Mental health Continue Depakote. 500mg. #DVT prophylaxis heparin subcutaneous and Alps. Problem List: 1. Opiate dependence 2. Benzodiazepine abuse 3. Marijuana abuse 4. Epididymitis 5. Acute kidney injury Pain Ratin Pain Location: Scrotum Pain Goal: Remain pain free Pain Plan: Acetaminophen Tomorrow's Labs & Rationales: CBC - Monitor H/H, drastic fall and post procedure Consulting Request: Consulting Specialty: Urology Consulting Request: Consulting Specialty: Urology
--- NOTE | 2016-11-24 09:08 | PN- Att Addend ---
Attending Addendum Attending Brief Note Patient complains of persistent scrotal pain and swelling General Appearance: Alert, No Acute Distress Skin: Grossly normal HEENT: PEERLA Neck: Supple, No JVD Cardiovascular: Regular Rate, Normal S1, Normal S2, No Murmurs Lungs: Clear to Auscultation, Normal Air Movement Abdomen: Distended left scrotal, tenderness Neurological: Normal Speech, Strength at 5/5 X4 Ext, Cranial Nerves 3-12 NL, Reflexes 2+ Extremities: No Clubbing, No Cyanosis, No Edema Vascular: Normal Pulses Assessment 46-year-old history of bipolar recently discharged with prolonged antibiotics for acute epididymitis/orchitis on Augmentin failed outpatient oral antibiotic treatment secondary to adverse reaction to Augmentin with nausea and vomiting. He returns with persistent testicular discomfort and currently on IV antibiotics. Patient will need surgical exploration and likely aspiration of hydrocele with cultures. Acute kidney injury on admission now resolved. Plan for OR today. Plan Continue antibiotics pending surgical exploration and OR cultures Continue current pain meds Continue all home meds Strict constipation regimen DVT prophylaxis Current Medications Sig/Delia Start time Last Medication Dose Route Stop Time Status Admin Acetaminophen 650 MG Q4P PRN 11/21 2300 AC 11/23 PO 0209 Ampicillin Sodium/ 3,000 MG Q6H 11/22 0400 AC 11/24 Sulbactam Sodium IV 0341 Sodium Chloride 100 ML Divalproex Sodium 500 MG BID 11/23 220 AC 11/23 PO 2152 Docusate Sodium 100 MG DAILY NEEDED PRN 11/22 0030 AC PO Heparin Sodium 5,000 UNIT Q8 11/22 0600 DC (Porcine) SC Melatonin 5 MG AT BEDTIME 11/23 2199 AC 11/23 PO 2152 Omeprazole 40 MG DAILY AC 11/21 2300 AC 11/24 PO 0634 Ondansetron HCl 4 MG Q6P PRN 11/22 0115 AC IV Oxycodone/ 1 TAB Q8P PRN 11/22 1800 AC 11/24 Acetaminophen PO 0301 Patient Medication 1 ED .STK-MED ONE 11/23 1327 DC Teaching ED 11/23 1328 Polyethylene Glycol 17 GM DAILY 11/22 1000 AC 11/22 PO 0941 Senna/Docusate Sodium 1 TAB BID 11/22 0015 AC 11/22 PO 0942 Laboratory Tests 11/24 0705 Hematology CBC w Diff NO MAN DIFF REQ WBC (4.8 - 10.8 /CUMM) 9.0 RBC (4.70 - 6.10 /CUMM) 4.13 L Hgb (14.0 - 18.0 G/DL) 11.9 L Hct (42 - 52 %) 35.4 L MCV (80.0 - 94.0 FL) 85.8 MCH (27.0 - 31.0 PG) 28.9 RDW (11.5 - 14.5 %) 13.5 Plt Count (130 - 400 /CUMM) 274 MPV (7.4 - 10.4 FL) 9.3 Gran % (42.2 - 75.2 %) 58.5 Lymphocytes % (20.5 - 51.1 %) 30.3 Monocytes % (1.7 - 9.3 %) 10.5 H Eosinophils % (0 - 5 %) 0.5 Basophils % (0.0 - 2.0 %) 0.2 Absolute Granulocytes (1.4 - 6.5 /CUMM) 5.3 Absolute Lymphocytes (1.2 - 3.4 /CUMM) 2.7 Absolute Monocytes (0.10 - 0.60 /CUMM) 1.0 H Absolute Eosinophils (0.0 - 0.7 /CUMM) 0 Absolute Basophils (0.0 - 0.2 /CUMM) 0 PUBS MCHC (33.0 - 37.0 G/DL) 33.6 Vital Signs Date Time Temp Pulse Resp B/P Pulse O2 O2 Flow FiO2 Ox Delivery Rate 11/24 0820 98.8 74 18 126/80 98 Room Air 11/24 0115 98.5 78 18 122/76 97 Room Air 11/23 1629 98.4 83 18 128/68 98 Room Air
--- NOTE | 2016-11-24 13:06 | NUR ---
NURSING NOTE: PATIENT A/OX3, VSS. ROOM AIR. PATIENT WALKING FREQUENTLY AROUND UNIT. PATIENT NPO FOR PROCEDURE THIS AFTERNOON. C/O PAIN AROUND 1030AM. MEDS GIVEN PER ORDER. PATIENTS PAIN MUCH BETTER MANAGED AFTER. WILL CONTINUE TO MONITOR.
--- NOTE | 2016-11-24 16:23 | NUR ---
NURSING NOTE: PATIENT A/OX3, SCRUBBED. SLIGHT PAIN NOTED AT THIS TIME. LEFT FLOOR VIA STRETCHER WITH DISTRIBUTION FOR OR. WILL AWAIT RETURN.
--- NOTE | 2016-11-24 16:32 | Cons- Urology ---
General Information and HPI Consulting Request Date of Consult: 11/23/16 Requested By: BRIANDA POTTER [facility] Reason for Consult: left hydrocele Source of Information: patient, old records Exam Limitations: no limitations, anxious History of Present Illness: 46 year old with left hydrocele, possible epididymitis with questionable physical findings. Pt recently hospitalized for long period of time on abx and pain management. Pt aggitated now c/o nausea, wt loss, fever, and worsening scrotal pain and swelling. it is unclear if the pt has stopped his meds. Allergies/Medications Allergies: Coded Allergies: No Known Allergies (11/21/16) Home Med List: Amoxicillin/Potassium Clav (Augmentin 875-125 Tablet) 875 MG-125 MG TABLET 1 TAB PO BID scrotal swelling . Aspirin (Ecotrin*) 81 MG TABLET.DR 2-4 TAB PO PRN PAIN (Reported) Esomeprazole Magnesium (Nexium) 20 MG CAPSULE.DR 1 CAP PO DAILY GI (Reported) Oxycodone HCl/Acetaminophen (Percocet 5-325 MG Tablet) 5 MG-325 MG TABLET 1 TAB PO BID pain Please take 1 tab twice daily on 11/17, 11/18, 11/19 1 tab once daily on 11/20,11/21. Please stop on 11/21.. Current Medications: Current Medications Sig/Delia Start time Last Medication Dose Route Stop Time Status Admin Acetaminophen 650 MG Q4P PRN 11/21 2300 AC 11/23 PO 0209 Ampicillin Sodium/ 3,000 MG Q6H 11/22 0400 AC 11/24 Sulbactam Sodium IV 0953 Sodium Chloride 100 ML Divalproex Sodium 500 MG BID 11/23 2200 AC 11/24 PO 0953 Docusate Sodium 100 MG DAILY NEEDED PRN 11/22 0030 AC PO Heparin Sodium 5,000 UNIT Q8 11/22 0600 DC (Porcine) SC Melatonin 5 MG AT BEDTIME 11/23 2200 AC 11/23 PO 2152 Omeprazole 40 MG DAILY AC 11/21 2300 AC 11/24 PO 0634 Ondansetron HCl 4 MG Q6P PRN 11/22 0115 AC IV Oxycodone/ 1 TAB Q8P PRN 11/22 1800 AC 11/24 Acetaminophen PO 1037 Polyethylene Glycol 17 GM DAILY 11/22 1000 AC 11/22 PO 0941 Senna/Docusate Sodium 1 TAB BID 11/22 0015 AC 11/22 PO 0942 Past History Medical History Blood Transfusion Hx: No Neurological: NONE EENT: NONE Cardiovascular: NONE Respiratory: NONE Gastrointestinal: NONE Hepatic: NONE Renal: NONE Musculoskeletal: INFECTION L TESTICLE RUPTURED DISK Psychiatric: bipolar disease Endocrine: NONE Blood Disorders: NONE Cancer(s): NONE 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 Psychosocial History Where Do You Live? Home Who Do You Live With? self Services at Home: None Primary Language: Greenlandic Smoking Status: Former Smoker ETOH Use: denies use Illicit Drug Use: denies illicit drug use Employment History Retired? no Review of Systems Review of Systems Constitutional: Reports: weakness. EENTM: Denies: no symptoms. Cardiovascular: Denies: no symptoms. Respiratory: Denies: no symptoms. GI: Reports: no symptoms, constipation. Genitourinary: Reports: hesitation. Musculoskeletal: Reports: no symptoms. Exam & Diagnostic Data Vital Signs and I&O Vital Signs Date Time Temp Pulse Resp B/P Pulse O2 O2 Flow FiO2 Ox Delivery Rate 11/24 0820 98.8 74 18 126/80 98 Room Air 11/24 0115 98.5 78 18 122/76 97 Room Air Intake & Output 11/24 1600 11/24 0800 11/24 0000 11/23 1600 11/23 0800 11/23 0000 Intake Total 0 940 1450 900 Output Total 350 500 500 350 Balance 0 -350 440 950 550 Intake, IV 100 450 300 Intake, Oral 0 840 1000 600 Number 3 Bowel Movements Output, Urine 350 500 500 350 Patient 200 lb Weight Physical Exam General Appearance: well developed/nourished, anxious Head: atraumatic Eyes: Bilateral: normal appearance. Neck: normal inspection Respiratory: normal breath sounds Cardiovascular: regular rate/rhythm Gastrointestinal: normal bowel sounds Back: no vertebral tenderness Extremities: normal inspection Reproductive: Normal male genitalia, left hydrocele-not tense Last 24 Hours of Labs: Laboratory Tests 11/24 07 Hematology CBC w Diff NO MAN DIFF REQ WBC (4.8 - 10.8 /CUMM) 9.0 RBC (4.70 - 6.10 /CUMM) 4.13 L Hgb (14.0 - 18.0 G/DL) 11.9 L Hct (42 - 52 %) 35.4 L MCV (80.0 - 94.0 FL) 85.8 MCH (27.0 - 31.0 PG) 28.9 RDW (11.5 - 14.5 %) 13.5 Plt Count (130 - 400 /CUMM) 274 MPV (7.4 - 10.4 FL) 9.3 Gran % (42.2 - 75.2 %) 58.5 Lymphocytes % (20.5 - 51.1 %) 30.3 Monocytes % (1.7 - 9.3 %) 10.5 H Eosinophils % (0 - 5 %) 0.5 Basophils % (0.0 - 2.0 %) 0.2 Absolute Granulocytes (1.4 - 6.5 /CUMM) 5.3 Absolute Lymphocytes (1.2 - 3.4 /CUMM) 2.7 Absolute Monocytes (0.10 - 0.60 /CUMM) 1.0 H Absolute Eosinophils (0.0 - 0.7 /CUMM) 0 Absolute Basophils (0.0 - 0.2 /CUMM) 0 PUBS MCHC (33.0 - 37.0 G/DL) 33.6 Imaging Results: PATIENT: JESSICA HOLLIS PRESENT AGE: 46 PATIENT ACCOUNT NO: [id number] : 71 LOCATION: [facility] ORDERING PHYSICIAN: GARY MARTE MD SERVICE DATE: 11/09/16 EXAM TYPE: US - US-TESTICULAR EXAMINATION: ULTRASOUND SCROTUM CLINICAL INFORMATION: Fever. Testicular pain. COMPARISON: Testicular ultrasound 10/27/2016 TECHNIQUE: Routine scrotal ultrasound with grayscale and spectral and color Doppler. FINDINGS: Testicle: There is homogeneous echotexture of the right and left testicle. No suspicious focal lesion. There is normal variant of an appendix left testicle at the superior pole. Doppler demonstrates arterial and venous vascular flow in both testicles. Right testicle: 4 x 2 x 2.7 cm. Volume 15.3 mL Left testicle: 3.8 x 2.6 x 1.3 cm. Volume 9.1 mL Epididymis: There is normal vascular flow with Doppler.. No abnormal mass. Varices: There is no varices. Hydrocele: There is a left-sided hydrocele. Measures 8.3 x 4.3 x 5.2 cm. There are a few low-level echoes in the fluid which is otherwise anechoic. The hydrocele on the left is similar to prior exam of 10/27/2016. No right-sided hydrocele. Scrotal wall: Unremarkable. IMPRESSION: Large left-sided hydrocele. Normal vascular flow in right and left testicle. Assessment/Plan Assessment/Plan left hydrocele: pt not interested in major hydrocelectomy as he fears worsening pain/infection despite reassuance: will drain percutaneously this admission. Copies To: JULIANE QUINTERO MD Consult Acknowledgment - Thank you for your consult request. Attending MD Review Statement Attending Statement Attending MD Statement: examined this patient, discuss w/resident/PA/[employer]IL [employer]ER Attending Assessment/Plan: left hydrocele drainage.
[2016-11-24 16:52] VITALS: BP 128/82
--- NOTE | 2016-11-24 17:20 | NUR ---
NURSING NOTE: PATIENT RETURNED TO FLOOR VIA STRETCHER WITH DISTRIBUTION FROM PACU. PATIENT A/OX3, VSS PER SMOKE ROOM OPERATOR. IV FLUIDS RUNNING, DISCONTINUED. DRSG TO SCROTOM CDI. WILL CONTINUE TO MONITOR.
--- NOTE | 2016-11-24 17:28 | Operative Report ---
Operative/Inv Procedure Report Surgery Date: 11/24/16 Name of Procedure: percutaneous drainage of left hydrocele Pre-Operative Diagnosis: left hydrocele Post-Operative Diagnosis: same Estimated Blood Loss: scant Surgeon/Machine Plug Shaper: MD QUINTERO ARNOLD-UROLOGY Anesthesia: moderate sedation, block Specimens: 300CC CLEAR YELLOW FLUID Complications: NONE Operative/Procedure Note Note: The pt was in the OR sedated and in candycane sturrups. Upon thorough examination, the scrotal skin edge was noted to be dusky, but no evidence of gangrene advancement was seen. I decided that no debridement of the scrotal skin was needed at this time. Discharge Disposition: PACU CC: JULIANE QUINTERO MD
--- NOTE | 2016-11-24 19:45 | Patient Discharge Instructions ---
Discharge Instructions General Discharge Information You were seen/treated for: Hydrocele Bipolar Special Instructions: 1. Please see your PCP within one week of dischage. 2. Please see the urologist within two weeks of discharge. 3. You will need to follow up with [facility] for your psychiatric care. We have provided you with a referral, for 11/30/2016. They will give you additional medications. 4. Please inform the office of your psychiatrist, Dr. Sharath Kelley, , regarding your plan. 5. Continue taking all of your medications. Diet Continue normal diet: Yes Activity Full Activity/No Limits: Yes Acute Coronary Syndrome Inclusion Criteria At DC or during hospital stay patient has or had the following: ACS DIAGNOSIS No Discharge Core Measures Meds if any: Prescribed or Continued at Discharge Meds if any: NOT Prescribed or Continued at Discharge Congestive Heart Failure Inclusion Criteria At DC or during hospital stay patient has or had the following: CHF DIAGNOSIS No Discharge Core Measures Meds if any: Prescribed or Continued at Discharge Meds if any: NOT Prescribed or Continued at Discharge Cerebrovascular accident Inclusion Criteria At DC or during hospital stay patient has or had the following: CVA/TIA Diagnosis No Discharge Core Measures Meds if any: Prescribed or Continued at Discharge Meds if any: NOT Prescribed or Continued at Discharge Venous thromboembolism Inclusion Criteria VTE Diagnosis No VTE Type NONE VTE Confirmed by (Test) NONE Discharge Core Measures - Per Current guidelines, there needs to be overlap - treatment for the first 5 days of Warfarin therapy. - If discharged on Warfarin prior to 5 days of - overlap therapy, the patient will need to be - assessed for post discharge needs including - *Post discharge parental anticoagulation - *Warfarin and/or parental anticoagulation education - *Follow up date to check INR post discharge At least 5 days overlap therapy as Inpatient No Meds if any: Prescribed or Continued at Discharge Note: Overlap Therapy is Warfarin and Anticoagulant Meds if any: NOT Prescribed or Continued at Discharge
[2016-11-25 00:04] VITALS: BP 146/88
--- NOTE | 2016-11-25 02:12 | NUR ---
PT REFUSING BED ALARM. PT DOES HAVE A STEADY GAIT AT THSI TIME.
--- NOTE | 2016-11-25 05:58 | PN- Housestaff ---
Subjective Follow-up For: Hydrocele Subjective: Mr. Leija was seen and examined this morning. He was resting comfortably in bed. He endorsed no issues overnight. Patient states he was able to void. Patient states he no longer has any symptoms of an enlarged groin and is currently symptom-free. Patient denies any fever, chills, nausea, vomiting. Patient states that he is eager to be discharged as soon as possible. Review of Systems Constitutional: Reports: see HPI. Objective Last 24 Hrs of Vital Signs/I&O Vital Signs Date Time Temp Pulse Resp B/P Pulse O2 O2 Flow FiO2 Ox Delivery Rate 11/25 0838 98.0 74 20 136/80 98 Room Air 11/25 0004 98.4 72 20 146/88 100 Room Air 11/24 1652 97.9 76 20 128/82 96 Room Air Intake & Output 11/25 1600 11/25 0800 11/25 0000 Intake Total 200 Output Total Balance 200 Intake, IV 200 Physical Exam General Appearance: Alert, Oriented X3, Cooperative, No Acute Distress Cardiovascular: Normal S1, Normal S2 Lungs: Clear to Auscultation Abdomen: Normal Bowel Sounds, Soft, No Tenderness Neurological: Normal Gait, Normal Speech, Strength at 5/5 X4 Ext Extremities: No Cyanosis, No Edema Vascular: Normal Pulses Reproductive (MALE) Hydrocele Resolved. No tenderness or Erythema or scrotum. Current Medications: Current Medications Sig/Delia Start time Last Medication Dose Route Stop Time Status Admin Acetaminophen 650 MG Q4P PRN 11/21 230 DCD 11/23 PO 0209 Ampicillin Sodium/ 3,000 MG Q6H 11/22 0400 DCD 11/25 Sulbactam Sodium IV 0913 Sodium Chloride 100 ML Divalproex Sodium 500 MG BID 11/23 2199 DCD 11/25 PO 0916 Docusate Sodium 100 MG DAILY NEEDED PRN 11/22 0030 DCD PO Fentanyl Citrate 100 MCG .STK-MED ONE 11/24 1600 DC IM 11/24 1601 Melatonin 5 MG AT BEDTIME 11/23 2199 DCD 11/24 PO 2128 Midazolam HCl 2 MG .STK-MED ONE 11/24 1600 DC IM 11/24 1601 Omeprazole 40 MG DAILY AC 11/21 2299 DCD 11/25 PO 0629 Ondansetron HCl 4 MG .STK-MED ONE 11/24 1600 DC IM 11/24 1601 Ondansetron HCl 4 MG Q6P PRN 11/22 0115 DCD IV Oxycodone/ 1 TAB Q8P PRN 11/22 1800 DCD 11/25 Acetaminophen PO 0007 Patient Medication 1 ED .STK-MED ONE 11/25 1321 DC Teaching ED 11/25 1322 Polyethylene Glycol 17 GM DAILY 11/22 1000 DCD 11/22 PO 0941 Senna/Docusate Sodium 1 TAB BID 11/22 0015 DCD 11/22 PO 0942 Last 24 Hrs of Lab/Dheeraj Results Last 24 Hrs of Labs/Mics: Laboratory Tests 11/25/16 0702: CBC w Diff NO MAN DIFF REQ, RBC 4.32 L, MCV 85.6, MCH 28.5, RDW 13.6, MPV 9.4, Gran % 49.4, Lymphocytes % 39.5, Monocytes % 10.1 H, Eosinophils % 0.6, Basophils % 0.4, Absolute Granulocytes 4.2, Absolute Lymphocytes 3.3, Absolute Monocytes 0.9 H, Absolute Eosinophils 0.1, Absolute Basophils 0, PUBS MCHC 33.3 Microbiology 11/24 1655 TRUNK: Culture & Sensitivity - CAN Cancelled: GENOR ORDER 11/24 1655 TRUNK: Gram Stain - CAN Cancelled: GENOR ORDER 11/24 1649 GEN OR/DR: Genital Culture - RES 11/24 1649 GEN OR/DR: Gram Stain - RES Assessment/Plan Assessment: Mr Leija is a gentleman with a past medical history of bipolar disease ( discontinued all medications recently), is being evaluated for left scrotal swelling (failed outpatient therapy) 3 days, nausea, several episodes of vomiting. #Left scrotal swelling On IV Unasyn. Plan to discontinue antibiotics after speaking to Dr. [place]. Patient received more than adequate antibiotics in the last 2 weeks. Follow WBC and vitals closely. No imaging required at this time. Urology consult. As per urology, plan to take the patient to the OR today for drainage of the hydrocele. Patient is stable for discharged today on 11/25/2016. Verbal Recommendations from the attending Stated d that the patient can be given a 1 week dose of Keflex 500 mg twice a day. For pain relief patient was given tramadol 50 mg to be used when necessary. #Dehydration-normal saline. Serum creatinine normalized. Encouraged by mouth intake. U tox positive for benzodiazepines and cannabis. #Mental health Continue Depakote. 500mg. she was advised to follow-up with [facility]. He was also advised to follow-up with his care physician regarding valproate level of blood. For now additional antipsychotic meds have been held and can be resumed once patient is more stable. #DVT prophylaxis heparin subcutaneous and Alps. Problem List: 1. Opiate dependence 2. Benzodiazepine abuse 3. Marijuana abuse 4. Epididymitis 5. Acute kidney injury Pain Ratin Pain Location: No Pain Reported Pain Goal: Remain pain free Pain Plan: Tylenol PRN Tomorrow's Labs & Rationales: NA Consulting Request: Consulting Specialty: Urology
[2016-11-25] MEDS ORDERED: DIVALPROEX SOD500 M2 PO (07:41)
[2016-11-25 08:02] LABS: ABSOLUTE BASOPHIL COUNT 0 /CUMM (0.0-0.2); ABSOLUTE EOSINOPHIL COUNT 0.1 /CUMM (0.0-0.7); ABSOLUTE GRANULOCYTE CT 4.2 /CUMM (1.4-6.5); ABSOLUTE LYMPH COUNT 3.3 /CUMM (1.2-3.4); ABSOLUTE MONOCYTE COUNT 0.9 /CUMM (0.10-0.60); BASOPHIL % 0.4 % (0.0-2.0); EOSINOPHIL % 0.6 % (0-5); GRANULOCYTE % 49.4 % (42.2-75.2); HEMATOCRIT 36.9 % (42-52); MEAN CORPUSCULAR HGB 28.5 PG (27.0-31.0); MEAN CORPUSCULAR HGB CONC 33.3 G/DL (33.0-37.0); MEAN CORPUSCULAR VOLUME 85.6 FL (80.0-94.0); MEAN PLATELET VOLUME 9.4 FL (7.4-10.4); PLATELET COUNT 291 /CUMM (130-400); RBC DISTRIBUTION WIDTH 13.6 % (11.5-14.5); RED BLOOD CELL CT 4.32 /CUMM (4.70-6.10); WHITE BLOOD CELL COUNT 8.4 /CUMM (4.8-10.8)
[2016-11-25 08:38] VITALS: BP 136/80
--- NOTE | 2016-11-25 09:07 | PN- Att Addend ---
Attending Addendum Attending Brief Note Patient reports improved swelling General Appearance: Alert, No Acute Distress Skin: Grossly normal HEENT: PEERLA Neck: Supple, No JVD Cardiovascular: Regular Rate, Normal S1, Normal S2, No Murmurs Lungs: Clear to Auscultation, Normal Air Movement Abdomen: Distended left scrotal, tenderness Neurological: Normal Speech, Strength at 5/5 X4 Ext, Cranial Nerves 3-12 NL, Reflexes 2+ Extremities: No Clubbing, No Cyanosis, No Edema Vascular: Normal Pulses Assessment Status post hydrocele aspiration 300 mL clear fluid with culture negative. Likely steroid hydrocele from cellulitis. We'll transition to Augmentin and discharge patient home. Plan Change to Augmentin for 7 more days Discontinue current pain meds Tramadol 50 mg twice a day when necessary for 5 days upon discharge Continue all home meds Stable for discharge Current Medications Sig/Delia Start time Last Medication Dose Route Stop Time Status Admin Acetaminophen 650 MG Q4P PRN 11/21 2300 AC 11/23 PO 0209 Ampicillin Sodium/ 3,000 MG Q6H 11/22 0400 AC 11/25 Sulbactam Sodium IV 0313 Sodium Chloride 100 ML Divalproex Sodium 500 MG BID 11/23 2200 AC 11/24 PO 2128 Docusate Sodium 100 MG DAILY NEEDED PRN 11/22 0030 AC PO Fentanyl Citrate 100 MCG .STK-MED ONE 11/24 1600 DC IM 11/24 1601 Melatonin 5 MG AT BEDTIME 11/23 2200 AC 11/24 PO 2128 Midazolam HCl 2 MG .STK-MED ONE 11/24 1600 DC IM 11/24 1601 Omeprazole 40 MG DAILY AC 11/21 2300 AC 11/25 PO 0629 Ondansetron HCl 4 MG .STK-MED ONE 11/24 1600 DC IM 11/24 1601 Ondansetron HCl 4 MG Q6P PRN 11/22 0115 AC IV Oxycodone/ 1 TAB Q8P PRN 11/22 1800 AC 11/25 Acetaminophen PO 0007 Polyethylene Glycol 17 GM DAILY 11/22 1000 AC 11/22 PO 0941 Senna/Docusate Sodium 1 TAB BID 11/22 0015 AC 11/22 PO 0942 Laboratory Tests 11/25 0702 Hematology CBC w Diff NO MAN DIFF REQ WBC (4.8 - 10.8 /CUMM) 8.4 RBC (4.70 - 6.10 /CUMM) 4.32 L Hgb (14.0 - 18.0 G/DL) 12.3 L Hct (42 - 52 %) 36.9 L MCV (80.0 - 94.0 FL) 85.6 MCH (27.0 - 31.0 PG) 28.5 RDW (11.5 - 14.5 %) 13.6 Plt Count (130 - 400 /CUMM) 291 MPV (7.4 - 10.4 FL) 9.4 Gran % (42.2 - 75.2 %) 49.4 Lymphocytes % (20.5 - 51.1 %) 39.5 Monocytes % (1.7 - 9.3 %) 10.1 H Eosinophils % (0 - 5 %) 0.6 Basophils % (0.0 - 2.0 %) 0.4 Absolute Granulocytes (1.4 - 6.5 /CUMM) 4.2 Absolute Lymphocytes (1.2 - 3.4 /CUMM) 3.3 Absolute Monocytes (0.10 - 0.60 /CUMM) 0.9 H Absolute Eosinophils (0.0 - 0.7 /CUMM) 0.1 Absolute Basophils (0.0 - 0.2 /CUMM) 0 PUBS MCHC (33.0 - 37.0 G/DL) 33.3 Vital Signs Date Time Temp Pulse Resp B/P Pulse O2 O2 Flow FiO2 Ox Delivery Rate 11/25 0838 98.0 74 20 136/80 98 Room Air 11/25 0004 98.4 72 20 146/88 100 Room Air 11/24 1652 97.9 76 20 128/82 96 Room Air
[2016-11-25] MEDS ORDERED: KEFLEX500 M1 PO (09:12)
--- NOTE | 2016-11-25 09:52 | PN- Urology ---
Surgical Brief Attending Note Brief Attending Note: Pt right hydrocele drained without complications. DC plan per med. on brief course antibiotics. Pt to wear supportive underwear for 1 month.
--- NOTE | 2016-11-25 10:45 | PN- Psychiatry ---
Assessment/Plan Impression: He had previously indicated that he wished to stop seeing Dr. Kelley, for psychiatry, including med and psychotherapy, because the MD does not take his insurance. We beleive that the patient would be well-served by coming to Intensive Outpatient Program, after which he can decide if he wishes to change psychiatry providers. I have encouraged him to discuss any prospective change with Dr. Kelley. The patient has not been sleeping well since Wednesday, per his report, mainly due environmental noise, but he has a history of sleep problems. The patient's sister, Mary, is present and supportive. Suggestion: 1. Continue melatonin 5 mg PO at bedtime for insomnia. 2. Continue Depakote 500 mg PO 2X/day (Last VPA before med restart was <10, or subtherapeutic) 3. Please provide a lab slip or lab order to the patient for valproic acid level on 11/27/16, with results to myself and Dr. Sharath Kelley, psychiatrist. 4. The patient is agreeable to IOP. Appointment is 12/02/16 at 1100, at [address] [place] [address] in [facility], with Kathy. 5. If the patient is to change to oral antibiotics, please trial him on this while he is in the hospital to avoid an adverse reaction, which occurred at the time of the last discharge. Thank-you for asking us to participate in Fam' care. We do not anticipate further visits. Jose Blackwell APRN, Pager [phone] Subjective Subjective: A+OX4 Denies SI/HI. Denies AVH; presents no ramona delusions. Insight and judgment intact. Thought processes logical and linear. Objective Last 24 Hrs of Vital Signs/I&O Vital Signs Date Time Temp Pulse Resp B/P Pulse O2 O2 Flow FiO2 Ox Delivery Rate 11/25 0838 98.0 74 20 136/80 98 Room Air 11/25 0004 98.4 72 20 146/88 100 Room Air 11/24 1652 97.9 76 20 128/82 96 Room Air Intake & Output 11/25 1600 11/25 0800 11/25 0000 Intake Total 200 Output Total Balance 200 Intake, IV 200 Current Medications: Current Medications Sig/Delia Start time Last Medication Dose Route Stop Time Status Admin Acetaminophen 650 MG Q4P PRN 11/21 2300 AC 11/23 PO 0209 Ampicillin Sodium/ 3,000 MG Q6H 11/22 0400 AC 11/25 Sulbactam Sodium IV 0913 Sodium Chloride 100 ML Divalproex Sodium 500 MG BID 11/23 220 AC 11/25 PO 0916 Docusate Sodium 100 MG DAILY NEEDED PRN 11/22 0030 AC PO Fentanyl Citrate 100 MCG .STK-MED ONE 11/24 1600 DC IM 11/24 1601 Melatonin 5 MG AT BEDTIME 11/23 220 AC 11/24 PO 2128 Midazolam HCl 2 MG .STK-MED ONE 11/24 1600 DC IM 11/24 1601 Omeprazole 40 MG DAILY AC 11/21 2300 AC 11/25 PO 0629 Ondansetron HCl 4 MG .STK-MED ONE 11/24 1600 DC IM 11/24 1601 Ondansetron HCl 4 MG Q6P PRN 11/22 0115 AC IV Oxycodone/ 1 TAB Q8P PRN 11/22 1800 AC 11/25 Acetaminophen PO 0007 Polyethylene Glycol 17 GM DAILY 11/22 1000 AC 11/22 PO 0941 Senna/Docusate Sodium 1 TAB BID 11/22 0015 AC 11/22 PO 0942 Results Last 24 Hrs of Labs/Mics: Laboratory Tests 11/25 0702 Hematology CBC w Diff NO MAN DIFF REQ WBC (4.8 - 10.8 /CUMM) 8.4 RBC (4.70 - 6.10 /CUMM) 4.32 L Hgb (14.0 - 18.0 G/DL) 12.3 L Hct (42 - 52 %) 36.9 L MCV (80.0 - 94.0 FL) 85.6 MCH (27.0 - 31.0 PG) 28.5 RDW (11.5 - 14.5 %) 13.6 Plt Count (130 - 400 /CUMM) 291 MPV (7.4 - 10.4 FL) 9.4 Gran % (42.2 - 75.2 %) 49.4 Lymphocytes % (20.5 - 51.1 %) 39.5 Monocytes % (1.7 - 9.3 %) 10.1 H Eosinophils % (0 - 5 %) 0.6 Basophils % (0.0 - 2.0 %) 0.4 Absolute Granulocytes (1.4 - 6.5 /CUMM) 4.2 Absolute Lymphocytes (1.2 - 3.4 /CUMM) 3.3 Absolute Monocytes (0.10 - 0.60 /CUMM) 0.9 H Absolute Eosinophils (0.0 - 0.7 /CUMM) 0.1 Absolute Basophils (0.0 - 0.2 /CUMM) 0 PUBS MCHC (33.0 - 37.0 G/DL) 33.3
[2016-11-25] MEDS ORDERED: ULTRAM50 M1 PO (11:36)
--- NOTE | 2016-12-23 13:56 | Discharge Summary ---
Visit Information Visit Dates Admission Date: 11/21/16 Discharge Date: 11/25/16 Hospital Course Course Attending Physician: MICHELLE POTTER MD Primary Care Physician: SERJIO PUGH MD Consulting Request: Consulting Specialty: Urology Consulting Physician: Dr. Gonzalez Hospital Course: 46-year-old history of bipolar recently discharged with prolonged antibiotics for acute epididymitis/orchitis on Augmentin failed outpatient oral antibiotic treatment secondary to adverse reaction to Augmentin with nausea and vomiting. He returned with persistent testicular discomfort and leukocytosis with acute kidney injury secondary to poor by mouth intake and dehydration. 1. Hydrocele/cellulitis scrotumHe underwent aspiration of the hydrocele with about 300 mL of clear fluid that was culture negative. His antibiotic was transitioned from IV Unasyn upon admission to Augmentin for a total of 7 days for possible cellulitis of scrotum secondary to constant irritation. He was advised by urology to use tight undergarment for at least 30 days and follow up as outpatient. Allergies: Coded Allergies: No Known Allergies (11/21/16) Significant Procedures: hydrocele aspiration by Dr. Juliane Gonzalez Disposition Summary Disposition Principal Diagnosis: hydrocele with scrotal cellulitis Additional Diagnosis: hydrocele Discharge Disposition: home or self care Discharge Instructions General Discharge Information Code Status: Full Code Patient's Diet: no restrictions Patient's Activity: no restrictions Follow-Up Instructions/Appts: follow-up with Dr. Juliane Gonzalez MD as outpatient within a week of discharge Medications at Discharge Discharge Medications: Stop taking the following medications: Oxycodone HCl/Acetaminophen (Percocet 5-325 MG Tablet) 5 MG-325 MG TABLET ORAL TWICE DAILY Qty = 8 Amoxicillin/Potassium Clav (Augmentin 875-125 Tablet) 875 MG-125 MG TABLET ORAL TWICE DAILY Qty = 14 Continue taking these medications: Esomeprazole Magnesium (Nexium) 20 MG CAPSULE. 1 Capsule ORAL DAILY Comments: NOT GIVEN IN HOSPITAL Aspirin (Ecotrin*) 81 MG TABLET. 2-4 Tablet ORAL as needed for PAIN Comments: PER PT Start taking the following new medications: Divalproex Sodium (Divalproex Sodium) 500 MG TABLET. 500 Milligram ORAL TWICE DAILY Qty = 14 No Refills Instructions: Please take this medication daily. You will need to have a valproic acid level checked. If your level is greater than 80mcg/ML, stop taking this madication and inform your psychiatrist. Cephalexin (Keflex) 500 MG CAPSULE 1 Capsule ORAL TWICE DAILY Qty = 14 No Refills Tramadol HCl (Ultram) 50 MG TABLET 1 Tablet ORAL 2 x Daily as needed as needed for pain Qty = 15 No Refills Copies To: JULIANE GONZALEZ MD Attending MD Review Statement Documenting Attending: MICHELLE POTTER MD
[2016-12-30] MEDS ORDERED: LEXAPRO10 M1 PO (10:43)
[2016-12-30] MEDS ORDERED: SEROQUEL400 M1 PO (10:44)
[2016-12-30] MEDS ORDERED: SEROQUEL100 M1 PO (10:44)
== END 2016-11-25 12:00 | DRG 501 ==
LOC: ENRESERVDT → ENRESERVTM → ERH 17:22 → 2NB 21:44 → ERHI 21:44 → 2NB 23:46
PROVIDERS: Emergency Medicine; Internal Medicine; Internal Medicine Endocrinology, Diabetes & Metabolism; Student in an Organized Health Care Education/Training Program; ADMIT Internal Medicine
PROC: 0V9 Male Reproductive System, Drainage (ICD-10-PCS; principal; 2016-11-24)
DX: N45.3 Epididymo-orchitis (principal); N17.9 Acute kidney failure, unspecified; F31.9 Bipolar disorder, unspecified; F12.10 Cannabis abuse, uncomplicated; F13.10 Sedative, hypnotic or anxiolytic abuse, uncomplicated
CPT/HCPCS: 2NBSP; 87070; 87075; 87205; 36415; 74176; 80307; 81003; 82436; 87040; 87086; 93005; 93010; 96361; 96374; 96375; 96376; 99232; 99233; J1644; J2405

== ENCOUNTER → 2016-12-31 | Day surgery (SDC) | payer OTHER ==
[~2016-12-31] VITALS: Ht 182.9 cm; Wt 86.2 kg
[~2016-12-31] MED LIST changes: +DIVALPROEX SOD500 M2 PO; +KEFLEX500 M1 PO; +LEXAPRO10 M1 PO; +SEROQUEL100 M1 PO; +SEROQUEL400 M1 PO; +ULTRAM50 M1 PO
--- NOTE | 2016-12-31 16:20 | Operative Report ---
Operative/Inv Procedure Report Surgery Date: 12/31/16 Name of Procedure: Left hydrocelectomy. Scrotal exploration. Pre-Operative Diagnosis: Left symptomatic hydrocele Post-Operative Diagnosis: . Same Estimated Blood Loss: less than 50ml Surgeon/Automotive Brake Specialist: JULIANE QUINTERO MD Anesthesia: laryngeal mask airway, block Specimens: Right appendix testes. Right hydrocele sac Complications: None Operative/Procedure Note Note: The patient was taken to the operating room and placed in the OR table in supine position. With the patient awake, timeout was performed in order to confirm correct identity, laterality, antibiotics, anesthesia, and other pertinent perioperative information. After adequate anesthesia and IV antibiotics, the patient was frog legged and draped and prepped in the usual surgical fashion. Local anesthesia was used to infiltrate the midline scrotal raphae. A 3 cm incision was made along the lower portion of the midline raphae in order to expose the detrusor fascia. Incision was carried out through the detrusor fascia towards the right side using coag current. The right scrotum was entered and the incision was spot cauterized in order to confirm good hemostasis. Testicle was then extruded through the incision without significant difficulty. A was examined and noted to have no significant pathology. On the posterior- superior portion of the testicle, a loculated hydrocele was noted. The hydrocele was opened/marsupialized, and 20 mL of clear fluid was drained. The hydrocele sac was excised using Bovie cautery approximiately 1cm from the cord and testicle, and sent to pathology. The incised edge of the hydrocele, remaining on the cord and testicle, was suture ligated using 2-0 Vicryl running stitches. Copious irrigation was performed, and no significant bleeding was noted. The right testicle was then replaced into the right scrotum in its anatomic position. The detrusor fascia was then reapproximated using 2-0 Vicryl running suture. The skin was then closed using 0-Vicryl suture in a vertical mattress fashion. All sponge needle and instrument count were correct at the end of the case. Copious amounts of bacitracin and fluff gauze was placed on the incision. Scrotal support was placed on the patient as well as ice packs. The patient tolerated the procedure well, was extubated, and taken to the recovery room in satisfactory condition. He is to be discharged home with pain medication and antibiotics, and follow-up visit in 2 weeks' time. CC: JULIANE QUINTERO MD
== END ==
LOC: STS 02:50
DX: N43.3 Hydrocele, unspecified (principal); N50.82 Scrotal pain; F17.210 Nicotine dependence, cigarettes, uncomplicated
CPT/HCPCS: 88302; 88304; J0131; J1100; J1885; J2001; J2250; J2405

== ENCOUNTER 2017-11-29 11:48 | Inpatient (IN) | payer OTHER ==
[~2017-11-29] VITALS: Ht 182.9 cm; Wt 89.4 kg
[~2017-11-29 11:48] MED LIST changes: -LEXAPRO10 M1 PO; +LEXAPRO20 M1 PO
--- NOTE | 2017-11-29 17:21 | ULTRASOUND REPORT ---
EXAMINATION: US SUPERFICIAL IMAGING, EXTREMITY CLINICAL INFORMATION: Multiple right forearm draining abscesses. COMPARISON: None. TECHNIQUE: Ultrasound of the area of clinical concern, right forearm. FINDINGS: There are multiple open wounds in the right upper to mid forearm. The largest of these wounds measures approximately 3.1 x 1 x 2.1 cm. There is soft tissue swelling present, and edema present in these regions. No discrete loculated or drainable fluid collections identified. IMPRESSION: Multiple open wounds, with associated soft tissue swelling and soft tissue edema. No discrete loculated or drainable fluid collections identified by ultrasound.
--- NOTE | 2017-11-29 18:22 | ED SKIN/ALLERGY COMPLAINT ---
History of Present Illness General Chief Complaint: Upper Extremity Problem Stated Complaint: RIGHT ARM PAIN POSSIBLE INFECTION? Source: patient, old records Exam Limitations: no limitations Vital Signs & Intake/Output Vital Signs & Intake/Output Vital Signs Date Time Temp Pulse Resp B/P B/P Pulse O2 O2 Flow FiO2 Mean Ox Delivery Rate 11/29 1539 98.8 97 18 158/98 97 Room Air 11/29 1158 97.6 128 18 152/112 98 Room Air Allergies Coded Allergies: No Known Allergies (11/21/16) Reconcile Medications Divalproex Sodium 500 MG TABLET.DR 500 MG PO BID Bipolar Please take this medication daily. You will need to have a valproic acid level checked. If your level is greater than 80mcg/ML, stop taking this madication and inform your psychiatrist. Escitalopram Oxalate (Lexapro) 20 MG TABLET 1 TAB PO DAILY DEPRESSION ( Reported) Quetiapine Fumarate (Seroquel) 100 MG TABLET 1 TAB PO QPM BIPOLAR (Reported) Quetiapine Fumarate (Seroquel) 400 MG TABLET 1 TAB PO QPM BIPOLAR (Reported) Triage Note: 47 YO MALE TO TRIAGE FOR EVAL OF MRSA ON ARM. STATES HE WAS IN [place] AND DX WITH MRSA IN THE WOUND ON HIS R ARM, STATES HE WAS GIVEN IM AND PO ANTIOIBCS BUT STATES HE ONLY HAS STATE INSURANCE SO HAD TO COME BACK FOR TREATMENT. WOUND WRAPPED [employer] AND [employer]. Triage Nurses Notes Reviewed? yes Onset: 2 weeks Duration: week(s):, constant, continues in ED, getting worse Timing: recent history Severity: moderate, severe Location: extremities Possible Factors: exposure to illness No Modifying Factors: none Associated Symptoms: change in skin texture, rash, swelling/mass/lumps HPI: 10 days prior to admission while patient was in [place] he was diagnosed with MRSA abscess to right forearm. He was started on Bactrim and intramuscular injections x 4. He presents with worsening redness and swelling and abscess to the right forearm. He denies fever chills nausea vomiting diarrhea abdominal pain chest pain shortness breath headache dysuria bleeding. Past History Travel History Traveled to [place] past 21 day No Medical History Any Pertinent Medical History? see below for history Neurological: NONE EENT: NONE Cardiovascular: NONE Respiratory: NONE Gastrointestinal: NONE Hepatic: NONE Renal: NONE Musculoskeletal: INFECTION L TESTICLE RUPTURED DISK Psychiatric: bipolar disease Endocrine: NONE Blood Disorders: NONE Cancer(s): NONE HEAD WAITRESS/Reproductive: NONE History of MRSA: No History of VRE: No History of CDIFF: No Surgical History Surgical History: spinal fusion Psychosocial History Who do you live with Patient/Self Services at Home None What is your primary language Slovak Tobacco Use: Never used Family History Family History, If Any: FATHER (thymoma ?). Hx Contributory? No Review of Systems Review of Systems Constitutional: Reports: no symptoms. EENTM: Reports: no symptoms. Respiratory: Reports: no symptoms. Cardiovascular: Reports: no symptoms. GI: Reports: no symptoms. Genitourinary: Reports: no symptoms. Musculoskeletal: Reports: no symptoms. Skin: Reports: see HPI, rash. Neurological/Psychological: Reports: no symptoms. Hematologic/Endocrine: Reports: no symptoms. Immunologic/Allergic: Reports: no symptoms. All Other Systems: Reviewed and Negative Physical Exam Physical Exam General Appearance: well developed/nourished, alert, awake, anxious, mild distress, thin Head: atraumatic, normal appearance Eyes: Bilateral: PERRL, EOMI. Ears, Nose, Throat: normal pharynx, normal ENT inspection, hearing grossly normal Neck: normal inspection, supple Respiratory: normal breath sounds Cardiovascular: regular rate/rhythm Peripheral Pulses: 4+ carotid (R), 4+ carotid (L) Gastrointestinal: normal bowel sounds, soft, non-tender, no organomegaly Back: normal inspection, normal range of motion, no vertebral tenderness Extremities: normal inspection, normal capillary refill, normal range of motion, no edema Neurologic/Psych: awake, alert, oriented x 3, normal mood/affect Reflexes: 2+: bicep (R), bicep (L). Skin: rash Skin Problem Location: upper extremities (right forearm) Skin Problem Character: abcess, erythema, patchy, tenderness, thickening, warm Lymphatic: no anterior cervical hernandez Progress Differential Diagnosis: abscess/cellulitis, allergic reaction, contact dermatitis Plan of Care: Orders Procedure Date/time Status Regular Diet 11/29 D Active OXYGEN SETUP (GEN) 11/29 1728 Active Saline Lock 11/29 1728 Active Admit to inpatient 11/29 1728 Active Vital Signs 11/29 1728 Active Activity/Ambulation 11/29 1728 Active EXTREMETIES CULTURE 11/29 1728 Active BLOOD CULTURE 11/29 1728 Active COMPREHENSIVE METABOLIC PANEL 11/29 1728 Active CBC WITHOUT DIFFERENTIAL 03/05 1729 Complete Code Status 11/29 1728 Active Laboratory Tests 11/29/17 1815: Sodium Pending, Potassium Pending, Chloride Pending, Carbon Dioxide Pending, Anion Gap Pending, BUN Pending, Creatinine Pending, BUN/Creatinine Ratio Pending , Glucose Pending, Calcium Pending, Total Bilirubin Pending, AST Pending, ALT Pending, Alkaline Phosphatase Pending, Total Protein Pending, Albumin Pending, Globulin Pending, Albumin/Globulin Ratio Pending, CBC w Diff NO MAN DIFF REQ, RBC 5.90, MCV 86.0, MCH 28.3, MCHC 32.9 L, RDW 14.0, MPV 7.7, Gran % 47.4, Lymphocytes % 41.0, Monocytes % 7.9, Eosinophils % 3.3, Basophils % 0.4, Absolute Granulocytes 5.3, Absolute Lymphocytes 4.6 H, Absolute Monocytes 0.9 H, Absolute Eosinophils 0.4, Absolute Basophils 0 Microbiology 11/29 183 BLOOD: Blood Culture - RECD 11/29 1814 BLOOD: Blood Culture - RECD 11/29 172 EXTREMITIE: Culture & Sensitivity - ORD 11/29 172 EXTREMITIE: Gram Stain - ORD Diagnostic Imaging: Viewed by Me: Ultrasound. Discussed w/RAD: Ultrasound. Radiology Impression: Multiple open wounds, with associated soft tissue swelling and soft tissue edema. No discrete loculated or drainable fluid collections identified by Departure Departure Disposition: STILL A PATIENT Condition: Stable Clinical Impression Primary Impression: Cellulitis and abscess of unspecified site Secondary Impressions: Failure of outpatient treatment Referrals: Ashli LINDSAY,Dmitriy Dorsey (PCP/Family) Departure Forms: Customer Survey General Discharge Information Admission Note Spoke With: Yong LINDSAY,[facility] Documentation of Exam: Documentation of any treatments & extenuating circumstances including Concerns Regarding Discharge (functional status, medication knowledge or non-compliance, living conditions, etc.) that warrant an admission rather than observation: IV antibiotics follow cultures serial lab exam medication adjustment continuing care discharge planning.
[2017-11-29 18:38] LABS: ABSOLUTE BASOPHIL COUNT 0 /CUMM (0.0-0.2); ABSOLUTE EOSINOPHIL COUNT 0.4 /CUMM (0.0-0.7); ABSOLUTE GRANULOCYTE CT 5.3 /CUMM (1.4-6.5); ABSOLUTE LYMPH COUNT 4.6 /CUMM (1.2-3.4); ABSOLUTE MONOCYTE COUNT 0.9 /CUMM (0.10-0.60); BASOPHIL % 0.4 % (0.0-2.0); EOSINOPHIL % 3.3 % (0-5); HEMATOCRIT 50.8 % (42-52); MEAN CORPUSCULAR HGB 28.3 PG (27.0-31.0); MEAN CORPUSCULAR HGB CONC 32.9 G/DL (33.0-37.0); MEAN PLATELET VOLUME 7.7 FL (7.4-10.4); PLATELET COUNT 335 /CUMM (130-400); WHITE BLOOD CELL COUNT 11.2 /CUMM (4.8-10.8)
[2017-11-29 18:42] LABS: GRANULOCYTE % 47.4 % (42.2-75.2)
--- NOTE | 2017-11-29 19:24 | Admission Certification ---
Admission Certification Certification Statement - As attending physician, I certify that at the time of - admission, based on clinical presentation, severity of - symptoms, need for further diagnostic testing and - therapeutic interventions, and risk of adverse outcomes - without in-hospital treatment, in my clinical assessment, - this patient requires an acute hospital stay for a minimum - of two nights or longer. I have also considered psychsocial - factors such as support system, advanced age, financial - issues, cognitive issues, and failed out-patient treatments, - past re-admission history, safety of patient, and lack of - compliance as applicable. Specific rationale supporting this admission is: Right forearm cellulitis, abscess, failed outpatient therapy.
[2017-11-29 21:30] VITALS: BP 148/110
[2017-11-29] MEDS ORDERED: ASPIRIN81 M4 PO (22:04)
[2017-11-29] MEDS ORDERED: HYDROXYZINE HCL25 M2 PO (22:10)
--- NOTE | 2017-11-29 22:33 | History & Physical ---
[facility] 11/29/17 2232: General Information and HPI Allergies/Medications Allergies: Coded Allergies: No Known Allergies (11/21/16) Home Med list Aspirin (Aspirin*) 81 MG TAB.CHEW 1 TAB PO DAILY heart health (Reported) Divalproex Sodium 500 MG TABLET.DR 500 MG PO BID Bipolar Please take this medication daily. You will need to have a valproic acid level checked. If your level is greater than 80mcg/ML, stop taking this madication and inform your psychiatrist. Escitalopram Oxalate (Lexapro) 20 MG TABLET 1 TAB PO DAILY DEPRESSION ( Reported) Hydroxyzine Hydrochloride (Atarax) 25 MG TAB 1 TAB PO TID ALLERGY (Reported) Quetiapine Fumarate (Seroquel) 100 MG TABLET 1 TAB PO QPM BIPOLAR (Reported) Quetiapine Fumarate (Seroquel) 400 MG TABLET 1 TAB PO QPM BIPOLAR (Reported) Past History Travel History Traveled to [place] past 21 day No Medical History Blood Transfusion Hx: No Neurological: NONE EENT: NONE Cardiovascular: NONE Respiratory: NONE Gastrointestinal: NONE Hepatic: NONE Renal: NONE Musculoskeletal: INFECTION L TESTICLE RUPTURED DISK Psychiatric: bipolar disease Endocrine: NONE Blood Disorders: NONE Cancer(s): NONE ACCOUNTING INTERN/Reproductive: NONE History of MRSA: Yes History of VRE: No History of CDIFF: No Isolation History: Contact Surgical History Surgical History: spinal fusion Past Family/Social History Family History Relations & Conditions if any FATHER (thymoma ?). Psychosocial History Where do you live? Home Who Do You Live With? self Services at Home: None Primary Language: Polish Smoking Status: Current Everyday Smoker
--- NOTE | 2017-11-29 23:26 | History & Physical ---
Akiko Son MD 11/29/17 5524: General Information and [facility] MD Statement: I have seen and personally examined JESSICA HOLLIS and documented this H&P. The patient is a 47 year old M who presented with a patient stated chief complaint of right foremarm soft tissue swelling, drainage. Source of Information: patient Exam Limitations: no limitations History of Present Illness: Patient is a 47-year-old male with a past medical history of bipolar disorder, hyperlipidemia not on statins secondary to myalgias, opiate abuse, ruptured disc requiring spinal fusion "years ago", that comes to see us for right forearm swelling, redness, drainage. Symptoms started 10 days ago while patient was in [place]. He states that he had and "ingrown hair" that he attempted to drain, and woke up the next day with a swollen and painful forearm. The patient went to a walk-in clinic where he was given oral antibiotics by mouth, was found to be positive for MRSA. He did not notice resolution of the swelling and returned , was given intramuscular antibiotics, patient uncertain as to which one. The swelling continued and the patient decided he had to return to [place] where he has the insurance for in-hospital treatment. The patient states that he is still currently on his course of Bactrim, has 1 more day of dosing left. He admits to taking 500 mg of morphine for the pain as well as opiates that he got "off the street" as well. Previously he reports that he had been clean for 21 weeks. Now, the patient notes throbbing, burning pain, 8/10, discharge that is thick and yellow from his draining wound. The patient notes that recently he "took pliers to the wound and drained a shot glass worth of pus". Patient's only recent infection history was a UTI last year. Patient denies any immunologic deficiencies. The patient has extensive tattooing throughout his entire body but denies any recent tattoos on that arm. He does admit to recent tattoos on his left arm. He denies any insect or animal bites. He denies fever , chills, nausea, vomiting, shortness of breath, chest pain, abdominal pain, diarrhea, weakness, dizziness. The patient does also complain of urinary urgency with inability to urinate that he attributes to his back injury when he sits or stands for long periods of time. He has not seen a neurologist. The patient also has a history of left hydrocele that was operated on by Dr. Gonzalez. The patient has smoked one pack of cigarettes per day since his teens. He has not had alcohol in the last 4 years but previously was an alcoholic. He continues to have problems with drugs including opiates and marijuana. The patient is not sexually active at this moment. He denies any STDs in the past. The patient's PCP is Dr. Cornelius. Allergies/Medications Allergies: Coded Allergies: No Known Allergies (11/21/16) Home Med list Aspirin (Aspirin*) 81 MG TAB.CHEW 1 TAB PO DAILY heart health (Reported) Divalproex Sodium 500 MG TABLET.DR 500 MG PO BID Bipolar Please take this medication daily. You will need to have a valproic acid level checked. If your level is greater than 80mcg/ML, stop taking this madication and inform your psychiatrist. Escitalopram Oxalate (Lexapro) 20 MG TABLET 1 TAB PO DAILY DEPRESSION ( Reported) Hydroxyzine Hydrochloride (Atarax) 25 MG TAB 1 TAB PO TID ALLERGY (Reported) Quetiapine Fumarate (Seroquel) 100 MG TABLET 1 TAB PO QPM BIPOLAR (Reported) Quetiapine Fumarate (Seroquel) 400 MG TABLET 1 TAB PO QPM BIPOLAR (Reported) Past History Travel History Traveled to [place] past 21 day No Medical History Blood Transfusion Hx: No Neurological: NONE EENT: NONE Cardiovascular: hyperlipidemia Respiratory: NONE Gastrointestinal: NONE Hepatic: NONE Renal: NONE Musculoskeletal: INFECTION L TESTICLE RUPTURED DISK Psychiatric: bipolar disease, opioid dependence Endocrine: NONE Blood Disorders: NONE Cancer(s): NONE BUSINESS UNIT MANAGER/Reproductive: NONE History of MRSA: Yes History of VRE: No History of CDIFF: No Isolation History: Contact Surgical History Surgical History: spinal fusion Past Family/Social History Family History Relations & Conditions if any Family history was reviewed; no changes noted. Psychosocial History Where do you live? Home Who Do You Live With? self Services at Home: None Primary Language: Syriac Smoking Status: Current Everyday Smoker Sexual History Sexually Active No Review of Systems Review of Systems Constitutional: Reports: no symptoms. EENTM: Reports: no symptoms. Cardiovascular: Reports: no symptoms. Respiratory: Reports: no symptoms. GI: Reports: no symptoms. Genitourinary: Reports: see HPI, hesitation, urgency. Musculoskeletal: Reports: back pain. Skin: Reports: lesions. Neurological/Psychological: Reports: see HPI. Hematologic/Endocrine: Reports: no symptoms. Immunologic/Allergic: Reports: no symptoms. All Other Systems: Reviewed and Negative Exam & Diagnostic Data Last 24 Hrs of Vital Signs/I&O Vital Signs Date Time Temp Pulse Resp B/P B/P Pulse O2 O2 Flow FiO2 Mean Ox Delivery Rate 11/29 2130 98.1 110 20 148/110 97 Room Air 11/29 1954 98.5 95 18 146/92 97 Room Air Room Air 11/29 1539 98.8 97 18 158/98 97 Room Air 11/29 1158 97.6 128 18 152/112 98 Room Air Intake & Output 11/30 0800 11/30 0000 11/29 1600 Intake Total Output Total Balance Patient 210 lb 210 lb Weight Weight Reported by Patient Reported by Patient Measurement Method Physical Exam General Appearance Alert, Oriented X3, Cooperative, No Acute Distress Skin No Rashes, right forearm draining fluctuant mass, two other scabs nearby, erythematous. extensive skin tattoos. Skin Temp/Moisture Exam: Warm/Dry Sepsis Skin Exam (color): Normal for Ethnicity HEENT Atraumatic, PERRLA, EOMI, Mucous Membr. moist/pink Neck Supple Cardiovascular Regular Rate, Normal S1, Normal S2, No Murmurs Lungs Clear to Auscultation, Normal Air Movement Abdomen Normal Bowel Sounds, Soft, No Tenderness, No Hepatospenomegaly Neurological Normal Speech, Sensation Intact Extremities No Clubbing, No Cyanosis, No Edema, Normal Pulses Vascular Normal Pulses Sepsis Peripheral Pulse Location: Radial Sepsis Peripheral Pulse Exam: Normal Sepsis Cap Refill Exam: <2 Sec Last 24 Hrs of Labs/Dheeraj: Laboratory Tests 11/29/171999: Urine Opiates Screen > 4000.00 H, Methadone Screen 81, Barbiturate Screen < 60, Ur Phencyclidine Scrn < 6.00, Amphetamines Screen 1032 H, U Benzodiazepines Scrn < 85, Urine Cocaine Screen < 50, Urine Cannabis Screen 79.00 H 11/29/171814: Anion Gap 17 H, Estimated GFR > 60, BUN/Creatinine Ratio 21.8, Glucose 85, Calcium 10.6 H, Total Bilirubin 0.7, AST 22, ALT 24, Alkaline Phosphatase 100, Total Protein 9.9 H, Albumin 5.4 H, Globulin 4.5 H, Albumin/Globulin Ratio 1.2, CBC w Diff NO MAN DIFF REQ, RBC 5.90, MCV 86.0, MCH 28.3, MCHC 32.9 L, RDW 14.0, MPV 7.7, Gran % 47.4, Lymphocytes % 41.0, Monocytes % 7.9, Eosinophils % 3.3, Basophils % 0.4, Absolute Granulocytes 5.3, Absolute Lymphocytes 4.6 H, Absolute Monocytes 0.9 H, Absolute Eosinophils 0.4, Absolute Basophils 0 Microbiology 11/30 1915 EXTREMITIE: Culture & Sensitivity - RECD 11/30 1915 EXTREMITIE: Gram Stain - RECD 11/29 1838 BLOOD: Blood Culture - RECD 11/29 1814 BLOOD: Blood Culture - RECD Assessment/Plan Assessment: Patient is a 47-year-old male with a past medical history of bipolar disorder, hyperlipidemia, opiate abuse, ruptured disc requiring spinal fusion "years ago", that comes to see us for right forearm swelling, redness, drainage. Symptoms started 10 days ago while patient was in [place]. He states that he had and "ingrown hair" that he attempted to drain, and woke up the next day with a swollen and painful forearm. The patient went to a walk-in clinic where he was given oral antibiotics by mouth (Bactrim), was found to be positive for MRSA. The infection continued and the patient was given intramuscular antibiotics and ultimately returned here for in-hospital treatment due to insurance issues. In the ED, patient was found to be afebrile with a pulse of 128 but decreased to 97, blood pressure elevated at 152/112, respiratory rate 18, good saturations on room air. WBCs found to be 11.2, normal creatinine, elevated albumin and protein. Tox screen was positive for opiates, amphetamines, cannabis. Patient had a popliteal fossa ultrasound which showed soft tissue swelling and edema with no discrete loculated or drainable fluid collections identified. Patient appears to have abscess on exam, reportedly MRSA as per patient report, with previous failure of antibiotics. While nodrainable has been identified, patient will require intravenous antibiotics. Plan Right forearm MRSA positive abscess -Vancomycin 1 g daily -Blood cultures 2 -Extremity gram stain and culture -Morphine 2 mg every 6 when necessary for pain -Normal saline at a rate of 100 mL per hour -Hold infectious disease consults unless patient worsens -Hold surgical evaluation as no drainable lesion has been found on ultrasound. Hypertension -Patient blood pressure found on admission to be elevated to 152/112, later 148/ 110. -We will give 5 mg amlodipine once and reevaluate in the morning. Opiate abuse -Morphine 2 mg every 6 when necessary for pain as patient has high opiate level and is at risk for withdrawal symptoms History of bipolar disorder -Patient sees Dr. Mijares for his psychiatric management -Patient is refusing in-hospital psychiatric evaluation -We'll continue the patient on Depakote 500 twice a day, Wellbutrin 150 mg in the a.m. and 350 mg at night, Lexapro 20 mg every night, Seroquel 100 mg at night Chronic medical problems -Hydroxyzine 25 mg 3 times a day for restless leg syndrome -Aspirin 81 mg for heart health History of smoking -Patient smokes one pack per day -21 mg nicotine patch Lovenox for DVT prophylaxis Regular diet DNR/DNI (patient stated clearly his wishes for DNR/DNI "when it's your time, it' s your time".) As Ranked By This Provider Problem List: 1. Failure of outpatient treatment 2. Cellulitis and abscess of unspecified site Core Measures/Misc (06/13) Acute Coronary Syndrome ACS Diagnosis: No Congestive Heart Failure Congestive Heart Failure Diagnosis No Cerebrovascular Accident CVA/TIA Diagnosis: No VTE (View Protocol) VTE Risk Factors Age>40 No Mechanical VTE Prophylaxis d/t N/A MechProphylax Ordered No VTE Pharm Prophylaxis d/t NA PharmProphylax ordered Sepsis (View protocol) Sepsis Present: No Yong LINDSAY, [facility] 11/30/17 0503: Attending MD Review Statement Attending Statement Attending MD Statement: examined this patient, discuss w/resident/PA/OBSTETRICS NURSE, agreed w/resident/PA/OBSTETRICS NURSE, reviewed images, amended to note Attending Assessment/Plan: 47 yo M smoker with h/o bipolar disorder, HTN not on medications, is here for evaluation of right forearm swelling/ discharged. Patient was visiting his family in [place], about 4 weeks ago he noticed a small pimple/ ingrown hair to the postero-lateral aspect of his right forearm. He pricked the pimple and it drained minimal purulent material. The next day he noticed the forearm was swollen and erythematous. He went in to a walk in clinic, was given IM and oral antibiotics (bactrim) for 10 days. Cultures from the area grew MRSA (report in chart from 11/02/17). He continued to develop 2 more abscesses in that area, one of them was drained few days ago and he was restarted on bactrim. He states he drove back to [place] today as he has state insurance and his treatment expenses at [place] were high. He denies IVDA. He does do marijuana and 'off the street' opiates. He has severe throbbing pain to the right forearm. Denies insect bites. Vitals: stable except for HR 90-110's, BP 148/110, sats 97% RA. Exam: AAO, in mild distress due to pain, Right forearm postero-lateral aspect three open wounds dried scabs, a large 4x4 area of swelling, induration, with pus point noted, minimal fluctuance, severe tenderness. Peripheral pulses well felt. Labs: WBC 11.2, AG 17, BUN 24, Ca 10.6. Utox positive for opiates, amphetamines and cannabis. Forearm ultrasound multiple open wounds with soft tissue swelling and edema. No discrete loculated or drainable fluid collections. Assessment and plan: 1. Right forearm cellulitis and abscess 2. MRSA infection 3. Failed outpatient therapy 4. History of bipolar disorder 5. Polysubstance abuse 6. Essential hypertension not treated - Admit to general medicine - Elevated RUE - Don the area of edema/ erythema/ abscess - Panculture - Received clindamycin in ER, we will initiate IV Vancomycin - Culture swab taken from the abscess - Surgery consult in AM to assess need for further I and D - Pain management with IV morphine - IV hydration x 1 bag - Smoking cessation counseling, nicotine patch - Continue meds for bipolar depression lexapro, depakote, seroquel, wellbutrin and hydroxyzine - Monitor BP, consider clonidine. DVT ppx Lovenox. DNR/Mauro Dorantes 11/30/17 0835: Resident Review Statement Resident Statement: examined this patient, discussed with rn internal medicine, agreed with rn internal medicine, discussed with family, reviewed EMR data (avail), discussed with nursing , reviewed images, amended to note
[2017-11-30 07:38] VITALS: BP 124/92
[2017-11-30 08:06] LABS: ABSOLUTE BASOPHIL COUNT 0 /CUMM (0.0-0.2); ABSOLUTE EOSINOPHIL COUNT 0.4 /CUMM (0.0-0.7); ABSOLUTE GRANULOCYTE CT 4.6 /CUMM (1.4-6.5); ABSOLUTE LYMPH COUNT 4.2 /CUMM (1.2-3.4); ABSOLUTE MONOCYTE COUNT 1.2 /CUMM (0.10-0.60); BASOPHIL % 0.4 % (0.0-2.0); EOSINOPHIL % 3.4 % (0-5); GRANULOCYTE % 44.1 % (42.2-75.2); MEAN CORPUSCULAR HGB 28.7 PG (27.0-31.0); MEAN CORPUSCULAR HGB CONC 33.6 G/DL (33.0-37.0); MEAN CORPUSCULAR VOLUME 85.4 FL (80.0-94.0); MEAN PLATELET VOLUME 7.8 FL (7.4-10.4); PLATELET COUNT 288 /CUMM (130-400); RBC DISTRIBUTION WIDTH 13.5 % (11.5-14.5)
[2017-11-30 08:53] LABS: HEMATOCRIT 42.7 % (42-52)
[2017-11-30 09:44] LABS: WHITE BLOOD CELL COUNT 10.5 /CUMM (4.8-10.8)
--- NOTE | 2017-11-30 11:21 | PN- Housestaff ---
Tejinder Simon MD,Ami 11/30/17 1121: Subjective Follow-up For: Right forearm cellulitis Opiate abuse Review of Systems Constitutional: Reports: see HPI. Objective Last 24 Hrs of Vital Signs/I&O Vital Signs Date Time Temp Pulse Resp B/P B/P Pulse O2 O2 Flow FiO2 Mean Ox Delivery Rate 11/30 0738 97.5 93 20 124/92 97 / 0504 93 124/92 11/29 2130 98.1 110 20 148/110 97 Room Air 11/29 1954 98.5 95 18 146/92 97 Room Air Room Air 11/29 1539 98.8 97 18 158/98 97 Room Air Intake & Output 11/30 1600 11/30 0800 11/30 0000 Intake Total 1080 340 Output Total Balance 1080 340 Intake, IV 600 100 Intake, Oral 480 240 Number 0 0 Bowel Movements Patient 197 lb 210 lb Weight Weight Reported by Patient Measurement Method Physical Exam General Appearance: Alert, Oriented X3, Cooperative, No Acute Distress Skin: right forearm mass, no fluctuating, scar of old lesions at side, erythematous. extensive skin tattoos. Skin Temp/Moisture Exam: Warm/Dry Sepsis Skin Exam (color): Normal for Ethnicity HEENT: Atraumatic, EOMI, Mucous Membr. moist/pink Cardiovascular: Normal S1, Normal S2 Lungs: Clear to Auscultation, Normal Air Movement Abdomen: Soft, No Tenderness Neurological: Normal Speech, Strength at 5/5 X4 Ext Extremities: No Edema Current Medications: Current Medications Sig/Delia Start time Last Medication Dose Route Stop Time Status Admin Amlodipine Besylate 5 MG ONCE ONE 11/30 0445 DC 11/30 PO 11/30 0446 0504 Aspirin 81 MG DAILY 11/30 1000 AC 11/30 PO 0914 Clindamycin 600 MG ONCE ONE 11/29 1730 DC 11/29 Dextrose/Water 50 ML IV 11/29 1759 1918 Divalproex Sodium 500 MG BID 11/30 1000 DC PO Divalproex Sodium 500 MG BID 11/30 0030 AC 11/30 PO 0914 Enoxaparin Sodium 40 MG DAILY 11/30 1000 AC 11/30 SC 0914 Escitalopram Oxalate 20 MG DAILY 11/30 1000 AC 11/30 PO 0914 Hydroxyzine HCl 25 MG TID 11/30 1000 AC 11/30 PO 0914 Influenza Virus 0.5 ML ONCE ONE 11/30 1000 DC Vaccine IM 11/30 1001 Morphine Sulfate 2 MG Q6P PRN 11/29 193 AC IV Nicotine 21 MG DAILY 11/30 1000 AC 11/30 TOP 0045 Omeprazole 20 MG DAILY AC 11/30 1230 AC 11/30 PO 1245 Quetiapine Fumarate 100 MG QPM 11/30 2200 DC PO Quetiapine Fumarate 100 MG QPM 11/30 0030 AC 11/30 PO 0045 Sodium Chloride 1,000 ML ONCE ONE 11/29 1929 DC 11/29 IV 11/30 05 195 Vancomycin HCl 1,000 MG DAILY 11/30 1000 AC 11/30 Dextrose/Water 250 ML IV 0914 Last 24 Hrs of Lab/Dheeraj Results Last 24 Hrs of Labs/Mics: Laboratory Tests 11/30/17 0919: Urine Color YEL, Urine Clarity CLEAR, Urine pH 6.0, Ur Specific [place] >= 1.030 , Urine Protein NEG, Urine Ketones 15 H, Urine Nitrite NEG, Urine Bilirubin NEG , Urine Urobilinogen 0.2, Ur Leukocyte Esterase NEG, Ur Microscopic EXAM NOT REQUIRED, Urine Hemoglobin NEG, Urine Glucose NEG 11/30/17 0728: Anion Gap 14, Estimated GFR > 60, BUN/Creatinine Ratio 24.4, CBC w Diff NO MAN DIFF REQ, RBC 5.00, MCV 85.4, MCH 28.7, MCHC 33.6, RDW 13.5, MPV 7.8, Gran % 44.1, Lymphocytes % 40.3, Monocytes % 11.8 H, Eosinophils % 3.4, Basophils % 0.4, Absolute Granulocytes 4.6, Absolute Lymphocytes 4.2 H, Absolute Monocytes 1.2 H, Absolute Eosinophils 0.4, Absolute Basophils 0, Serum Alcohol < 10.0 11/29/171999: Urine Opiates Screen > 4000.00 H, Methadone Screen 81, Barbiturate Screen < 60, Ur Phencyclidine Scrn < 6.00, Amphetamines Screen 1032 H, U Benzodiazepines Scrn < 85, Urine Cocaine Screen < 50, Urine Cannabis Screen 79.00 H 11/29/171814: Anion Gap 17 H, Estimated GFR > 60, BUN/Creatinine Ratio 21.8, Glucose 85, Calcium 10.6 H, Total Bilirubin 0.7, AST 22, ALT 24, Alkaline Phosphatase 100, Total Protein 9.9 H, Albumin 5.4 H, Globulin 4.5 H, Albumin/Globulin Ratio 1.2, CBC w Diff NO MAN DIFF REQ, RBC 5.90, MCV 86.0, MCH 28.3, MCHC 32.9 L, RDW 14.0, MPV 7.7, Gran % 47.4, Lymphocytes % 41.0, Monocytes % 7.9, Eosinophils % 3.3, Basophils % 0.4, Absolute Granulocytes 5.3, Absolute Lymphocytes 4.6 H, Absolute Monocytes 0.9 H, Absolute Eosinophils 0.4, Absolute Basophils 0 Microbiology 11/30 1915 EXTREMITIE: Culture & Sensitivity - RES 11/30 1915 EXTREMITIE: Gram Stain - RES 11/29 1838 BLOOD: Blood Culture - RES 11/29 1814 BLOOD: Blood Culture - RES Assessment/Plan Assessment: Patient is a 47-year-old male with a past medical history of bipolar disorder, hyperlipidemia, opiate abuse, ruptured disc requiring spinal fusion "years ago", that comes to see us for right forearm swelling, redness, drainage. Symptoms started 10 days ago while patient was in [place]. He states that he had and "ingrown hair" that he attempted to drain, and woke up the next day with a swollen and painful forearm. The patient went to a walk-in clinic where he was given oral antibiotics by mouth (Bactrim), was found to be positive for MRSA. The infection continued and the patient was given intramuscular antibiotics and ultimately returned here for in-hospital treatment due to insurance issues. In the ED, patient was found to be afebrile with a pulse of 128 but decreased to 97, blood pressure elevated at 152/112, respiratory rate 18, good saturations on room air. WBCs found to be 11.2, normal creatinine, elevated albumin and protein. Tox screen was positive for opiates, amphetamines, cannabis. Patient had a popliteal fossa ultrasound which showed soft tissue swelling and edema with no discrete loculated or drainable fluid collections identified. Patient appears to have abscess on exam, reportedly MRSA as per patient report, with previous failure of antibiotics. While nodrainable has been identified, patient will require intravenous antibiotics. Patient was admitted to floor for management of following conditions: Right forearm MRSA positive abscess Ultrasound performed: Multiple open wounds, with associated soft tissue swelling and soft tissue edema. No discrete loculated or drainable fluid collections identified by ultrasound. - Continue Vancomycin 1 g daily - follow Blood cultures 2 - Extremity gram stain and culture - Morphine 2 mg every 6 when necessary for pain - Hold infectious disease consults unless patient worsens - Follow surgery consult placed Hypertension -Patient blood pressure found on admission to be elevated to 152/112, later 148/ 110. -We will give 5 mg amlodipine once and reevaluate in the morning. - currently stable - will follow Opiate abuse -Morphine 2 mg every 6 when necessary for pain as patient has high opiate level and is at risk for withdrawal symptoms History of bipolar disorder -Patient sees Dr. Mijares for his psychiatric management -Patient is refusing in-hospital psychiatric evaluation -We'll continue the patient on Depakote 500 twice a day, Wellbutrin 150 mg in the a.m. and 350 mg at night, Lexapro 20 mg every night, Seroquel 100 mg at night Chronic medical problems -Hydroxyzine 25 mg 3 times a day for restless leg syndrome -Aspirin 81 mg for heart health History of smoking -Patient smokes one pack per day -21 mg nicotine patch Lovenox for DVT prophylaxis Regular diet DNR/DNI (patient stated clearly his wishes for DNR/DNI "when it's your time, it' s your time".) Problem List: 1. Failure of outpatient treatment 2. Cellulitis and abscess of unspecified site Pain Ratin Pain Location: Right forearm Pain Goal: Pain 4 or less Pain Plan: continue current plan Tomorrow's Labs & Rationales: LESLY Ekaterina Palmer 11/30/17 1217: Attending MD Review Statement Attending Statement Attending MD Statement: examined this patient, discuss w/resident/PA/INSTRUMENT REPAIR TECHNICIAN, agreed w/resident/PA/INSTRUMENT REPAIR TECHNICIAN, discussed with family, reviewed EMR data (avail), discussed with nursing, discussed with case mgmt, reviewed images, amended to note Attending Assessment/Plan: 47 yo M smoker with h/o bipolar disorder, HTN not on medications, is here for evaluation of right forearm swelling and cellulitis. Vitals stable. Forearm ultrasound multiple open wounds with soft tissue swelling and edema. No discrete loculated or drainable fluid collections. Assessment and plan: 1. Right forearm cellulitis r/o abscess 2. MRSA infection 3. Failed outpatient therapy 4. History of bipolar disorder 5. Polysubstance abuse 6. Essential hypertension not treated Patinet on empiric iv vancomycin, achieve pain control. Surgery consult. USG with no drainable collections. cont current care..
[2017-11-30 15:00] VITALS: BP 140/102
[2017-11-30 15:19] VITALS: BP 140/102
[2017-11-30 18:00] VITALS: BP 122/88
--- NOTE | 2017-12-01 00:36 | Cons- General Surgery ---
General Information and HPI Allergies/Medications Allergies: Coded Allergies: No Known Allergies (11/21/16) Home Med List: Aspirin (Aspirin*) 81 MG TAB.CHEW 1 TAB PO DAILY heart health (Reported) Divalproex Sodium 500 MG TABLET.DR 500 MG PO BID Bipolar Please take this medication daily. You will need to have a valproic acid level checked. If your level is greater than 80mcg/ML, stop taking this madication and inform your psychiatrist. Escitalopram Oxalate (Lexapro) 20 MG TABLET 1 TAB PO DAILY DEPRESSION ( Reported) Hydroxyzine Hydrochloride (Atarax) 25 MG TAB 1 TAB PO TID ALLERGY (Reported) Quetiapine Fumarate (Seroquel) 100 MG TABLET 1 TAB PO QPM BIPOLAR (Reported) Quetiapine Fumarate (Seroquel) 400 MG TABLET 1 TAB PO QPM BIPOLAR (Reported) Current Medications: I rev Current Medications Sig/Delia Start time Last Medication Dose Route Stop Time Status Admin Amlodipine Besylate 5 MG ONCE ONE 11/30 0445 DC 11/30 PO 11/30 0446 0504 Aspirin 81 MG DAILY 11/30 1000 AC 11/30 PO 0914 Divalproex Sodium 500 MG BID 11/30 0030 AC 11/30 PO 2040 Enoxaparin Sodium 40 MG DAILY 11/30 1000 AC 11/30 SC 0914 Escitalopram Oxalate 20 MG DAILY 11/30 1000 AC / PO 0914 Hydroxyzine HCl 25 MG TID 11/30 1000 AC / PO 2040 Influenza Virus 0.5 ML ONCE ONE 11/30 1000 DC Vaccine IM 11/30 1001 Morphine Sulfate 2 MG Q6P PRN 11/29 1930 AC 11/30 IV 2359 Nicotine 21 MG DAILY 11/30 1000 AC 11/30 TOP 0045 Omeprazole 20 MG DAILY AC 11/30 1230 AC 03/ PO 1245 Quetiapine Fumarate 100 MG QPM 11/30 0030 AC 11/30 PO 2040 Sodium Chloride 1,000 ML ONCE ONE 11/29 1930 DC 03/05 IV 11/30 0529 1955 Vancomycin HCl 1,000 MG DAILY 11/30 1000 AC / Dextrose/Water 250 ML IV 0914 Past History Medical History Blood Transfusion Hx: No Neurological: NONE EENT: NONE Cardiovascular: hyperlipidemia Respiratory: NONE Gastrointestinal: NONE Hepatic: NONE Renal: NONE Musculoskeletal: INFECTION L TESTICLE RUPTURED DISK Psychiatric: bipolar disease, opioid dependence Endocrine: NONE Blood Disorders: NONE Cancer(s): NONE 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 Relation not specified for: *No pertinent family history Psychosocial History Where Do You Live? Home Who Do You Live With? self Services at Home: None Primary Language: [place] Smoking Status: Current Everyday Smoker Employment History Retired? no Exam & Diagnostic Data Vital Signs and I&O I rev Vital Signs Date Time Temp Pulse Resp B/P B/P Pulse O2 O2 Flow FiO2 Mean Ox Delivery Rate 11/30 1800 104 122/88 11/30 1519 103 140/102 11/30 1500 98.0 103 20 140/102 97 Room Air 11/30 0738 97.5 93 20 124/92 97 11/30 0504 93 124/92 I rev Intake & Output 12/01 0800 12/01 0000 11/30 1600 11/30 0800 11/30 0000 11/29 1600 Intake Total 1570 1080 1080 340 Output Total Balance 1570 1080 1080 340 Intake, IV 10 280 600 100 Intake, Oral 1560 800 480 240 Number 0 0 Bowel Movements Patient 197 lb 210 lb 210 lb Weight Weight Reported by Patient Reported by Patient Measurement Method Last 24 Hours of Labs: I rev Laboratory Tests 11/30 11/30 0919 0728 Chemistry Sodium (137 - 145 mmol/L) 140 Potassium (3.5 - 5.1 mmol/L) 4.3 Chloride (98 - 107 mmol/L) 98 Carbon Dioxide (22 - 30 mmol/L) 28 Anion Gap (5 - 16) 14 BUN (9 - 20 mg/dL) 22 H Creatinine (0.7 - 1.2 mg/dL) 0.9 Estimated GFR (>60 ml/min) > 60 BUN/Creatinine Ratio (7 - 25 %) 24.4 Hematology CBC w Diff NO MAN DIFF REQ WBC (4.8 - 10.8 /CUMM) 10.5 RBC (4.70 - 6.10 /CUMM) 5.00 Hgb (14.0 - 18.0 G/DL) 14.3 Hct (42 - 52 %) 42.7 MCV (80.0 - 94.0 FL) 85.4 MCH (27.0 - 31.0 PG) 28.7 MCHC (33.0 - 37.0 G/DL) 33.6 RDW (11.5 - 14.5 %) 13.5 Plt Count (130 - 400 /CUMM) 288 MPV (7.4 - 10.4 FL) 7.8 Gran % (42.2 - 75.2 %) 44.1 Lymphocytes % (20.5 - 51.1 %) 40.3 Monocytes % (1.7 - 9.3 %) 11.8 H Eosinophils % (0 - 5 %) 3.4 Basophils % (0.0 - 2.0 %) 0.4 Absolute Granulocytes (1.4 - 6.5 /CUMM) 4.6 Absolute Lymphocytes (1.2 - 3.4 /CUMM) 4.2 H Absolute Monocytes (0.10 - 0.60 /CUMM) 1.2 H Absolute Eosinophils (0.0 - 0.7 /CUMM) 0.4 Absolute Basophils (0.0 - 0.2 /CUMM) 0 Toxicology Serum Alcohol (<10 MG/DL) < 10.0 Urines Urine Color (YEL,AMB,STR) YEL Urine Clarity (CLEAR) CLEAR Urine pH (5.0 - 8.0) 6.0 Ur Specific Whiting (1.001 - 1.035) >= 1.030 Urine Protein (NEG,<30 MG/DL) NEG Urine Ketones (NEG) 15 H Urine Nitrite (NEG) NEG Urine Bilirubin (NEG) NEG Urine Urobilinogen (0.1 - 1.0 EU/dl) 0.2 Ur Leukocyte Esterase (NEG) NEG Ur Microscopic EXAM NOT REQUIRED Urine Hemoglobin (NEG) NEG Urine Glucose (N MG/DL) NEG Assessment/Plan Assessment/Plan Right forearm several skin wounds healing abscesses several weeks old on vancomycin clinically appears as MRSA already been I&D in [place] seems to be improving no acute general surgical intervention. Consult Acknowledgment - Thank you for your consult request.
[2017-12-01 06:46] VITALS: BP 140/91
--- NOTE | 2017-12-01 07:57 | PN- Housestaff ---
Tejinder Simon MD,Ami 12/01/17 0756: Subjective Follow-up For: Right forearm cellulitis Subjective: Patient visited today, was lying in bed comfortably in no acute distress, was alert and oriented. No fever or chills, no shortness of breathing, no chest pain, no other events. Reported improved warm adn redness of right elbow Patient was stable to be discharged on oral clindamycin Review of Systems Constitutional: Reports: see HPI. Objective Last 24 Hrs of Vital Signs/I&O Vital Signs Date Time Temp Pulse Resp B/P B/P Pulse O2 O2 Flow FiO2 Mean Ox Delivery Rate 12/01 0646 98.2 116 18 140/91 95 Room Air 11/30 1800 104 122/88 11/30 1519 103 140/102 / 1500 98.0 103 20 140/102 97 Room Air Intake & Output 12/01 1600 12/01 0800 12/01 0000 Intake Total 240 1570 Output Total Balance 240 1570 Intake, IV 10 Intake, Oral 240 1560 Physical Exam General Appearance: Alert, Oriented X3, Cooperative, No Acute Distress Skin: improved redness, swelling of right forearm lesion Scar of old previous lesions x3 Skin Temp/Moisture Exam: Warm/Dry Sepsis Skin Exam (color): Normal for Ethnicity HEENT: Atraumatic, EOMI, Mucous Membr. moist/pink Cardiovascular: Normal S1, Normal S2 Lungs: Clear to Auscultation Abdomen: Soft, No Tenderness Neurological: Normal Speech, Strength at 5/5 X4 Ext Extremities: as noted above, otherwise normal Current Medications: Current Medications Sig/Delia Start time Last Medication Dose Route Stop Time Status Admin Aspirin 81 MG DAILY 11/30 1000 AC 12/01 PO 0908 Divalproex Sodium 500 MG BID 11/30 0030 AC 12/01 PO 0908 Enoxaparin Sodium 40 MG DAILY 11/30 1000 AC 11/30 SC 0914 Escitalopram Oxalate 20 MG DAILY 11/30 1000 AC 12/01 PO 0908 Hydroxyzine HCl 25 MG TID 11/30 1000 AC 12/01 PO 0908 Morphine Sulfate 2 MG Q6P PRN 11/29 1930 AC 12/01 IV 0634 Nicotine 21 MG DAILY 11/30 1000 AC 12/01 TOP 0907 Omeprazole 20 MG DAILY AC 11/30 1230 AC 12/01 PO 0633 Quetiapine Fumarate 100 MG QPM 11/30 0030 AC 11/30 PO 0 Vancomycin HCl 1,000 MG DAILY 11/30 1000 AC 12/01 Dextrose/Water 250 ML IV 0908 Last 24 Hrs of Lab/Dheeraj Results Last 24 Hrs of Labs/Mics: Laboratory Tests 12/01/17 0626: CBC w Diff NO MAN DIFF REQ, RBC 5.05, MCV 85.7, MCH 28.9, MCHC 33.7, RDW 13.6, MPV 8.1, Gran % 41.3 L, Lymphocytes % 44.4, Monocytes % 10.0 H, Eosinophils % 3.9, Basophils % 0.4, Absolute Granulocytes 3.3, Absolute Lymphocytes 3.6 H, Absolute Monocytes 0.8 H, Absolute Eosinophils 0.3, Absolute Basophils 0 Assessment/Plan Assessment: Patient is a 47-year-old male with a past medical history of bipolar disorder, hyperlipidemia, opiate abuse, ruptured disc requiring spinal fusion "years ago", that comes to see us for right forearm swelling, redness, drainage. Symptoms started 10 days ago while patient was in [place]. He states that he had and "ingrown hair" that he attempted to drain, and woke up the next day with a swollen and painful forearm. The patient went to a walk-in clinic where he was given oral antibiotics by mouth (Bactrim), was found to be positive for MRSA. The infection continued and the patient was given intramuscular antibiotics and ultimately returned here for in-hospital treatment due to insurance issues. In the ED, patient was found to be afebrile with a pulse of 128 but decreased to 97, blood pressure elevated at 152/112, respiratory rate 18, good saturations on room air. WBCs found to be 11.2, normal creatinine, elevated albumin and protein. Tox screen was positive for opiates, amphetamines, cannabis. Patient had a popliteal fossa ultrasound which showed soft tissue swelling and edema with no discrete loculated or drainable fluid collections identified. Patient appears to have abscess on exam, reportedly MRSA as per patient report, with previous failure of antibiotics. While nodrainable has been identified, patient will require intravenous antibiotics. Patient was admitted to floor for management of following conditions: Right forearm MRSA positive abscess Ultrasound performed: Multiple open wounds, with associated soft tissue swelling and soft tissue edema. No discrete loculated or drainable fluid collections identified by ultrasound. Surgery was consulted who recommended no further procedure is needed. Patient received IV vancomycin which resulted in improvement of redness and swelling of right forearm. Cultures remain negative (as patient was on oral Bactrim from [place]). With improvement patient was discharged on oral clnidamycin to complete the course of treatment. Hypertension -Patient blood pressure found on admission to be elevated to 152/112, later 148/ 110. Patient was treated with amlodipine. Patient was discharged with recommendation to follow with PCP regarding assessment and treatment for possible essential hypertension. Opiate abuse -Morphine 2 mg every 6 when necessary for pain as patient has high opiate level and is at risk for withdrawal symptoms Patient denied recent use of opiates for 21 days. Patient was discharged with recommendation to follow with PCP regarding this issue. History of bipolar disorder -Patient sees Dr. Mijares for his psychiatric management -Patient refused in-hospital psychiatric evaluation We continued home medication. Chronic medical problems We continued home medication -Hydroxyzine 25 mg 3 times a day for restless leg syndrome -Aspirin 81 mg for heart health History of smoking -Patient smokes one pack per day -21 mg nicotine patch -Continued after discharge Lovenox for DVT prophylaxis Regular diet DNR/DNI Patient was discharged with recommendations to follow in outpatient with PCP and continue taking medication. Problem List: 1. Cellulitis Pain Ratin (at time of interview) Pain Location: None Pain Goal: Pain 4 or less Pain Plan: Continue current plan Tomorrow's Labs & Rationales: None Discharge Plan Discharge Disposition: home Stable for Discharge? Yes Ekaterina Palmer 12/01/17 1045: Attending MD Review Statement Attending Statement Attending MD Statement: examined this patient, discuss w/resident/PA/SHERIFF'S OFFICER, agreed w/resident/PA/SHERIFF'S OFFICER, discussed with family, reviewed EMR data (avail), discussed with nursing, discussed with case mgmt, reviewed images, amended to note Attending Assessment/Plan: Patient with right arm cellultiis with full range of motion of present. Patient with clinical improvement. Patient can be dsicharged on PO antibiotics as per C/ S report. Patient pain well controlled and medically stable for discharge. gi/ dvt prophyalxis
[2017-12-01 08:12] LABS: ABSOLUTE BASOPHIL COUNT 0 /CUMM (0.0-0.2); ABSOLUTE EOSINOPHIL COUNT 0.3 /CUMM (0.0-0.7); ABSOLUTE GRANULOCYTE CT 3.3 /CUMM (1.4-6.5); ABSOLUTE LYMPH COUNT 3.6 /CUMM (1.2-3.4); ABSOLUTE MONOCYTE COUNT 0.8 /CUMM (0.10-0.60); BASOPHIL % 0.4 % (0.0-2.0); EOSINOPHIL % 3.9 % (0-5); GRANULOCYTE % 41.3 % (42.2-75.2); HEMATOCRIT 43.3 % (42-52); MEAN CORPUSCULAR HGB 28.9 PG (27.0-31.0); MEAN CORPUSCULAR HGB CONC 33.7 G/DL (33.0-37.0); MEAN CORPUSCULAR VOLUME 85.7 FL (80.0-94.0); MEAN PLATELET VOLUME 8.1 FL (7.4-10.4); RBC DISTRIBUTION WIDTH 13.6 % (11.5-14.5); RED BLOOD CELL CT 5.05 /CUMM (4.70-6.10); WHITE BLOOD CELL COUNT 8.1 /CUMM (4.8-10.8)
[2017-12-01 09:17] LABS: PLATELET COUNT 289 /CUMM (130-400)
[2017-12-01] MEDS ORDERED: NICOTINE PATCH1 EAC3 TOP ×2 (09:34→11:58)
[2017-12-01] MEDS ORDERED: CLINDAMYCIN HC300 M1 PO ×2 (09:42→11:58)
[2017-12-01] MEDS ORDERED: ACIDOPHILUS1 EACH PO ×2 (10:55→11:58)
--- NOTE | 2017-12-01 10:55 | Patient Discharge Instructions ---
Discharge Instructions General Discharge Information You were seen/treated for: Cellulitis of right forearm Watch for these problems: Fever, chills, shortness of breathing, chest pain, palpitations, heart racing, severe pain of arm or worsening of any other symptoms. Special Instructions: Please follow with your PCP within one cassette discharge. Please take your medication, please come back hospital if symptoms worsen. Diet Continue normal diet: Yes Activity Full Activity/No Limits: No Activity Self Limited: Yes Acute Coronary Syndrome Inclusion Criteria At DC or during hospital stay patient has or had the following: ACS DIAGNOSIS No Discharge Core Measures Meds if any: Prescribed or Continued at Discharge Meds if any: NOT Prescribed or Continued at Discharge Congestive Heart Failure Inclusion Criteria At DC or during hospital stay patient has or had the following: CHF DIAGNOSIS No Discharge Core Measures Meds if any: Prescribed or Continued at Discharge Meds if any: NOT Prescribed or Continued at Discharge Cerebrovascular accident Inclusion Criteria At DC or during hospital stay patient has or had the following: CVA/TIA Diagnosis No Discharge Core Measures Meds if any: Prescribed or Continued at Discharge Meds if any: NOT Prescribed or Continued at Discharge Venous thromboembolism Inclusion Criteria VTE Diagnosis No VTE Type NONE VTE Confirmed by (Test) NONE Discharge Core Measures - Per Current guidelines, there needs to be overlap - treatment for the first 5 days of Warfarin therapy. - If discharged on Warfarin prior to 5 days of - overlap therapy, the patient will need to be - assessed for post discharge needs including - *Post discharge parental anticoagulation - *Warfarin and/or parental anticoagulation education - *Follow up date to check INR post discharge At least 5 days overlap therapy as Inpatient No Meds if any: Prescribed or Continued at Discharge Note: Overlap Therapy is Warfarin and Anticoagulant Meds if any: NOT Prescribed or Continued at Discharge
--- NOTE | 2017-12-01 10:57 | Discharge Summary ---
Visit Information Visit Dates Admission Date: 11/29/17 Discharge Date: 12/01/17 Hospital Course Course Attending Physician: Ekaterina Palmer MD Primary Care Physician: Ashli LINDSAY,Dmitriy Dorsey Hospital Course: Patient is a 47-year-old male with a past medical history of bipolar disorder, hyperlipidemia, opiate abuse, ruptured disc requiring spinal fusion "years ago", that comes to see us for right forearm swelling, redness, drainage. Symptoms started 10 days ago while patient was in [place]. He states that he had and "ingrown hair" that he attempted to drain, and woke up the next day with a swollen and painful forearm. The patient went to a walk-in clinic where he was given oral antibiotics by mouth (Bactrim), was found to be positive for MRSA. The infection continued and the patient was given intramuscular antibiotics and ultimately returned here for in-hospital treatment due to insurance issues. In the ED, patient was found to be afebrile with a pulse of 128 but decreased to 97, blood pressure elevated at 152/112, respiratory rate 18, good saturations on room air. WBCs found to be 11.2, normal creatinine, elevated albumin and protein. Tox screen was positive for opiates, amphetamines, cannabis. Patient had a popliteal fossa ultrasound which showed soft tissue swelling and edema with no discrete loculated or drainable fluid collections identified. Patient appeared to have abscess on exam, reportedly MRSA as per patient report, with previous failure of antibiotics. While nodrainable has been identified, patient will require intravenous antibiotics. Patient was admitted to floor for management of following conditions: Right forearm MRSA positive abscess Ultrasound performed: Multiple open wounds, with associated soft tissue swelling and soft tissue edema. No discrete loculated or drainable fluid collections identified by ultrasound. Surgery was consulted who recommended no further procedure is needed. Patient received IV vancomycin which resulted in improvement of redness and swelling of right forearm. Cultures remain negative (as patient was on oral Bactrim from [place]). With improvement patient was discharged on oral clnidamycin to complete the course of treatment. Hypertension -Patient blood pressure found on admission to be elevated to 152/112, later 148/ 110. Patient was treated with amlodipine. Patient was discharged with recommendation to follow with PCP regarding assessment and treatment for possible essential hypertension. Opiate abuse -Morphine 2 mg every 6 when necessary for pain as patient has high opiate level and is at risk for withdrawal symptoms Patient denied recent use of opiates for 21 days. Patient was discharged with recommendation to follow with PCP regarding this issue. History of bipolar disorder -Patient sees Dr. Mijares for his psychiatric management -Patient refused in-hospital psychiatric evaluation We continued home medication. Chronic medical problems We continued home medication -Hydroxyzine 25 mg 3 times a day for restless leg syndrome -Aspirin 81 mg for heart health History of smoking -Patient smokes one pack per day -21 mg nicotine patch -Continued after discharge With improvement patient was discharged with recommendations below. Allergies: Coded Allergies: No Known Allergies (11/21/16) Disposition Summary Disposition Principal Diagnosis: Right forearm MRSA positive abscess Additional Diagnosis: Hypertension Smoking Discharge Disposition: home or self care Discharge Instructions General Discharge Information Code Status: Full Code Patient's Diet: Regular Patient's Activity: as tolerated Follow-Up Instructions/Appts: Please follow with your PCP within one week of discharge. Please take your medication, please come back hospital if symptoms worsen. Medications at Discharge Discharge Medications: Continue taking these medications: Divalproex Sodium (Divalproex Sodium) 500 MG TABLET.DR 500 Milligram ORAL TWICE DAILY Qty = 14 Instructions: Please take this medication daily. You will need to have a valproic acid level checked. If your level is greater than 80mcg/ML, stop taking this madication and inform your psychiatrist. Comments: Last Taken: 12/01/17 Time: 0900 AM Escitalopram Oxalate (Lexapro) 20 MG TABLET 1 Tablet ORAL DAILY Comments: Last Taken: 12/01/17 Time: 0900 AM Quetiapine Fumarate (Seroquel) 100 MG TABLET 1 Tablet ORAL Every night Comments: Last Taken: 11/30/17 Time: 9 PM Quetiapine Fumarate (Seroquel) 400 MG TABLET 1 Tablet ORAL Every night Comments: NOT GIVEN IN HOSP. 100 MG TAB GIVEN Aspirin (Aspirin*) 81 MG TAB.CHEW 1 Tablet ORAL DAILY Qty = 30 Comments: Last Taken: 12/01/17 Time: 0900 AM Hydroxyzine Hydrochloride (Atarax) 25 MG TAB 1 Tablet ORAL THREE TIMES DAILY Qty = 30 Comments: Last Taken: 12/01/17 Time: 0900 AM Start taking the following new medications: Clindamycin HCl (Clindamycin HCl) 300 MG CAPSULE 1 Capsule ORAL EVERY SIX HOURS Qty = 28 No Refills Instructions: . Comments: NOT GIVEN IN HOSPITAL Nicotine (Nicotine Patch) 21 MG/24 HOUR PATCH.TD24 21 Milligram On the skin DAILY Qty = 14 No Refills Instructions: . Comments: Last Taken: 12/01/17 Time: 0900 AM Lactobacillus Acidophilus (Acidophilus) 1 EACH CAPSULE 1 Capsule ORAL DAILY Qty = 30 No Refills Instructions: . Comments: NOT GIVEN IN HOSPTIAL Copies To: Ashli LINDSAY,Dmitriy Dorsey Attending MD Review Statement Documenting Attending: Ekaterina Palmer MD
== END 2017-12-01 13:36 | DRG 383 ==
LOC: ERH 11:48 → ERHI 17:29 → 2NB 17:29 → ENRESERV 19:12 → CANRESERV 19:12 → ENRESERV 19:36 → ENTRNSPT 19:52 → EDTRNSPTSTS 20:46 → EDTRNSPT 20:46 → 2NB 20:57 → CMPTRNSPT 21:08 → 2NB 11-30 11:12 → ENPENDDIS 12-01 11:58 → 2NB 12-01 13:36
PROVIDERS: Emergency Medicine; Radiology Vascular & Interventional Radiology; Student in an Organized Health Care Education/Training Program
DX: L03.113 Cellulitis of right upper limb (principal); B95.62 Methicillin resistant Staphylococcus aureus infection as the cause of diseases classified elsewhere; F11.10 Opioid abuse, uncomplicated; F31.9 Bipolar disorder, unspecified; E78.5 Hyperlipidemia, unspecified; Z98.1 Arthrodesis status; F17.210 Nicotine dependence, cigarettes, uncomplicated; F12.90 Cannabis use, unspecified, uncomplicated; Z79.82 Long term (current) use of aspirin; Z66 Do not resuscitate; F19.10 Other psychoactive substance abuse, uncomplicated; I10 Essential (primary) hypertension
CPT/HCPCS: 2NBP; 87184; 36415; 36592; 76881; 80307; 81003; 82436; 87040; 87070; 87147; G0480; J1650; J3370; J3490; J7060